=== PATIENT | male | born 1955 | race Two or more races ===

== ENCOUNTER 2020-03-13 17:43 | Inpatient (IN) | payer OTHER ==
[~2020-03-13] VITALS: Ht 170.2 cm; Wt 63.5 kg
[2020-03-13] MEDS ORDERED: LEVOFLOXACIN 750 MG /D5W 150ML PIGGYBACK IV ONE (18:00)
--- NOTE | 2020-03-13 18:05 | NUR ---
MOVE SHEET SUBMITTED AND CALLED FOR [facility] BED.
--- NOTE | 2020-03-13 18:12 | NUR ---
DANIELLA FROM [facility]. TO ER BED 5. AAOX4. IN MOD RESP DISTRESS, BREATHING RAPID AND SHALLOW. ON NON REBREATHER @ 15LPM SATTING @ 95%. BROUGHT ON IN FOR DYSPNEA. PT WAS REPORTED TO HAVE 02 SAT @ 83% DESPITE THE BASLINE USE OF 02 VIA NC @ 2LPM. PER REPORT, PT WAS SATTING 96%. PT IS REPORTED TO ALREADY BE ON ATB FOR PNA. PT IS AFEBRILE UPON ASSESSMENT, 98.3 RECTALLY. WAS AT THE BEDSIDE FOR EVAL. ORDERS RECEIVED NOTED AND CARRIED OUT. IV LINE ESTABLISHED ON THE RFA 20G. BLOOD DRAWN AND GIVEN TO INSURANCE ADVISOR AT BEDSIDE. RT AT BEDSIDE WELL. EKG DONE.
[2020-03-13 18:16] LABS: ABG BASE EXCESS -5.4 mmol/L; ABG OXYGEN SATURATION 93.1 % (92.0-98.5); ABG PCO2 52.5 mmHg (35.0-45.0); ABG PH 7.243 (7.350-7.450); ABG PO2 78.6 mmHg (75.0-100.0); AaDO2 581.9 mmHg; COHb 0.3 % (0.5-1.5); MetHb 0.5 % (0.0-1.5); O2Hb 92.4 % (94.0-97.0); SITE, ABG Right Radial; VENT MODE, BG NON REBREATHER 100%
--- NOTE | 2020-03-13 18:30 | NUR ---
PT IS ON BIPAP: RATE 70%
[2020-03-13 18:33] LABS: BASOPHILS % (AUTO) 0.5 % (0.0-2.0); HEMATOCRIT 35 % (39-51); HEMOGLOBIN 11.1 g/dL (13.5-17.5); LYMPHOCYTES # (AUTO) 0.3 /CMM (0.8-4.8); LYMPHOCYTES % (AUTO) 3.9 % (20.0-44.0); MEAN CORPUSCULAR HGB CONC 32 g/dl (31.0-36.0); MEAN CORPUSCULAR VOLUME 97 fL (80-96); MONOCYTES # (AUTO) 0.2 /CMM (0.1-1.30); MONOCYTES % (AUTO) 2.9 % (2.0-12.0); NEUTROPHILS % (AUTO) 92.7 % (43.0-81.0); PLATELET COUNT (AUTO) 213 /CMM (150-450); RED BLOOD CELL COUNT(AUTO) 3.57 MIL/uL (4.5-6.0); WHITE BLOOD COUNT (AUTO) 7.6 K/uL (4.3-11.0)
[2020-03-13] MEDS ORDERED: BISM262T14 PO (18:35)
[2020-03-13] MEDS ORDERED: TAMS-12 PO (18:35)
[2020-03-13] MEDS ORDERED: AMIO200T4 PO (18:35)
[2020-03-13] MEDS ORDERED: FURO80TA85 PO (18:35)
[2020-03-13] MEDS ORDERED: MAGN400O6 PO (18:35)
[2020-03-13] MEDS ORDERED: ACET-2605 PO (18:35)
[2020-03-13] MEDS ORDERED: CLOP75TA15 PO (18:35)
[2020-03-13] MEDS ORDERED: CHOL100040 PO (18:35)
[2020-03-13] MEDS ORDERED: PANT40TA49 PO (18:35)
[2020-03-13] MEDS ORDERED: ASPI-1169 PO (18:35)
[2020-03-13] MEDS ORDERED: NA P133E RC (18:35)
[2020-03-13] MEDS ORDERED: CRAN450C PO (18:35)
[2020-03-13] MEDS ORDERED: CARV6.25 PO (18:35)
[2020-03-13] MEDS ORDERED: ACET325C7 PO (18:35)
[2020-03-13] MEDS ORDERED: SENN-175 PO (18:35)
[2020-03-13] MEDS ORDERED: BISA10SU61 RC (18:35)
[2020-03-13 18:59] LABS: D-DIMER 1.26 mg/L(FEU (0.17-0.50)
--- NOTE | 2020-03-13 19:04 | NUR ---
SPOKE WITH NILA CASEY STATISTICIAN FOR CLINICAL UPDATES. WILL CALL BACK FOR APPROVAL
[2020-03-13 19:11] LABS: CREATINE KINASE, TOTAL 95 U/L (39-308); FERRITIN 422 ng/mL (8-388)
[2020-03-13 19:12] LABS: C-REACTIVE PROTEIN 5.2 mg/dL (0.0-0.9)
[2020-03-13 19:29] LABS: ALANINE AMINOTRANSFERASE 44 U/L (12-78); ALKALINE PHOSPHATASE 129 U/L (46-116); ASPARTATE AMINOTRANSFERASE 53 U/L (15-37); B-TYPE NATRIURETIC PEPTIDE 29271 PG/ML (0-125); BILIRUBIN,TOTAL 0.4 mg/dL (0.2-1.0); CALCIUM, SERUM 8.4 mg/dL (8.5-10.1); CARBON DIOXIDE 22 mmol/L (21-32); CHLORIDE 101 mmol/L (98-107); CREATININE 2.9 mg/dL (0.6-1.3); GLUCOSE 198 mg/dL (74-106); SODIUM SERUM 133 mmol/L (136-145); TOTAL PROTEIN, SERUM 7.6 g/dL (6.4-8.2); UREA NITROGEN, BLOOD 46 mg/dL (7-18)
[2020-03-13 19:34] LABS: POTASSIUM 6.8 mmol/L (3.5-5.1)
--- NOTE | 2020-03-13 19:45 | NUR ---
JAGRUTI PLATT (SON): [phone]
--- NOTE | 2020-03-13 19:46 | NUR ---
SON GIVEN UPDATE REGARDING HIS FATHER
[2020-03-13] MEDS ORDERED: FUROSEMIDE 20 MG/2 ML VIAL ONE (19:54)
[2020-03-13] MEDS ORDERED: INSULIN REGULAR, HUMAN 100 UNIT/ML 10 ML VIAL ONE (19:55)
[2020-03-13] MEDS ORDERED: CALCIUM CHLORIDE 1,000 MG/10 ML DISP.SYRIN ONE (19:55)
[2020-03-13] MEDS ORDERED: DEXTROSE 50%-WATER 50 ML DISP.SYRIN ONE (19:55)
[2020-03-13] MEDS ORDERED: SODIUM BICARBONATE SYR 50 MEQ/50 ML DISP.SYRIN ONE (19:55)
[2020-03-13] MEDS ORDERED: SODIUM BICARBONATE SYR 50 MEQ/50 ML DISP.SYRIN IV ONE (20:00)
[2020-03-13] MEDS ORDERED: INSULIN REGULAR, HUMAN 100 UNIT/ML 10 ML VIAL IV ONE (20:00)
[2020-03-13] MEDS ORDERED: FUROSEMIDE 40 MG/4 ML VIAL IV ONE (20:00)
[2020-03-13] MEDS ORDERED: ALBUTEROL FS 2.5 MG/3 ML VIAL.NEB NEB ONE (20:00)
[2020-03-13] MEDS ORDERED: CALCIUM CHLORIDE 1,000 MG/10 ML DISP.SYRIN IV ONE (20:00)
[2020-03-13] MEDS ORDERED: DEXTROSE 50%-WATER 50 ML DISP.SYRIN IV ONE (20:00)
[2020-03-13] MEDS ORDERED: ALBUTEROL FS 2.5 MG/3 ML VIAL.NEB ONE ×2 (20:32→20:44)
[2020-03-13] MEDS ORDERED: IPRATROPIUM NEB FS 0.5 MG/2.5 ML AMPUL.NEB NEB PRN (21:00)
[2020-03-13] MEDS ORDERED: FUROSEMIDE 40 MG/4 ML VIAL IV SCH (21:00)
[2020-03-13] MEDS ORDERED: MAGNESIUM HYDROXIDE 30 ML UDC PO PRN (21:00)
[2020-03-13] MEDS ORDERED: DEXTROSE 50%-WATER 50 ML DISP.SYRIN IV PRN (21:00)
[2020-03-13] MEDS ORDERED: CEFEPIME 1 GM in IV D5W 50 ML IV SCH (21:00)
[2020-03-13] MEDS ORDERED: LEVALBUTEROL HCL NEB 1.25 MG/0.5 ML VIAL.NEB NEB PRN (21:00)
[2020-03-13] MEDS ORDERED: BISMUTH SUBSALICYLATE TAB 262 MG TAB.CHEW PO SCH (21:00)
[2020-03-13] MEDS ORDERED: BISACODYL SUPP (10 MG) 10 MG/SUPP.RECT SUPP.RECT RC PRN (21:00)
[2020-03-13] MEDS ORDERED: SODIUM POLYSTYRENE SULFONATE 15 G/60 ML BOTTLE PO ONE (21:00)
[2020-03-13] MEDS ORDERED: CEFEPIME 2 GM in IV D5W 100 ML IV SCH (21:00)
[2020-03-13] MEDS ORDERED: NA PHOS,M-B/NA PHOS,DI-BA 1 EA ENEMA RC PRN (21:00)
[2020-03-13 21:36] LABS: CALCIUM, SERUM 9.7 mg/dL (8.5-10.1); CREATININE 2.9 mg/dL (0.6-1.3); POTASSIUM 5.1 mmol/L (3.5-5.1)
--- NOTE | 2020-03-13 21:38 | NUR ---
RT AT BEDSIDE FOR BIPAP WEENING
[2020-03-13] MEDS ORDERED: VANCOMYCIN 1 GM in IV D5W 250 ML IV SCH (22:00)
--- NOTE | 2020-03-13 22:12 | NUR ---
REPORT GIVEN TO DAVIDA KC FOR KELSI.
--- NOTE | 2020-03-13 22:27 | NUR ---
ADDITIONAL URINE OUTPUT NOTED AT 625ML.
[2020-03-13 22:38] LABS: APPEARANCE,URINE CLOUDY (CLEAR); BILIRUBIN,URINE NEGATIVE (NEGATIVE); BLOOD, URINE MODERATE Ery/uL (NEGATIVE); COLOR,URINE YELLOW (YELLOW); KETONES,URINE NEGATIVE (NEGATIVE); LEUKOCYTE ESTERASE ,URINE LARGE (NEGATIVE); NITRITE, URINE NEGATIVE (NEGATIVE); PROTEIN,URINE 30 mg/dl (NEGATIVE); UGLUCOSE NEGATIVE (NEGATIVE); UROBILINOGEN,URINE 0.2 EU/dL (0.2)
[2020-03-13] MEDS: IV NS 0.9% 250 ML IV PRN (22:39)
--- NOTE | 2020-03-13 22:39 | NUR ---
PT TRANSPORTED TO UNIT ON GURNEY WITH EMT AND RN AT BEDSIDE W/ ACLS PROTOCOL. NAD NOTED DURING TRANSPORT.
[2020-03-13 22:43] LABS: BACTERIA,URINE Moderate /HPF (None Seen); SQUAMOUS EPITHELIAL CELL,UR Rare /HPF (None Seen); WBC,URINE TOO NUMEROUS TO COUN /HPF (0-3)
[2020-03-13 22:46] VITALS: BP 134/92
[2020-03-13] MEDS: HEPARIN SODIUM, PORCINE 5000 UNITS/1 ML VIAL SQ SCH (22:48)
[2020-03-13] MEDS: BLOOD SUGAR DIAGNOSTIC 1 EACH STRIP VI SCH (22:51)
[2020-03-13] MEDS: *INSULIN REGULAR(HUMULIN R)HUM 100 UNIT/ML VIAL SQ PRN (22:54)
[2020-03-13 23:00] VITALS: BP 127/86
--- NOTE | 2020-03-13 23:00 | NUR ---
PEST CONTROL SERVICE TECHNICIAN NON ADMIT PO MEDS AT THIS TIME PT IS SEVERELY SOB; WILL PLACE ON BIPAP.
[2020-03-13] MEDS: ATORVASTATIN 40 MG TABLET PO SCH (23:02)
[2020-03-13] MEDS: TAMSULOSIN 0.4 MG CAP.SR.24H PO SCH (23:02)
[2020-03-13] MEDS: BISMUTH SUBSALICYLATE 262 MG/15 ML BOTTLE PO SCH (23:02)
[2020-03-13] MEDS: SENNOSIDES 8.6 MG TABLET PO SCH (23:03)
--- NOTE | 2020-03-13 23:15 | NUR ---
DOOR AND ARRIVAL ATTENDANT PT RCD FROM ER W/LABORED BREATHING AND LOW O2 UNABLE TO ANSWER QUESTIONS AT THIS TIME. CALL PLACED TO DR WILLETT W/ORDERS TO PLACE ON BIPAP. RT NOTIFIED.
--- NOTE | 2020-03-13 23:55 | NUR ---
DENTAL OFFICE RECEPTIONIST PLACED ON BIPAP 11/11 14 100%; DECREASED WORK OF BREATHING NOTED. CONTINUE TO MONITOR. F/U WITH ABG AND CXR IN AM.
--- NOTE | 2020-03-13 23:55 | NUR ---
PT WAS ON NRB O2 SAT 82% AND LABORED BREATHING. PER DR WILLETT TO PLACE PT BACK ON BIPAP. SETTINGS 15/, 14, 100%. PT IS AWAKE AND ALERT AND HE SAID HE IS MORE COMFORTABLE WITH BIPAP ON. ALARMS SET AND AUDIBLE. CONTINUE TO MONITOR. Addendum: 03/13/20 at 2358 by JOSE ARMANDO WEBBER RT Amended: Links added.
[2020-03-14] VITALS (37 sets, daily range): BP systolic 88–145; BP diastolic 39–88
[2020-03-14 04:17] LABS: BASOPHILS % (AUTO) 0.3 % (0.0-2.0); HEMATOCRIT 33 % (39-51); HEMOGLOBIN 10.6 g/dL (13.5-17.5); LYMPHOCYTES # (AUTO) 0.3 /CMM (0.8-4.8); LYMPHOCYTES % (AUTO) 4.4 % (20.0-44.0); MEAN CORPUSCULAR HGB CONC 33 g/dl (31.0-36.0); MEAN CORPUSCULAR VOLUME 95 fL (80-96); MONOCYTES # (AUTO) 0.4 /CMM (0.1-1.30); MONOCYTES % (AUTO) 5.6 % (2.0-12.0); NEUTROPHILS # (AUTO) 6.3 /CMM (1.8-8.9); NEUTROPHILS % (AUTO) 89.7 % (43.0-81.0); PLATELET COUNT (AUTO) 190 /CMM (150-450); RED BLOOD CELL COUNT(AUTO) 3.43 MIL/uL (4.5-6.0); WHITE BLOOD COUNT (AUTO) 7.1 K/uL (4.3-11.0)
[2020-03-14 04:30] LABS: ALBUMIN 2.7 g/dL (3.4-5.0); BILIRUBIN,TOTAL 0.4 mg/dL (0.2-1.0); CALCIUM, SERUM 9.1 mg/dL (8.5-10.1); CREATININE 2.8 mg/dL (0.6-1.3); POTASSIUM 4.8 mmol/L (3.5-5.1); TOTAL PROTEIN, SERUM 6.9 g/dL (6.4-8.2)
[2020-03-14 04:36] LABS: THYROID STIMULATING HORMONE 2.172 uIU/mL (0.358-3.74)
--- NOTE | 2020-03-14 07:30 | NUR ---
RN NOTES RECEIVED PATIENT, ASLEEP BUT IS EASILY AWAKEN BY VERBAL STIMULI, A/O X4. ABLE TO RESPOND APPROPRIATELY. ABLE TO FOLLOW COMMAND. ON BIPAP, NO SHORTNESS OF BREATH NOTED. SATING FINE. SINUS EREN ON THE MONITOR WITH HR ON THE HIGH 50s. WARMTH TO TOUCH BUT ID AFEBRILE AT 97.8. HADDAD CATHETER IN PLACE, DRAINING VIA GRAVITY TO YELLOW CLOUDY URINE. PATIENT ENCOURAGE TO CALL FOR HELP/ASSISTANCE, VERBALIZE FEELINGS AND CONCERN. CALL LIGHT PLACE WITHIN REACH. SAFETY MEASURES OBSERVED AND MAINTAINED. PATIENT INFORMED ABOUT COVID ISOLATION AND THGE GOALS FOR TODAY. WILL CONRINUE TO MONITOR PATIENT ACCORDINGLY
[2020-03-14] MEDS: BLOOD SUGAR DIAGNOSTIC 1 EACH STRIP VI SCH ×4 (08:42→22:28)
--- NOTE | 2020-03-14 08:45 | NUR ---
RT Pt taken off BiPAP and placed on 15L non rebreather per Dr. Hudson request. Pt is tolerating well, no SOB or respiratory distress noted. Addendum: 03/14/20 at 0909 by FRANK MORA RT Amended: Links added.
[2020-03-14] MEDS: BISMUTH SUBSALICYLATE 262 MG/15 ML BOTTLE PO SCH ×4 (09:00→21:52)
[2020-03-14] MEDS: CLOPIDOGREL BISULFATE 75 MG TABLET PO SCH (09:00)
[2020-03-14] MEDS: CARVEDILOL 3.125 MG TABLET PO SCH ×2 (09:00→17:00)
[2020-03-14] MEDS ORDERED: AMIODARONE HCL 200 MG TABLET PO SCH (09:00)
[2020-03-14] MEDS: PANTOPRAZOLE 40 MG TABLET.DR PO SCH ×2 (09:00→17:23)
[2020-03-14] MEDS ORDERED: CARVEDILOL 6.25 MG TABLET PO SCH (09:00)
[2020-03-14] MEDS: ASPIRIN 81 MG TAB.CHEW PO SCH (09:00)
[2020-03-14] MEDS: TAMSULOSIN 0.4 MG CAP.SR.24H PO SCH (09:00)
--- NOTE | 2020-03-14 09:00 | NUR ---
RN NOTES MEDICATIONS NOT ADMINISTERED AAS PATIENT IN ON BIPAP MASK
[2020-03-14 09:25] LABS: ABG BASE EXCESS 0.1 mmol/L; ABG OXYGEN SATURATION 95.2 % (92.0-98.5); ABG PCO2 50.3 mmHg (35.0-45.0); ABG PH 7.338 (7.350-7.450); ABG PO2 77.8 mmHg (75.0-100.0); AaDO2 439.8 mmHg; COHb 0.1 % (0.5-1.5); MetHb 0.3 % (0.0-1.5); O2Hb 94.8 % (94.0-97.0); SITE, ABG Left Brachial
[2020-03-14] MEDS: FUROSEMIDE 40 MG/4 ML VIAL IV SCH ×2 (09:42→18:08)
[2020-03-14] MEDS: DEXAMETHASONE SOD PHOSPHATE 10 MG/ML VIAL IV SCH (09:42)
[2020-03-14] MEDS: HEPARIN SODIUM, PORCINE 5000 UNITS/1 ML VIAL SQ SCH ×2 (09:43→21:56)
[2020-03-14 11:44] LABS: ABG BASE EXCESS 1.6 mmol/L; ABG OXYGEN SATURATION 95.2 % (92.0-98.5); ABG PCO2 53.8 mmHg (35.0-45.0); ABG PH 7.337 (7.350-7.450); ABG PO2 79.2 mmHg (75.0-100.0); AaDO2 434.7 mmHg; COHb 0.3 % (0.5-1.5); MetHb 0.3 % (0.0-1.5); O2Hb 94.6 % (94.0-97.0); SITE, ABG Left Brachial
[2020-03-14] MEDS: INSULIN REGULAR, HUMAN 100 UNIT/ML 3 ML VIAL SQ PRN (12:13)
--- NOTE | 2020-03-14 17:00 | NUR ---
RN NOTES CARVEDILOL NOT GIVEN DUE TO PATIENT SYSTOLIC BLOOD PRESSURE <100MMHG
[2020-03-14] MEDS: *INSULIN REGULAR(HUMULIN R)HUM 100 UNIT/ML VIAL SQ PRN (17:31)
--- NOTE | 2020-03-14 19:15 | NUR ---
ICU/RN RECEIVED PATIENT ON NRB AT 15L. PATIENT AT THIS TIME DOES NOT COMPLAIN OF ANY SOB. PATIENT IS A/O X4 GAMBIAN AND PASHTO SPEAKING. TEACHING WAS GIVEN IF PATIENT EXPERIENCES EPISODES OF SOB THAT WE WILL NEED TO PLACE HIM ON BIPAP. HE SAYS HE IS ABLE TO TOLERATE THE NRB AT THIS TIME WITH NO SOB. PATIENT DOES NOT SEEM IN DISTRESS. PATIENT ON THE MONITOR SHOWING SINUS WITH EPISODES OF SINUS EREN HR AT 55. FC IN PLACE WITH YELLOW OUTPUT. PATIENT IS AFEBRILE AT 97.9. ALL SAFETY PRECAUTIONS APPLIED WILL CONTINUE TO MONITOR.
[2020-03-14] MEDS: SENNOSIDES 8.6 MG TABLET PO SCH (21:52)
[2020-03-14] MEDS: ATORVASTATIN 40 MG TABLET PO SCH (21:54)
[2020-03-14] MEDS: INSULIN GLARGINE, 100 UNIT/ML CARTRIDGE SQ SCH (22:00)
[2020-03-14] MEDS ORDERED: VANCOMYCIN 0.75 GM in IV D5W 250 ML IV SCH (22:00)
--- NOTE | 2020-03-14 22:00 | NUR ---
ALL MEDS GIVEN. PATIENT COMFORTABLE IN BED WITH NO SIGN OF ANY DISTRESS.
[2020-03-15] VITALS (30 sets, daily range): BP systolic 88–134; BP diastolic 52–76
[2020-03-15] MEDS: FUROSEMIDE 40 MG/4 ML VIAL IV SCH (01:44)
--- NOTE | 2020-03-15 02:07 | NUR ---
PATIENT SEEMS TO BE HAVING SOME SOB. RESPIRATIONS ARE AT 30/MIN. PATIENT'S SPO2 IS AT 90%. I ASKED PATIENT IF HE WAS HAVING SOB HE SAID "JUST A LITTLE". I ASKED PATIENT IS HE WOULD WANT TO BE PLACED ON THE BIPAP MACHINE AND HE REFUSED. HE SAYS "THE BIPAP MACHINE IS TOO STRONG". I EXPLAINED TO HIM THE BENEFIT OF THE MACHINE BUT PATIENT STILL REFUSED. WILL CONTINUE TO MONITOR PATIENT FOR CONTINUATION OF DESATURATING SPO2.
[2020-03-15 04:03] LABS: BASOPHILS % (AUTO) 0.1 % (0.0-2.0); HEMATOCRIT 34 % (39-51); HEMOGLOBIN 10.7 g/dL (13.5-17.5); LYMPHOCYTES # (AUTO) 0.3 /CMM (0.8-4.8); LYMPHOCYTES % (AUTO) 2.8 % (20.0-44.0); MEAN CORPUSCULAR HGB CONC 32 g/dl (31.0-36.0); MEAN CORPUSCULAR VOLUME 96 fL (80-96); MONOCYTES # (AUTO) 0.4 /CMM (0.1-1.30); MONOCYTES % (AUTO) 3.9 % (2.0-12.0); NEUTROPHILS # (AUTO) 9.2 /CMM (1.8-8.9); NEUTROPHILS % (AUTO) 93.2 % (43.0-81.0); PLATELET COUNT (AUTO) 186 /CMM (150-450); RED BLOOD CELL COUNT(AUTO) 3.51 MIL/uL (4.5-6.0); WHITE BLOOD COUNT (AUTO) 9.9 K/uL (4.3-11.0)
[2020-03-15 04:30] LABS: CALCIUM, SERUM 8.6 mg/dL (8.5-10.1); POTASSIUM 3.8 mmol/L (3.5-5.1)
--- NOTE | 2020-03-15 06:50 | NUR ---
SPOKE TO PATIENT'S FAMILY MEMBER DANICA (SON). JUST WANTING TO KNOW THE STATUS ON HIS PATIENT. ANSWERED ALL QUESTIONS. THE SON DID MENTION THAT HE WOULD LIKE TO DROP OFF THE PATIENTS PHONE TO HIM IN THE NEXT COUPLE OF DAYS.
--- NOTE | 2020-03-15 07:26 | NUR ---
WOUND CARE CONSULT: REVIEWED CHART AND NURSING DOCUMENTATION. CURRENT CRISTIANE SCORE IS 14. RECOMMENDATIONS MADE FOR SKIN PROTECTION. DISCUSSED WITH NURSING STAFF. WILL SEE PRN. PT IS ON [facility] LOW AIRLOSS BED. MD IN AGREEMENT WITH PLAN OF CARE.
--- NOTE | 2020-03-15 08:15 | NUR ---
RN OPENING NOTE: RECEIVED PATIENT IN BED THIS MORNING. PATIENT IS AAOX4, RESPONDS APPROPRIATELY. ON HIGH FLOW, TOLERATING SETTINGS WELL. NO SIGNS OF ACUTE DISTRESS NOTED AT THIS TIME. SR IN THE 70S NOTED ON THE BEDSIDE MONITOR. PATIENT HAS HADDAD, DRAINING. #20 RFA 322 KADE, C/D/I, FLUSHING WELL, NO SIGNS OF COMPLICATIONS NOTED. SAFETY MEASURES IMPLEMENTED, BED IN LOWEST POSITION, LOCKED, SIDE RAILS UP, CALL LIGHT WITHIN REACH. WILL CONTINUE TO MONITOR PATIENT FOR CHANGES.
[2020-03-15 08:46] LABS: ABG BASE EXCESS 2.3 mmol/L; ABG OXYGEN SATURATION 90.4 % (92.0-98.5); ABG PCO2 56.2 mmHg (35.0-45.0); ABG PH 7.333 (7.350-7.450); ABG PO2 60.3 mmHg (75.0-100.0); AaDO2 596.5 mmHg; COHb 0.5 % (0.5-1.5); MetHb 0.3 % (0.0-1.5); O2Hb 89.7 % (94.0-97.0); SITE, ABG Left Brachial; VENT MODE, BG NRB 15 LPM
[2020-03-15] MEDS: DEXAMETHASONE SOD PHOSPHATE 10 MG/ML VIAL IV SCH (08:56)
[2020-03-15] MEDS: HEPARIN SODIUM, PORCINE 5000 UNITS/1 ML VIAL SQ SCH ×2 (08:56→20:57)
[2020-03-15] MEDS: CARVEDILOL 3.125 MG TABLET PO SCH ×2 (08:56→17:00)
[2020-03-15] MEDS: BISMUTH SUBSALICYLATE 262 MG/15 ML BOTTLE PO SCH ×4 (08:57→20:55)
[2020-03-15] MEDS: ASPIRIN 81 MG TAB.CHEW PO SCH (08:57)
[2020-03-15] MEDS: CLOPIDOGREL BISULFATE 75 MG TABLET PO SCH (08:57)
[2020-03-15] MEDS: TAMSULOSIN 0.4 MG CAP.SR.24H PO SCH (08:57)
[2020-03-15] MEDS: Z GUARD REMEDY 2 OZ OINT TP PRN (09:03)
[2020-03-15] MEDS: PANTOPRAZOLE 40 MG TABLET.DR PO SCH ×2 (09:03→17:06)
[2020-03-15] MEDS: Z GUARD REMEDY 2 OZ OINT TP SCH (09:05)
[2020-03-15] MEDS: BLOOD SUGAR DIAGNOSTIC 1 EACH STRIP VI SCH ×4 (09:15→21:03)
[2020-03-15] MEDS: INSULIN REGULAR, HUMAN 100 UNIT/ML 3 ML VIAL SQ PRN ×4 (09:24→21:33)
[2020-03-15] MEDS: MEROPENEM 1 G in IV NS 0.9% 100 ML IV SCH ×2 (09:25→20:54)
--- NOTE | 2020-03-15 10:30 | NUR ---
DR JOSHI FILLED OUT PAPERWORK FOR PATIENT'S CONVALESCENT PLASMA. FAXED OVER TO LAB.
[2020-03-15 10:36] LABS: THYROID STIMULATING HORMONE 1.053 uIU/mL (0.358-3.74)
--- NOTE | 2020-03-15 11:00 | NUR ---
PHARMACY STILL PREPARING ACTEMRA
--- NOTE | 2020-03-15 11:27 | NUR ---
RECEIVED COVID RESULT, PATIENT IS POSITIVE PER LAB.
--- NOTE | 2020-03-15 11:28 | NUR ---
ICU MADE AWARE OF PCR RESULT.
[2020-03-15] MEDS ORDERED: TOCILIZUMAB 400 MG in IV NS 0.9% 80 ML IV ONE (12:30)
--- NOTE | 2020-03-15 14:03 | NUR ---
PHARMACY IS STILL PREPARING ZYVOX.
[2020-03-15] MEDS: LINEZOLID RTU BAG 600 MG in PREMIX 1 EA IV SCH ×2 (14:57→23:27)
--- NOTE | 2020-03-15 17:43 | NUR ---
PRELIMINARY RESULT OF ECHOCARDIOGRAM SHOWED EF 25-30%~. RN ADVISED OF INITIAL FINDING .
--- NOTE | 2020-03-15 18:29 | NUR ---
RN CLOSING NOTE: PATIENT REMAINS IN BED. NO SIGNS OF ACUTE DISTRESS NOTED AT THIS TIME. SSR IN THE 60S ON THE MONITOR. SAFETY MEASURES IMPLEMENTED, BED IN LOWEST POSITION, LOCKED, SIDE RAILS UP, CALL LIGHT WITHIN REACH. WILL ENDORSE TO ONCOMING SHIFT RN FOR CONTINUITY OF CARE.
--- NOTE | 2020-03-15 19:01 | NUR ---
INFORMED PM RN TO FOLLOW UP WITH ECHO RESULTS AND RELAY TO
--- NOTE | 2020-03-15 19:30 | NUR ---
RN NOTE RECEIVED PT IN BED, AO X4, NO S/SX OF ACUTE DISTRESS AT THIS TIME. PATIENT'S BREATHING APPEARS LABORED. PATIENT IS ON 15 L OF OXYGEN VIA HIGH FLOW NC; TOLERATING WELL. PATIENT ON TELE MONITORING READING SR, HR IS AT 60'S. NOTED IV SITE AT KADE G22, AND LFA G20 WITH NS AT TKO, BOTH PATENT AND FLUSHING WELL, NO S/S OF INFECTION OR INFILTRATION. NO SKIN ISSUES NOTED. HADDAD CATH CONNECTED TO URINE BAG IN PLACE AND DRAINING TO A CLEAR YUE URINE. SAFETY MEASURES IMPLEMENTED PER PROTOCOL. PATIENT BED ALARM IS ON. HEAD OF BED ELEVATED. BED IS LOCKED, IN LOWEST POSITION AND SIDE RAILS UP. CALL LIGHT WITHIN REACH OF THE PATIENT. WILL CONTINUE TO MONITOR AND REASSESS FOR ANY CHANGES. Addendum: 03/15/20 at 2232 by OLYA HU RN PATIENT CURRENTLY ON 60 LPM OF SUPPLEMENTAL OXYGEN VIA HIGH FLOW.
[2020-03-15] MEDS: ATORVASTATIN 40 MG TABLET PO SCH (21:02)
[2020-03-15] MEDS: SENNOSIDES 8.6 MG TABLET PO SCH (21:02)
[2020-03-15] MEDS: INSULIN GLARGINE, 100 UNIT/ML CARTRIDGE SQ SCH (21:24)
--- NOTE | 2020-03-15 21:27 | NUR ---
RT NOTE PT RECEIVED ON HIGH FLOW NASAL CANNULA @ 95% ON 60 LPM. PT AWAKE/ALERT. NO DISTRESS NOTED AT THIS TIME. WATER BAG LEVEL GOOD. WILL CONTINUE TO MONITOR. Addendum: 03/15/20 at 2128 by SALOMÓN WEST RT Amended: Links added.
--- NOTE | 2020-03-15 23:15 | NUR ---
RN NOTE NOTED FIO2 TITRATED TO 85% @ 60 LPM BY SALOMÓN CARDOZA. WILL CONT TO MONITOR.
--- NOTE | 2020-03-15 23:15 | NUR ---
RT NOTE PT AWAKE/ALERT. TITRATED FIO2 TO 85% @ 60 LPM. RN OLYA AWARE. NO DISTRESS NOTED. WATER BAG 1/2 FULL. WILL CONTINUE TO MONITOR.
[2020-03-15] MEDS: IV NS 0.9% 250 ML IV PRN (23:53)
[2020-03-16] VITALS (50 sets, daily range): BP systolic 86–116; BP diastolic 43–74
--- NOTE | 2020-03-16 01:10 | NUR ---
RN NOTED NOTED SATURATION AT 88-89%. HOB ELEVATED AND ADVISED PATIENT TO PERFORM DEEP BREATHING. RT NOTIFIED. WILL CONT TO MONITOR.
--- NOTE | 2020-03-16 01:21 | NUR ---
RT NOTE INCREASED FIO2 TO 90% DUE TO DESATURATION. SPO2 @ 90-91%. WILL CONTINUE TO MONITOR. DAVIDA DOBSON AT BEDSIDE.
--- NOTE | 2020-03-16 02:50 | NUR ---
RN NOTE NOTED PATIENT SATURATING AT 87% ON FIO2 90% AT 60 LPM VIA HIGH FLOW. RT NOTIFIED. FIO2 TITRATED UP TO 95%, SATURATION SUSTAINED AT 85-86%. GRANULATOR OPERATOR MADE AWARE AND DR GARZA NOTIFIED. ORDERS TO INTUBATE PATIENT RECEIVED. Addendum: 03/16/20 at 0521 by OLYA HU RN PATIENT WAS PUT ON 15 LPM VIA NRB MASK IN ADDITION TO HIGH FLOW 60 LPM AT FIO2 95%.
--- NOTE | 2020-03-16 03:00 | NUR ---
ICU/RN- ABGS DONE BY RT. ON NRB 100% + HI FLOW 100%, SATS.-83%
[2020-03-16 03:04] LABS: ABG BASE EXCESS 3.8 mmol/L; ABG OXYGEN SATURATION 83.4 % (92.0-98.5); ABG PCO2 47.8 mmHg (35.0-45.0); ABG PH 7.404 (7.350-7.450); ABG PO2 48.2 mmHg (75.0-100.0); COHb 0.3 % (0.5-1.5); MetHb 0.1 % (0.0-1.5); O2Hb 83.1 % (94.0-97.0); SITE, ABG Right Brachial; VENT MODE, BG HFNC 95% 60LPM/ NRB 100%
--- NOTE | 2020-03-16 03:15 | NUR ---
ICU/RN- DR. CONNER MADE AWARE OF PT. RESPIRATORY STATUE AND ABGS W/ RBTO TO REQUEST ER MD TO INTUBATE PT.
--- NOTE | 2020-03-16 03:41 | NUR ---
ICU/RN- DR. DOOLEY HERE TO INTUBATE PT. W/ ORDER TO ADMINISTER ETOMIDATE 10MGS IVP + ROCURONIUM 80MG IVP IMMEDIATELY PRIOR TO INTUBATION.
--- NOTE | 2020-03-16 03:45 | NUR ---
ICU/RN- PT. INTUBATED BY DR. DOOLEY W/ A ETT 7.5 AT 21CM AT THE LIP AND SECURED WELL BY RT W/ OLIVARES AND HOOKED UP TO THE VENT W/ INITIAL SETTINGS OF AC-16, VT-500, FIO2-100%, PEEP+5. WILL DO ABG IN 1 HR.
--- NOTE | 2020-03-16 03:50 | NUR ---
RT NOTE PT INTUBATED WITH 7.5 ET TUBE @ 21 CM. ET TUBE SECURED VIA ANCHOR FAST. BILATERAL CHEST RISE. AMBU BAG @ HOB. SX DONE, SMALL THICK WHITE/YELLOW SECRETIONS NOTED. ALARMS ON AND AUDIBLE. VENT PLUGGED TO RED OUTLET. NO DISTRESS NOTED. WILL DRAW ABG IN ONE HOUR. Addendum: 03/16/20 at 0416 by SALOMÓN WEST RT Amended: Links added.
[2020-03-16] MEDS: PROPOFOL 100 ML IV PRN ×2 (04:03→14:09)
--- NOTE | 2020-03-16 04:03 | NUR ---
ICU/RN- ON THE VENT PER ETT ON AC MODE, RR- 30/MIN. DIPRIVAN DRIP INITIATED AT 5MCG/KG/MIN. PER DR. DOOLEY ORDER. WILL TITRATE PER PROTOCOL.
[2020-03-16 04:53] LABS: BASOPHILS % (AUTO) 0.1 % (0.0-2.0); HEMATOCRIT 31 % (39-51); LYMPHOCYTES # (AUTO) 0.2 /CMM (0.8-4.8); LYMPHOCYTES % (AUTO) 2.7 % (20.0-44.0); MEAN CORPUSCULAR HGB CONC 32 g/dl (31.0-36.0); MEAN CORPUSCULAR VOLUME 94 fL (80-96); MONOCYTES # (AUTO) 0.2 /CMM (0.1-1.30); MONOCYTES % (AUTO) 2.2 % (2.0-12.0); NEUTROPHILS # (AUTO) 6.6 /CMM (1.8-8.9); PLATELET COUNT (AUTO) 168 /CMM (150-450); WHITE BLOOD COUNT (AUTO) 6.9 K/uL (4.3-11.0)
[2020-03-16 04:57] LABS: ABG BASE EXCESS 4.1 mmol/L; ABG OXYGEN SATURATION 91.7 % (92.0-98.5); ABG PCO2 61.1 mmHg (35.0-45.0); ABG PH 7.328 (7.350-7.450); ABG PO2 67.7 mmHg (75.0-100.0); AaDO2 584.2 mmHg; COHb 0.2 % (0.5-1.5); MetHb 0.3 % (0.0-1.5); O2Hb 91.2 % (94.0-97.0); SITE, ABG Right Brachial
--- NOTE | 2020-03-16 04:57 | NUR ---
RN NOTE POST INTUBATION ABG RESULTED PH 7.328, PCO2 61, PO2 67.7. RT RECOMMENDED TO INCREASE TV TO 550 AND RATE TO 24. DR GARZA WAS NOTIFIED, ORDERED TO LEAVE VENT AT CURRENT SETTINGS AND DO A REPEAT ABG AT 1000. RT AND VELVET WEAVER MADE AWARE.
[2020-03-16 05:01] LABS: ALBUMIN 2.3 g/dL (3.4-5.0); BILIRUBIN,TOTAL 0.5 mg/dL (0.2-1.0); CALCIUM, SERUM 8.1 mg/dL (8.5-10.1); MAGNESIUM 2.1 mg/dL (1.8-2.4); PHOSPHORUS 4.3 mg/dL (2.5-4.9); POTASSIUM 3.8 mmol/L (3.5-5.1); TOTAL PROTEIN, SERUM 6.3 g/dL (6.4-8.2)
--- NOTE | 2020-03-16 05:21 | NUR ---
RT NOTE REPORTED POST INTUBATION ABG RESULTS TO DAVIDA DOBSON AND CHARGE NURSE GAEL. INFORMED DR. CONNER ABG RESULTS. INFORMS TO KEEP CURRENT SETTINGS OF AC 16, 500, 100%, +5 AND PERFORM ANOTHER ABG @ 1000.
--- NOTE | 2020-03-16 07:00 | NUR ---
RN NOTE PATIENT IN BED RESTING COMFORTABLY. PATIENT STILL SEDATED WITH DIPRIVAN AT 5 MCG/KG/MIN, IN NO ACUTE DISTRESS. PT BREATHING IS EVEN AND UNLABORED. [facility] WITH SETTINGS PRESCRIBED, SATURATING BETWEEN 93-94%. PATIENT ON HOTEL DINING ROOM CASHIER, READING SINUS RHYTHM WITH BBB, HR IS AT 60'S. CONVALESCENT PLASMA STILL RUNNING AT LFA. PATIENT IS CLEAN , DRY AND COMFORTABLE THROUGHOUT THE SHIFT. NEEDS AND CONCERNS ADDRESSED. HADDAD CATHETER IN PLACE. SAFETY MEASURES IN PLACED. PATIENT BED IS LOCKED AND IN LOWEST POSITION. SIDE RAILS UP. CALL LIGHT WITHIN REACH OF THE PATIENT. ENDORSED TO INNA HIGUERA FOR CONTINUATION OF CARE
--- NOTE | 2020-03-16 08:00 | NUR ---
Sedation Vacation Notes Patient oriented, able to follow command, nods yes/no appropriately to questions
[2020-03-16] MEDS ORDERED: BUMETANIDE INJ 16 MG in IV NS 0.9% 16 ML IV ONE (09:00)
[2020-03-16] MEDS: CARVEDILOL 3.125 MG TABLET PO SCH ×2 (09:00→16:22)
--- NOTE | 2020-03-16 10:00 | NUR ---
Medication clarification 1. Patient on aspirin 81mg daily, plavix 75mg daily, Heparin 5,000U Q12hr - Dr. Doshi clarified admin of all three is okay 1. Patient on both solucortef + dexamethasone. Mahad from pharmacy stated he texted Dr. Cameron who is aware, it is okay
[2020-03-16] MEDS: MEROPENEM 1 G in IV NS 0.9% 100 ML IV SCH ×2 (10:16→21:23)
[2020-03-16] MEDS: TAMSULOSIN 0.4 MG CAP.SR.24H PO SCH (10:22)
[2020-03-16] MEDS: CLOPIDOGREL BISULFATE 75 MG TABLET PO SCH (10:22)
[2020-03-16] MEDS: ASPIRIN 81 MG TAB.CHEW PO SCH (10:22)
[2020-03-16] MEDS: DEXAMETHASONE SOD PHOSPHATE 10 MG/ML VIAL IV SCH (10:23)
[2020-03-16] MEDS: BLOOD SUGAR DIAGNOSTIC 1 EACH STRIP VI SCH ×4 (10:24→21:57)
[2020-03-16] MEDS: PANTOPRAZOLE 40 MG/PACK PACK GT SCH (10:32)
[2020-03-16] MEDS: HYDROCORTISONE SOD SUCCINATE 100 MG/2 ML VIAL IV SCH ×3 (10:33→21:21)
[2020-03-16] MEDS: BISMUTH SUBSALICYLATE 262 MG/15 ML BOTTLE PO SCH ×4 (10:38→21:25)
[2020-03-16] MEDS: HEPARIN SODIUM, PORCINE 5000 UNITS/1 ML VIAL SQ SCH ×2 (10:39→21:23)
[2020-03-16] MEDS: Z GUARD REMEDY 2 OZ OINT TP SCH (10:39)
[2020-03-16] MEDS: LINEZOLID RTU BAG 600 MG in PREMIX 1 EA IV SCH ×2 (11:06→21:23)
[2020-03-16 11:40] LABS: ABG BASE EXCESS -0.3 mmol/L; ABG OXYGEN SATURATION 99.4 % (92.0-98.5); ABG PH 7.315 (7.350-7.450); COHb 0.1 % (0.5-1.5); MetHb 0.3 % (0.0-1.5); PEEP,BG 10 cm H2O; SITE, ABG Right Radial; VT, ABG 500 mL
[2020-03-16] MEDS: SOD FERRIC GLUC 125 MG in IV NS 0.9% 100 ML IV SCH (13:46)
[2020-03-16 14:08] LABS: *SPE A/G RATIO 0.7 (0.7-1.7); *SPE ALBUMIN 2.7 g/dL (2.9-4.4); *SPE ALPHA-1-GLOBULIN 0.4 g/dL (0.0-0.4); *SPE ALPHA-2-GLOBULIN 1.3 g/dL (0.4-1.0); *SPE BETA GLOBULIN 0.9 g/dL (0.7-1.3); *SPE GLOBULIN, TOTAL 3.7 g/dL (2.2-3.9); *SPE M-SPIKE Not Observed g/dL (Not Observed)
[2020-03-16] MEDS ORDERED: ROCURONIUM BROMIDE 50 MG/5 ML IV ONE (17:24)
[2020-03-16] MEDS ORDERED: FEE EMEERGENCY 1 MIN EA MC ONE (17:24)
[2020-03-16] MEDS ORDERED: ETOMIDATE 2 MG/ML VIAL IV ONE (17:24)
--- NOTE | 2020-03-16 18:25 | NUR ---
API DEVELOPER Closing Patient sedated, opens eyes to touch. Oriented, able to follow command. FiO2 70%, PEEP 10, SPO2 94%. 22@lip. No distress or SOB noted. RR 19 unlabored, even (AC 16). Suctioned 100mL of light pink thick sputum from ETT+oral cavity. Tele attached, sinus zoraida, HR 50s, 1st degree block. L nare GT 60@lip, in place, verified via auscultation+aspiration of light green gastric contents+CXR. Manzo draining yellow urine w/ sediment. No BM today. Skin remains intact. Turned per protocol. Restraints in place, no s/s impaired circulation or sensation. Passive range of motion (and active, as patient can move arms) done per protocol. NPO except meds. KADE 22G, LFA 20G IV sites clean, dry,intact,patent, no s/s infiltration or erythema. Diprivan infusing @10mcg/kg/min. Convalescent plasma given today.
--- NOTE | 2020-03-16 19:30 | NUR ---
RN OPENING NOTES Client is sedated on diprivan, 10mcg/kg/min. Client responds to light pain and touch. Client remains on full vent support. NG tube on left nare. Blood pressure remains low 90/59, HR 56. Client exhibits no s/s of distress at this time. No s/s of pain. Comfort measures provided, safety mechanisms in place, will continue to monitor.
--- NOTE | 2020-03-16 20:32 | NUR ---
RT NOTE Pt rec'd orally intubated via ETT #7.5 secured @ 21cm At the lipline. Pt on [facility] vent on AC mode settings as charted. Pt shows no signs of resp distress or sob. Sx'd for thick mod amt of yellow secretions. Alarms are set and audible. Ambu bag is bedside. Vent plugged into red outlet. Will continue to monitor closely Addendum: 03/16/20 at 2032 by WANDER SUAZO RT Amended: Links added.
[2020-03-16] MEDS: SENNOSIDES 8.6 MG TABLET PO SCH (21:21)
[2020-03-16] MEDS: ATORVASTATIN 40 MG TABLET PO SCH (21:21)
[2020-03-16] MEDS ORDERED: INSULIN GLARGINE, 100 UNIT/ML CARTRIDGE SQ SCH (22:00)
[2020-03-17] VITALS (43 sets, daily range): BP systolic 83–117; BP diastolic 53–74
--- NOTE | 2020-03-17 01:00 | NUR ---
RN NOTES The client remains stable at this time, no change of condition noted. Medications and bedside interventions provided at this time. VS WNL. The client remains sedated on propofol. Saturation is at 98% at this time.
--- NOTE | 2020-03-17 02:02 | NUR ---
RN NOTES Per RT, fio2 will be decreased to 60.
[2020-03-17] MEDS: PROPOFOL 100 ML IV PRN ×3 (02:12→21:13)
[2020-03-17] MEDS ORDERED: IV NS 0.9% 250 ML IV PRN (03:30)
[2020-03-17] MEDS: IV NS 0.9% 250 ML IV PRN ×2 (03:33→18:18)
[2020-03-17 04:54] LABS: HEMATOCRIT 30 % (39-51); HEMOGLOBIN 9.8 g/dL (13.5-17.5); LYMPHOCYTES # (AUTO) 0.2 /CMM (0.8-4.8); LYMPHOCYTES % (AUTO) 2.3 % (20.0-44.0); MEAN CORPUSCULAR HGB CONC 33 g/dl (31.0-36.0); MEAN CORPUSCULAR VOLUME 93 fL (80-96); MONOCYTES # (AUTO) 0.2 /CMM (0.1-1.30); MONOCYTES % (AUTO) 2.5 % (2.0-12.0); NEUTROPHILS # (AUTO) 7.2 /CMM (1.8-8.9); NEUTROPHILS % (AUTO) 95.2 % (43.0-81.0); PLATELET COUNT (AUTO) 171 /CMM (150-450); RED BLOOD CELL COUNT(AUTO) 3.25 MIL/uL (4.5-6.0); WHITE BLOOD COUNT (AUTO) 7.5 K/uL (4.3-11.0)
[2020-03-17 05:01] LABS: POTASSIUM 3.3 mmol/L (3.5-5.1)
[2020-03-17] MEDS: HYDROCORTISONE SOD SUCCINATE 100 MG/2 ML VIAL IV SCH ×3 (05:49→21:11)
[2020-03-17 05:58] LABS: C-REACTIVE PROTEIN 9.3 mg/dL (0.0-0.9)
--- NOTE | 2020-03-17 06:36 | NUR ---
RN CLOSING NOTES There have been no changes at tin the client condition. The client remains sedated. Gtube on the left nare remains intact. IV sites remain flushing well. No s/s of distress or pain at this time. VS WNL. Vent seatings as charted. Will endorse the incoming nurse for continuity of care.
--- NOTE | 2020-03-17 07:35 | NUR ---
RN NOTES Received patient in bed resting comfortably in moderate high back rest. Patient is on a vent, Intubated, sedated on diprivan, 10mcg/kg/min. patient responds to light pain and touch. NG tube on left nare. Noted with B/L sofet wrist restraint, No s/s of distress noted at this time. Isolation precaution maintained, Safety measures in place, bed in lowest locked position with side rails up, Will continue to monitor.
[2020-03-17] MEDS: BLOOD SUGAR DIAGNOSTIC 1 EACH STRIP VI SCH ×4 (08:05→22:52)
[2020-03-17] MEDS: CARVEDILOL 3.125 MG TABLET PO SCH ×2 (08:05→16:19)
[2020-03-17] MEDS: TAMSULOSIN 0.4 MG CAP.SR.24H PO SCH (08:13)
[2020-03-17] MEDS: PANTOPRAZOLE 40 MG/PACK PACK GT SCH (08:13)
[2020-03-17] MEDS: ASPIRIN 81 MG TAB.CHEW PO SCH (08:13)
[2020-03-17] MEDS: CLOPIDOGREL BISULFATE 75 MG TABLET PO SCH (08:13)
[2020-03-17] MEDS: DEXAMETHASONE SOD PHOSPHATE 10 MG/ML VIAL IV SCH (08:14)
[2020-03-17] MEDS: MEROPENEM 1 G in IV NS 0.9% 100 ML IV SCH ×2 (08:14→20:09)
[2020-03-17] MEDS: BISMUTH SUBSALICYLATE 262 MG/15 ML BOTTLE PO SCH ×4 (08:15→21:11)
[2020-03-17] MEDS: HEPARIN SODIUM, PORCINE 5000 UNITS/1 ML VIAL SQ SCH (08:15)
[2020-03-17] MEDS: LINEZOLID RTU BAG 600 MG in PREMIX 1 EA IV SCH (08:15)
[2020-03-17] MEDS: Z GUARD REMEDY 2 OZ OINT TP SCH (08:19)
[2020-03-17 08:28] LABS: ABG BASE EXCESS 6.2 mmol/L; ABG OXYGEN SATURATION 94.7 % (92.0-98.5); ABG PCO2 48.9 mmHg (35.0-45.0); ABG PH 7.426 (7.350-7.450); COHb 0.3 % (0.5-1.5); MetHb 0.1 % (0.0-1.5); O2Hb 94.3 % (94.0-97.0); SITE, ABG Right Radial; VENT MODE, BG AC 16 500 60% +10
[2020-03-17] MEDS ORDERED: POTASSIUM CHLORIDE 20 MEQ POWDER PACKET NG SCH (08:30)
[2020-03-17] MEDS: ENOXAPARIN SODIUM 60 MG/0.6 ML DISP.SYRIN SQ SCH (11:08)
[2020-03-17] MEDS: SOD FERRIC GLUC 125 MG in IV NS 0.9% 100 ML IV SCH (13:54)
--- NOTE | 2020-03-17 14:57 | NUR ---
RN NOTES REPORT GIVEN TO DAVIDA REYNOSO. NO SIGNS OF DISSTRESS NOTED, ANGELES TO CONTINUE PATIENT CARE.
[2020-03-17] MEDS: GLUCERNA 1.2 1,000 ML BOTTLE NG PRN (17:03)
--- NOTE | 2020-03-17 17:35 | NUR ---
ICU/RN PM CARE PROVIDED.DUE MEDS ARE GIVEN ORDERED.PT IS INTUBATED ON THE VENT AC MODE,FIO2-60%,PEEP-10.SEDATED ON DIPRIVAN DRIP.OPEN HIS EYES AND FOLLOWS COMMAND.V/S STABLE,AFEBRILE.NO PAIN REPORTED AT THIS TIME.BILATERAL SOFT WRIST RESTRAINS ON.NG TUBE FEEDING STARTED ORDERED.PT HAS 1 SOFT BM.F/C DRAINING WITH YELLOW URINE .SUCTION PROVIDED.REPOSITION FOR COMFORT.CONTINUE MONITORING.
[2020-03-17] MEDS: *INSULIN REGULAR(HUMULIN R)HUM 100 UNIT/ML VIAL SQ PRN (17:44)
--- NOTE | 2020-03-17 19:45 | NUR ---
RN NOTE RECEIVED PT INTUBATED ON THE VENT AC MODE,FIO2-60%,PEEP-10. SEDATED ON PROPOFOL DRIP. ABLE TO FOLLOW COMMANDS AND OPEN EYES. V/S STABLE,AFEBRILE..BILATERAL SOFT WRIST RESTRAINS ON.NG TUBE FEEDING STARTED ORDERED..F/C DRAINING WITH YELLOW URINE .SUCTION PROVIDED.PATENCY AND PLACEMENT OF NGT ON LEFT NARE VERIFIED WITH AUSCULTATION AND ASPIRATION OF GASTRIC CONTENTS. WILL MONITOR PATIENT. .
--- NOTE | 2020-03-17 20:00 | NUR ---
RN NOTE RT LOWERED FIO2 TO 50%. WILL MONITOR PATIENT TOLERANCE.
--- NOTE | 2020-03-17 20:13 | NUR ---
RT NOTE Pt rec'd orally intubated via ETT #7.5 secured @ 21cm At the lipline. Pt on [facility] vent on AC mode settings as charted. Pt shows no signs of resp distress or sob. Sx'd for thick mod amt of yellow secretions. Alarms are set and audible. Ambu bag is bedside. Vent plugged into red outlet. Will continue to monitor closely Addendum: 03/17/20 at 2013 by WANDER SUAZO RT Amended: Links added.
[2020-03-17] MEDS: LINEZOLID 600 MG TABLET PO SCH (21:11)
[2020-03-17] MEDS ORDERED: INSULIN GLARGINE, 100 UNIT/ML CARTRIDGE SQ SCH (22:00)
[2020-03-17] MEDS: SENNOSIDES 8.6 MG TABLET PO SCH (22:50)
[2020-03-17] MEDS: ATORVASTATIN 40 MG TABLET PO SCH (22:50)
[2020-03-17] MEDS: INSULIN REGULAR, HUMAN 100 UNIT/ML 3 ML VIAL SQ PRN (22:53)
[2020-03-18] VITALS (40 sets, daily range): BP systolic 88–103; BP diastolic 53–68
--- NOTE | 2020-03-18 02:00 | NUR ---
RN NOTE BED BATH AND AM CARE COMPLETED. L NARE NGT PLACEMENT VERIFIED VIA AUSCULTATION AND ASPIRATION OF GASTRIC CONTENTS BEFORE RESUMING TUBE FEEDING AT 25ML/HOUR.
[2020-03-18] MEDS: HYDROCORTISONE SOD SUCCINATE 100 MG/2 ML VIAL IV SCH (04:32)
[2020-03-18] MEDS: PROPOFOL 100 ML IV PRN ×3 (04:50→22:15)
[2020-03-18 05:32] LABS: BASOPHILS % (AUTO) 0.1 % (0.0-2.0); HEMATOCRIT 29 % (39-51); HEMOGLOBIN 9.6 g/dL (13.5-17.5); LYMPHOCYTES # (AUTO) 0.1 /CMM (0.8-4.8); LYMPHOCYTES % (AUTO) 1.6 % (20.0-44.0); MEAN CORPUSCULAR HGB CONC 33 g/dl (31.0-36.0); MEAN CORPUSCULAR VOLUME 93 fL (80-96); MONOCYTES # (AUTO) 0.3 /CMM (0.1-1.30); MONOCYTES % (AUTO) 3.7 % (2.0-12.0); NEUTROPHILS # (AUTO) 8.4 /CMM (1.8-8.9); NEUTROPHILS % (AUTO) 94.6 % (43.0-81.0); PLATELET COUNT (AUTO) 161 /CMM (150-450); RED BLOOD CELL COUNT(AUTO) 3.13 MIL/uL (4.5-6.0); WHITE BLOOD COUNT (AUTO) 8.9 K/uL (4.3-11.0)
[2020-03-18 05:53] LABS: CALCIUM, SERUM 7.9 mg/dL (8.5-10.1); CREATININE 3.2 mg/dL (0.6-1.3); POTASSIUM 3.4 mmol/L (3.5-5.1)
--- NOTE | 2020-03-18 06:03 | NUR ---
RN NOTE SPOKE TO TAOIST (SON) AND UPDATED ON PATIENT'S STATUS.
--- NOTE | 2020-03-18 06:29 | NUR ---
RN NOTE SPOKE TO DR. DIA FROM RADIOLOGY WHO STATES THAT FROM CHEST X-RAY RESULT, THE ET TUBE "IS TOO HIGH AND THAT IT NEEDS TO BE ADVANCED BY 6CM." NOTIFIED RT WANDER WHO STATES THAT HE WILL FOLLOW UP.
[2020-03-18 06:43] LABS: C-REACTIVE PROTEIN 5.5 mg/dL (0.0-0.9)
--- NOTE | 2020-03-18 06:46 | NUR ---
RN NOTE RESPIRATORY AT BEDSIDE ASSESSING PT AND ET TUBE. STAT CHEST X-RAY ORDERED.
--- NOTE | 2020-03-18 06:47 | NUR ---
RN CLOSING NOTE NO ACUTE CHANGES OBSERVED OVERNIGHT. PT INTUBATED ON THE VENT AC MODE, FIO2-50%,PEEP-10. SEDATED ON PROPOFOL DRIP. IV ON BOTH ARM PATENT AND WITHOUT COMPLICATIONS NOTED AT SITES. ABLE TO FOLLOW COMMANDS AND OPEN EYES. VITAL SIGNS STABLE, AFEBRILE.BILATERAL SOFT WRIST RESTRAINS IN PLACE ORDERED. LEFT NARE NGT PLACEMENT VERIFIED VIA AUSCULTATION. HADDAD CATHETER DRAINING CLEAR YELLOW URINE. AWAITING FOLLOW UP STAT CHEST X-RAY. CALL LIGHT WITHIN REACH, SAFETY MEASURES IN PLACE AT ALL TIMES, BED ALARM ON, WILL ENDORSE TO MORNING RN.
--- NOTE | 2020-03-18 07:55 | NUR ---
ICU/RN PT IS INTUBATED ON THE VENT AC MODE.FIO2-50%,PEEP-10.SEDATED ON DIPRIVAN.V/S STABLE ,AFEBRILE .NO PAIN REPORTED AT THIS TIME.LEFT NG TUBE INFUSING GLYTROL AT 25 ML/HR.F/C DRAINING WITH YELLOW URINE.
[2020-03-18] MEDS: BLOOD SUGAR DIAGNOSTIC 1 EACH STRIP VI SCH (08:16)
[2020-03-18] MEDS: MEROPENEM 1 G in IV NS 0.9% 100 ML IV SCH ×2 (08:16→21:46)
[2020-03-18] MEDS: CLOPIDOGREL BISULFATE 75 MG TABLET PO SCH (08:17)
[2020-03-18] MEDS: DEXAMETHASONE SOD PHOSPHATE 10 MG/ML VIAL IV SCH (08:17)
[2020-03-18] MEDS: ASPIRIN 81 MG TAB.CHEW PO SCH (08:17)
[2020-03-18] MEDS: PANTOPRAZOLE 40 MG/PACK PACK GT SCH (08:17)
[2020-03-18] MEDS: LINEZOLID 600 MG TABLET PO SCH ×2 (08:17→21:42)
[2020-03-18] MEDS: BISMUTH SUBSALICYLATE 262 MG/15 ML BOTTLE PO SCH ×4 (08:18→21:42)
[2020-03-18] MEDS: TAMSULOSIN 0.4 MG CAP.SR.24H PO SCH (08:18)
[2020-03-18] MEDS: CARVEDILOL 3.125 MG TABLET PO SCH (08:18)
[2020-03-18] MEDS: ENOXAPARIN SODIUM 60 MG/0.6 ML DISP.SYRIN SQ SCH (08:19)
[2020-03-18] MEDS: Z GUARD REMEDY 2 OZ OINT TP SCH (08:20)
[2020-03-18] MEDS ORDERED: POTASSIUM CHLORIDE 20 MEQ POWDER PACKET NG SCH (08:30)
[2020-03-18] MEDS ORDERED: ALBUTEROL HALF STRENGTH 1.25 MG/3 ML VIAL.NEB NEB PRN (09:00)
--- NOTE | 2020-03-18 09:00 | NUR ---
RT Pt received orally (8.0 ET tube at 21cm at the lip line) intubated on mechanical ventilation. ET tube was advanced 6cm and is now secured at 27cm at the lip line per Dr. Tico orozco. Equal bilateral breathe sounds and chest rise noted. No SOB or respiratory distress noted. Addendum: 03/18/20 at 0927 by FRANK MORA RT Amended: Links added.
[2020-03-18 09:08] LABS: ABG BASE EXCESS 6.4 mmol/L; ABG PCO2 40.2 mmHg (35.0-45.0); ABG PH 7.493 (7.350-7.450); ABG PO2 79.1 mmHg (75.0-100.0); AaDO2 232.2 mmHg; COHb 0.2 % (0.5-1.5); O2Hb 95.8 % (94.0-97.0); PEEP,BG 10 cm H2O; SITE, ABG Right Brachial; VT, ABG 500 mL
--- NOTE | 2020-03-18 09:15 | NUR ---
ICU/RN DUE MEDS ARE GIVEN ORDERED.SEDATION VACATION PROVIDED .PT IS AWAKE,ALERT.FOLLOWS COMMAND .
[2020-03-18] MEDS: BLOOD SUGAR DIAGNOSTIC 1 EACH STRIP IN SCH ×2 (12:02→17:46)
[2020-03-18] MEDS: INSULIN REGULAR, HUMAN 100 UNIT/ML 3 ML VIAL SQ PRN ×2 (12:04→18:54)
[2020-03-18] MEDS: SOD FERRIC GLUC 125 MG in IV NS 0.9% 100 ML IV SCH (14:32)
--- NOTE | 2020-03-18 17:40 | NUR ---
ICU/RN PM CARE PROVIDED.DUE MEDS ARE GIVEN ORDERED.CONTINUE MONITORING.
[2020-03-18] MEDS: GLUCERNA 1.2 1,000 ML BOTTLE NG PRN (17:54)
--- NOTE | 2020-03-18 19:55 | NUR ---
RN OPENING NOTE PT RECEIVE IN BED INTUBATED ON THE VENT , SEDATED ON DIPRIVAN AND PT IS RESPONDING TO TOUCH AND ANSWERING TO QUESTIONS BY HEAD MOVEMENTS.PT HAS LEFT NG TUBE GLUCERNA 1.2 RUNNING AT 30 , TOLERATING WELL, NO RESIDUAL NOTED.PT HAS HADDAD DRAINING YELLOW URINE.
[2020-03-18] MEDS: ATORVASTATIN 40 MG TABLET PO SCH (21:42)
[2020-03-18] MEDS: SENNOSIDES 8.6 MG TABLET PO SCH (22:00)
[2020-03-18] MEDS: INSULIN GLARGINE, 100 UNIT/ML CARTRIDGE SQ SCH (22:12)
--- NOTE | 2020-03-18 22:17 | NUR ---
RN NOTE [place] NON ADMIN, PT HAD LOOSE STOOL TODAY.
[2020-03-19] VITALS (47 sets, daily range): BP systolic 87–120; BP diastolic 47–81
[2020-03-19] MEDS: INSULIN REGULAR, HUMAN 100 UNIT/ML 3 ML VIAL SQ PRN ×4 (00:29→23:37)
[2020-03-19] MEDS: BLOOD SUGAR DIAGNOSTIC 1 EACH STRIP IN SCH ×5 (00:31→23:37)
[2020-03-19] MEDS: GLUCERNA 1.2 1,000 ML BOTTLE NG PRN ×2 (03:24→17:34)
[2020-03-19 05:25] LABS: CALCIUM, SERUM 8.1 mg/dL (8.5-10.1); CREATININE 3.4 mg/dL (0.6-1.3); POTASSIUM 3.5 mmol/L (3.5-5.1)
--- NOTE | 2020-03-19 07:00 | NUR ---
RN NOTES RECEIVED PT ON BED, INTUBATED, SEDATED ON 10 MCG/KG/MIN DIPRIVAN AT THIS TIME, ON TELE HR SB HR IN HIGH 50'S , HADDAD DRINING TO GRAVITY, TF AT 30CC /HR RUNNING VIA L NARE NG TUBE, NGT PLACEMENT VERIFIED , RIGHT UPPER ARM MIDLINE AND L FA IV SITES CLEAN,DRY AND INTACT, SR UP x3, CALL LIGHT WITHIN EASY REACH, BED LOCKED AND IN LOWEST POSITION, WILL CONTINUE TO MONITOR .
--- NOTE | 2020-03-19 07:17 | NUR ---
RN CLOSING NOTE PT REMAINED STABLE DURING MY SHIFT. REPORT GIVEN TO INCOMING SHIFT FOR KELSI.
--- NOTE | 2020-03-19 07:57 | NUR ---
RT PATIENT REC'D ORALLY INTUBATED ON THE [facility] VENT. PER DR CAMACHO PEEP DECREASED TO 5, POST ABG WAS INCREASED BACK TO 10. VENT ALARMS CHECKED + AUDIBLE. AMBU BAG AT HOB. Addendum: 03/19/20 at 1659 by ZAKIA BRITO RT Amended: Links added.
[2020-03-19] MEDS: MEROPENEM 1 G in IV NS 0.9% 100 ML IV SCH ×2 (08:10→21:23)
[2020-03-19] MEDS: LINEZOLID 600 MG TABLET PO SCH (08:10)
[2020-03-19] MEDS: CLOPIDOGREL BISULFATE 75 MG TABLET PO SCH (08:10)
[2020-03-19] MEDS: ASPIRIN 81 MG TAB.CHEW PO SCH (08:10)
[2020-03-19] MEDS: TAMSULOSIN 0.4 MG CAP.SR.24H PO SCH (08:10)
[2020-03-19] MEDS: DEXAMETHASONE SOD PHOSPHATE 10 MG/ML VIAL IV SCH (08:11)
[2020-03-19] MEDS: BISMUTH SUBSALICYLATE 262 MG/15 ML BOTTLE PO SCH ×4 (08:12→21:23)
[2020-03-19] MEDS: PANTOPRAZOLE 40 MG/PACK PACK GT SCH (08:12)
[2020-03-19] MEDS: Z GUARD REMEDY 2 OZ OINT TP SCH (08:13)
[2020-03-19 08:55] LABS: ABG OXYGEN SATURATION 80.2 % (92.0-98.5); ABG PCO2 42.5 mmHg (35.0-45.0); ABG PH 7.457 (7.350-7.450); ABG PO2 44.5 mmHg (75.0-100.0); AaDO2 264.2 mmHg; COHb 0.2 % (0.5-1.5); MetHb 0.1 % (0.0-1.5); SITE, ABG Right Brachial
[2020-03-19] MEDS ORDERED: FUROSEMIDE 40 MG/4 ML VIAL IV ONE (09:00)
[2020-03-19] MEDS: ENOXAPARIN SODIUM 60 MG/0.6 ML DISP.SYRIN SQ SCH (09:08)
--- NOTE | 2020-03-19 09:30 | NUR ---
RN NOTES DR WILLETT AND DR HUITRON NOTIFIED REGARDING ABG RESULTS .
[2020-03-19] MEDS: PROPOFOL 100 ML IV PRN ×2 (12:14→23:14)
--- NOTE | 2020-03-19 14:30 | NUR ---
RN NOTES FERRLECIT IV IS NOT AVAILABLE FROM PHARMACY YET, PHARMACY NOTIFED .
--- NOTE | 2020-03-19 15:40 | NUR ---
RN NOTES FERRLECIT IS NOT AVAILABLE FROM PHARMACY YET , PHARMACY NOITFED .
[2020-03-19] MEDS: SOD FERRIC GLUC 125 MG in IV NS 0.9% 100 ML IV SCH (16:00)
--- NOTE | 2020-03-19 18:26 | NUR ---
RN NOTES PT REMAINS INTUBATED AND CLAM AND COOPERATIVE , ON DIPRIVAN AT 10 MCG/KG/MIN, FOLLOW SIMPLE COMMAND, VSS STABLE , TOLEAING TF AT 50CC/HR WELL, NO RESIDUAL NOTED, SR UP X3, CALL LIGHT WITHIN EASY REACH, BED LOCKED AND IN LOWEST POSITION, WILL ENDORSE TO DIGITAL STRATEGIST NURSE FOR CONTINUITY OF CARE.
--- NOTE | 2020-03-19 19:05 | NUR ---
TRANSMITTER SUPERVISOR NOTE RECEIVED PATIENT IN BED RESTING WITH HOB ELEVATED. FULL CODE, ON ISOLATION FOR POSITIVE COVID AND ESBL IN URINE. PATIENT IS CALM, COOPERATIVE, MILDLY SEDATED. ON DIPRIVAN RUNNING AT 10 MCG/KG/MIN. PATIENT IS VENT DEPENDANT. BREATHING IS EVEN AND UNLABORED. NO SOB NOTED AT THIS TIME. EET TUBE IS AT 27 ON LIP LEVEL. IV SITE ON KADE MIDLINE, RFA GAUGE 20, AND LFA GAUGE 20 ARE ALL CLEAN, DRY, AND PATENT. SKIN IS DRY, WARM TO TOUCH, AND INTACT. CAPILLARY REFILL IS < 3 SECONDS. PATIENT IS ON HADDAD CATH, URINE IS CLEAR AND YELLOW IN COLOR. PATIENT IS ON GT FEEDING GLUCERNA 1.2 RUNNING AT 50 ML/HR WITH 100 ML RESIDUAL NOTED. PATIENT IS IN NO APPARENT DISTRESS NOTED. BED ALARM TURNED ON. BED IS IN LOWEST POSITION. WILL CONTINUE TO MONITOR.
[2020-03-19] MEDS: SENNOSIDES 8.6 MG TABLET PO SCH (21:24)
[2020-03-19] MEDS: INSULIN GLARGINE, 100 UNIT/ML CARTRIDGE SQ SCH (21:43)
--- NOTE | 2020-03-19 23:45 | NUR ---
FLASHER ADJUSTER NOTE NOTED PATIENT WITH 1 LARGE BM AROUND THIS TIME. PATIENT IS CLEANED AND REPOSITIONED. WILL CONTINUE TO MONITOR.
[2020-03-20] VITALS (46 sets, daily range): BP systolic 98–115; BP diastolic 51–76
[2020-03-20] MEDS: PROPOFOL 100 ML IV PRN ×3 (04:03→22:32)
[2020-03-20 04:56] LABS: EOSINOPHILS % (AUTO) 0.1 % (0.0-6.0); HEMATOCRIT 33 % (39-51); HEMOGLOBIN 10.6 g/dL (13.5-17.5); LYMPHOCYTES # (AUTO) 0.3 /CMM (0.8-4.8); LYMPHOCYTES % (AUTO) 2.1 % (20.0-44.0); MEAN CORPUSCULAR HGB CONC 32 g/dl (31.0-36.0); MEAN CORPUSCULAR VOLUME 94 fL (80-96); MONOCYTES # (AUTO) 0.4 /CMM (0.1-1.30); MONOCYTES % (AUTO) 3.2 % (2.0-12.0); NEUTROPHILS # (AUTO) 12.3 /CMM (1.8-8.9); NEUTROPHILS % (AUTO) 94.6 % (43.0-81.0); PLATELET COUNT (AUTO) 143 /CMM (150-450); RED BLOOD CELL COUNT(AUTO) 3.51 MIL/uL (4.5-6.0)
[2020-03-20 05:09] LABS: CALCIUM, SERUM 7.9 mg/dL (8.5-10.1); CREATININE 3.4 mg/dL (0.6-1.3); POTASSIUM 3.6 mmol/L (3.5-5.1)
[2020-03-20] MEDS: BLOOD SUGAR DIAGNOSTIC 1 EACH STRIP IN SCH ×3 (06:15→18:08)
[2020-03-20] MEDS: INSULIN REGULAR, HUMAN 100 UNIT/ML 3 ML VIAL SQ PRN ×3 (06:16→18:08)
--- NOTE | 2020-03-20 06:56 | NUR ---
WET CROWN BLOCKING OPERATOR NOTE PATIENT REMAINED STABLE THROUGHOUT THE NIGHT. NO SIGNIFICANT CHANGES NOTED. ALL DUE MEDS GIVEN AND TOLERATED WELL. REPOSITIONED Q2H. TITRATED DIPRIVAN PER PROTOCOL. GTF GLUCERNA RUNNING AT 50 ML/HR. ALL NEEDS ATTENDED AND MET. ENDORSED TO AM SHIFT JAYASHREE FOR CONTINUATION OF CARE.
--- NOTE | 2020-03-20 07:00 | NUR ---
RN NOTES RECEIVED PT ON BED, INTUBATED, SEDATED ON 20 MCG/KG/MIN DIPRIVAN AT THIS TIME, ON TELE HR SB , IN HIGH 50'S , HADDAD DRINING TO GRAVITY, TF AT 50CC /HR RUNNING VIA L NARE NG TUBE, NGT PLACEMENT VERIFIED , RIGHT UPPER ARM MIDLINE AND L FA IV SITES CLEAN,DRY AND INTACT, SR UP x3, CALL LIGHT WITHIN EASY REACH, BED LOCKED AND IN LOWEST POSITION, WILL CONTINUE TO MONITOR .
--- NOTE | 2020-03-20 07:30 | NUR ---
RT Pt received orally intubated on mechanical ventilation with noted settings. Vent is plugged into red outlet with BVM by bedside. BUSINESS CONTINUITY PLANNER cuff pressure noted. No SOB or respiratory distress noted. Addendum: 03/20/20 at 1624 by FRANK MORA RT Amended: Links added.
[2020-03-20] MEDS: MEROPENEM 1 G in IV NS 0.9% 100 ML IV SCH ×2 (08:24→20:11)
[2020-03-20] MEDS: PANTOPRAZOLE 40 MG/PACK PACK GT SCH (08:26)
[2020-03-20] MEDS: TAMSULOSIN 0.4 MG CAP.SR.24H PO SCH (08:26)
[2020-03-20] MEDS: DEXAMETHASONE SOD PHOSPHATE 10 MG/ML VIAL IV SCH (08:26)
[2020-03-20] MEDS: ASPIRIN 81 MG TAB.CHEW PO SCH (08:26)
[2020-03-20] MEDS: CLOPIDOGREL BISULFATE 75 MG TABLET PO SCH (08:26)
[2020-03-20] MEDS: Z GUARD REMEDY 2 OZ OINT TP SCH (08:27)
[2020-03-20] MEDS: BISMUTH SUBSALICYLATE 262 MG/15 ML BOTTLE PO SCH ×4 (08:31→20:12)
[2020-03-20 09:09] LABS: ABG BASE EXCESS 4.5 mmol/L; ABG OXYGEN SATURATION 96.3 % (92.0-98.5); ABG PCO2 48.4 mmHg (35.0-45.0); ABG PH 7.409 (7.350-7.450); ABG PO2 87.5 mmHg (75.0-100.0); AaDO2 214.6 mmHg; COHb 0.1 % (0.5-1.5); MetHb 0.1 % (0.0-1.5); O2Hb 96.1 % (94.0-97.0); PEEP,BG 10 cm H2O; SITE, ABG Right Brachial; VT, ABG 500 mL
--- NOTE | 2020-03-20 10:10 | NUR ---
RN NOTES DR WILLETT AND DR JOSHI NOTIFED REGARDING [id number] , OK TO GIVE LOVENOX PER DR JOSHI , CONTINUE TO MONITOR .
[2020-03-20] MEDS: ENOXAPARIN SODIUM 60 MG/0.6 ML DISP.SYRIN SQ SCH (10:13)
[2020-03-20] MEDS: GLUCERNA 1.2 1,000 ML BOTTLE NG PRN (10:30)
--- NOTE | 2020-03-20 14:00 | NUR ---
RN NOTES VSS STABLE, CONTINUE TO MONITOR .
[2020-03-20] MEDS: SOD FERRIC GLUC 125 MG in IV NS 0.9% 100 ML IV SCH (14:46)
--- NOTE | 2020-03-20 18:32 | NUR ---
RN NOTES PATIENT REMAINED STABLE THROUGHOUT THE SHIFT. NO SIGNIFICANT CHANGES NOTED. ALL DUE MEDS GIVEN AND TOLERATED WELL. REPOSITIONED Q2H. TITRATED DIPRIVAN PER PROTOCOL. GTF GLUCERNA RUNNING AT 50 ML/HR. ALL NEEDS ATTENDED AND MET. ENDORSED TO PM SHIFT FOR CONTINUITY OF CARE.
--- NOTE | 2020-03-20 19:30 | NUR ---
TEMPORARY OFFICE ASSISTANT INTIAL SHIFT NOTES RECEIVED PATIENT IN BED, EYES CLOSED, ORALLY INTUBATED AND SEDATED ON DIPRIVAN DRIP, ON MECHANICAL VENTILATION AT PRESCRIBED SETTINGS, TOLERATING WELL. PATIENT WAKES TO TACTILE STIMULI, ABLE TO FOLLOW BASIC COMMANDS, NOT IN DISTRESS, ABLE TO GO BACK TO SLEEP WHEN LEFT ALONE. HADDAD CATHETER DRAINING CLOUDY YELLOW URINE VIA GRAVITY. KADE MIDLINE INFUSING DIPRIVAN, CURRENTLY @ 10 MCG/KG/MIN. ISOLATION PRECAUTIONS OBSERVED FOR COVID-19. WILL MONITOR CLOSELY
[2020-03-20] MEDS: SENNOSIDES 8.6 MG TABLET PO SCH (22:32)
[2020-03-20] MEDS: INSULIN GLARGINE, 100 UNIT/ML CARTRIDGE SQ SCH (23:10)
[2020-03-21] VITALS (31 sets, daily range): BP systolic 92–144; BP diastolic 58–88
[2020-03-21] MEDS: BLOOD SUGAR DIAGNOSTIC 1 EACH STRIP IN SCH ×5 (01:00→23:32)
[2020-03-21] MEDS: INSULIN REGULAR, HUMAN 100 UNIT/ML 3 ML VIAL SQ PRN ×3 (01:02→23:35)
--- NOTE | 2020-03-21 04:00 | NUR ---
ASH PIT WORKER NOTES FULL BED BATH RENDERED, PATIENT NOTED WITH LARGE BM X1, PARTIALLY LIQUID, BUT MOSTLY SOFT FORMED IN CONSISTENCY. TO;ERATED BED BATH WELL, WILL CONTINUE MONITORING
[2020-03-21 04:34] LABS: BASOPHILS % (AUTO) 0.2 % (0.0-2.0); EOSINOPHILS % (AUTO) 0.1 % (0.0-6.0); HEMATOCRIT 31 % (39-51); LYMPHOCYTES # (AUTO) 0.2 /CMM (0.8-4.8); LYMPHOCYTES % (AUTO) 1.6 % (20.0-44.0); MEAN CORPUSCULAR HGB CONC 33 g/dl (31.0-36.0); MEAN CORPUSCULAR VOLUME 93 fL (80-96); MONOCYTES # (AUTO) 0.3 /CMM (0.1-1.30); MONOCYTES % (AUTO) 2.6 % (2.0-12.0); NEUTROPHILS # (AUTO) 12.8 /CMM (1.8-8.9); NEUTROPHILS % (AUTO) 95.5 % (43.0-81.0); PLATELET COUNT (AUTO) 124 /CMM (150-450); RED BLOOD CELL COUNT(AUTO) 3.27 MIL/uL (4.5-6.0); WHITE BLOOD COUNT (AUTO) 13.4 K/uL (4.3-11.0)
[2020-03-21 04:59] LABS: ALBUMIN 2.4 g/dL (3.4-5.0); BILIRUBIN,TOTAL 0.4 mg/dL (0.2-1.0); CALCIUM, SERUM 7.9 mg/dL (8.5-10.1); CREATININE 3.1 mg/dL (0.6-1.3); PHOSPHORUS 4.3 mg/dL (2.5-4.9); POTASSIUM 3.9 mmol/L (3.5-5.1); TOTAL PROTEIN, SERUM 5.7 g/dL (6.4-8.2)
--- NOTE | 2020-03-21 07:00 | NUR ---
HAND BRUSH FILLER CLOSING NOTES PATIENT RESTING IN BED, REMAINS ORALLLY INTUBATED ON MECHANICA VENTILATION. NO ACUTE EVENTS NOTED THROUGHOUT SHIFT, WILL ENDORSE THE PATIENT TO THE AM SHIFT NURSE FOR KELSI
--- NOTE | 2020-03-21 07:39 | NUR ---
RT PATIENT REC'D ORALLY INTUBATED ON [facility] VENT WITH ORDERED SETTINGS JUNG WELL. FIO2 TITRATED TO 50%. PEEP OF 8. VENT ALARMS CHECKED + AUDIBLE. VENT PLUGGED ONTO RED OUTLET. ALL SAFETY MEASURES CHECKED. AMBU BAG AT [facility]. Addendum: 03/21/20 at 1633 by ZAKIA BRITO RT Amended: Links added.
--- NOTE | 2020-03-21 08:00 | NUR ---
RN OPENING NOTE: RECEIVED PATIENT IN BED THIS MORNING. PATIENT IS INTUBATED, TOLERATING SETTINGS WELL, SATING WELL. OPENS EYES TO VOICE AND FOLLOWS COMMANDS. NO SIGNS OF ACUTE DISTRESS NOTED AT THIS TIME. SR IN THE 60S ON THE BEDSIDE MONITOR. HADDAD DRAINING URINE. L NARE NGT, RESIDUAL NOTED, ON TF. IV SITES CHECKED, C/D/I, FLUSHING WELL, NO SIGNS OF COMPLICATIONS NOTED. SAFETY MEASURES IMPLEMENTED, BED IN LOWEST POSITION, LOCKED, SIDE RAILS UP, CALL LIGHT WITHIN REACH. WILL CONTINUE TO MONITOR PATIENT FOR CHANGES.
[2020-03-21 08:41] LABS: ABG BASE EXCESS 5.6 mmol/L; ABG OXYGEN SATURATION 91.8 % (92.0-98.5); ABG PCO2 46.8 mmHg (35.0-45.0); ABG PH 7.433 (7.350-7.450); ABG PO2 62.3 mmHg (75.0-100.0); AaDO2 241.6 mmHg; COHb 0.9 % (0.5-1.5); MetHb 0.3 % (0.0-1.5); O2Hb 90.7 % (94.0-97.0); SITE, ABG Right Radial; VENT MODE, BG AC 16 500 50% +5
[2020-03-21] MEDS: TAMSULOSIN 0.4 MG CAP.SR.24H PO SCH (09:26)
[2020-03-21] MEDS: MEROPENEM 1 G in IV NS 0.9% 100 ML IV SCH ×2 (09:26→20:30)
[2020-03-21] MEDS: ASPIRIN 81 MG TAB.CHEW PO SCH (09:26)
[2020-03-21] MEDS: CLOPIDOGREL BISULFATE 75 MG TABLET PO SCH (09:26)
[2020-03-21] MEDS: PANTOPRAZOLE 40 MG/PACK PACK GT SCH (09:27)
[2020-03-21] MEDS: DEXAMETHASONE SOD PHOSPHATE 10 MG/ML VIAL IV SCH (09:27)
[2020-03-21] MEDS: BISMUTH SUBSALICYLATE 262 MG/15 ML BOTTLE PO SCH ×4 (09:27→20:31)
[2020-03-21] MEDS: Z GUARD REMEDY 2 OZ OINT TP SCH (09:28)
[2020-03-21] MEDS ORDERED: ENOXAPARIN SODIUM 60 MG/0.6 ML DISP.SYRIN SQ SCH (10:00)
[2020-03-21] MEDS: GLUCERNA 1.2 1,000 ML BOTTLE NG PRN (17:20)
[2020-03-21] MEDS: PROPOFOL 100 ML IV PRN (17:30)
--- NOTE | 2020-03-21 18:50 | NUR ---
RN CLOSING NOTE: PATIENT REMAINS IN BED. NO SIGNS OF ACUTE DISTRESS NOTED AT THIS TIME. SR IN THE 80S NOTED ON BEDSIDE MONITOR. SAFETY MEASURES IMPLEMENTED, BED IN LOWEST POSITION, LOCKED, SIDE RAILS UP, CALL LIGHT WITHIN REACH. WILL ENDORSE TO ONCOMING SHIFT RN FOR CONTINUITY OF CARE.
--- NOTE | 2020-03-21 19:20 | NUR ---
RN OPENING NOTES RECEIVED PT ON BED, ON ETT/VENT SETTING ORDERED, SPO2 98% ON 10 MCG/KG/MIN DIPRIVAN AT THIS TIME,PT IS AWAKE AND ABLE TO FOLLOW COMMAND COOPERATIVE AND CALM, ON TELE HR SB HR IN HIGH 60'S , HADDAD DRAINING TO GRAVITY, NGTF AT 50CC /HR RUNNING VIA L NARES NG TUBE, NGT PLACEMENT VERIFIED , PATENT AND ON PLACED RESIDUAL WAS CHECKED 0 RESIDUAL RIGHT UPPER ARM MIDLINE AND L FA IV SITES CLEAN,DRY,INTACT, AND FLUSHED, DROPLET ISOLATION MAINTAINED FOR COVID (+) CALL LIGHT WITHIN REACH, BED LOCKED AND IN LOWEST POSITION, WILL CONTINUE TO MONITOR .
[2020-03-21] MEDS: HEPARIN SODIUM, PORCINE 5000 UNITS/1 ML VIAL SQ SCH (20:32)
--- NOTE | 2020-03-21 21:12 | NUR ---
RECEIVED PT INTUBATED 7.5 ETT @27CM AT THE LIP. NO RESP DISTRESS. PT IS AWAKE AND ALERT. TOLERATING SETTINGS. SX'D SMALL AMT OF THICK WHITE SECRETIONS. VENT ALARMS SET AND AUDIBLE. AMBU BAG AT BEDSIDE. CONTINUE [facility] VENT SUPPORT. Addendum: 03/21/20 at 2114 by JOSE ARMANDO WEBBER RT Amended: Links added.
[2020-03-21] MEDS: INSULIN GLARGINE, 100 UNIT/ML CARTRIDGE SQ SCH (21:22)
[2020-03-21] MEDS: SENNOSIDES 8.6 MG TABLET PO SCH (21:22)
[2020-03-22] VITALS (25 sets, daily range): BP systolic 94–115; BP diastolic 59–74
[2020-03-22 04:38] LABS: EOSINOPHILS % (AUTO) 0.2 % (0.0-6.0); HEMATOCRIT 30 % (39-51); HEMOGLOBIN 9.8 g/dL (13.5-17.5); LYMPHOCYTES # (AUTO) 0.2 /CMM (0.8-4.8); LYMPHOCYTES % (AUTO) 1.7 % (20.0-44.0); MEAN CORPUSCULAR HGB CONC 32 g/dl (31.0-36.0); MEAN CORPUSCULAR VOLUME 93 fL (80-96); MONOCYTES # (AUTO) 0.4 /CMM (0.1-1.30); MONOCYTES % (AUTO) 2.6 % (2.0-12.0); NEUTROPHILS # (AUTO) 13.3 /CMM (1.8-8.9); NEUTROPHILS % (AUTO) 95.5 % (43.0-81.0); PLATELET COUNT (AUTO) 118 /CMM (150-450); RED BLOOD CELL COUNT(AUTO) 3.27 MIL/uL (4.5-6.0); WHITE BLOOD COUNT (AUTO) 13.9 K/uL (4.3-11.0)
[2020-03-22] MEDS: PROPOFOL 100 ML IV PRN ×2 (05:02→18:03)
[2020-03-22] MEDS: IV NS 0.9% 250 ML IV PRN (05:02)
[2020-03-22] MEDS: Z GUARD REMEDY 2 OZ OINT TP PRN (05:03)
[2020-03-22 05:07] LABS: ALBUMIN 2.3 g/dL (3.4-5.0); BILIRUBIN,TOTAL 0.4 mg/dL (0.2-1.0); CREATININE 3.1 mg/dL (0.6-1.3); MAGNESIUM 3.2 mg/dL (1.8-2.4); PHOSPHORUS 3.9 mg/dL (2.5-4.9); POTASSIUM 4.3 mmol/L (3.5-5.1); TOTAL PROTEIN, SERUM 5.6 g/dL (6.4-8.2)
[2020-03-22] MEDS: BLOOD SUGAR DIAGNOSTIC 1 EACH STRIP IN SCH ×4 (05:29→23:16)
[2020-03-22] MEDS: INSULIN REGULAR, HUMAN 100 UNIT/ML 3 ML VIAL SQ PRN ×4 (05:30→23:16)
--- NOTE | 2020-03-22 06:51 | NUR ---
RN CLOSING NOTES PT ON BED ASLEEP WAKE UP EASILY NO SIGN AND SYMPTOMS OF RESPIRATORY DISTRESS,SPO2 98%, NO SIGNIFICANT CHANGES ON CONDITION NOTED ALL NEEDS ATTENDED NGTUBE STILL ON PLACE AND VERIFIED, BEDSIDE MONITOR READS SINUS RHYTHM 70'S STILL ON DROPLET ISOLATION FOR COVID 19 (+), SAFETY MEASURE MAINTAINED BED ON LOWEST POSITION AND LOCKED CALL LIGHT WITHIN REACH WILL ENDORSED TO AM SHIFT NURSE
[2020-03-22] MEDS: ASPIRIN 81 MG TAB.CHEW PO SCH (08:06)
[2020-03-22] MEDS: DEXAMETHASONE SOD PHOSPHATE 10 MG/ML VIAL IV SCH (08:07)
[2020-03-22] MEDS: HEPARIN SODIUM, PORCINE 5000 UNITS/1 ML VIAL SQ SCH ×2 (08:08→20:18)
[2020-03-22] MEDS: BISMUTH SUBSALICYLATE 262 MG/15 ML BOTTLE PO SCH ×4 (08:11→20:17)
[2020-03-22] MEDS: PANTOPRAZOLE 40 MG/PACK PACK GT SCH (08:11)
[2020-03-22] MEDS: TAMSULOSIN 0.4 MG CAP.SR.24H PO SCH (08:11)
[2020-03-22] MEDS: CLOPIDOGREL BISULFATE 75 MG TABLET PO SCH (08:11)
[2020-03-22] MEDS: MEROPENEM 1 G in IV NS 0.9% 100 ML IV SCH ×2 (08:12→20:17)
[2020-03-22] MEDS: Z GUARD REMEDY 2 OZ OINT TP SCH (08:12)
--- NOTE | 2020-03-22 08:16 | NUR ---
RT RECEIVED PT INTUBATED 7.5 ETT @27CM AT THE LIP. RESEARCH AGRICULTURAL ENGINEER DONE AND ETT IS SECURE WITH ANCHOR FAST. NO RESP DISTRESS, TOLERATING VENT SETTINGS. SX'D SMALL AMT OF THICK YELLOW SECRETIONS. VENT IS PLUGGED IN RED OUTLET. VENT ALARMS SET AND AUDIBLE. AMBU BAG AT BEDSIDE. CONTINUE [facility] VENT SUPPORT
[2020-03-22] MEDS ORDERED: FUROSEMIDE 100 MG/10 ML VIAL IV ONE (09:00)
[2020-03-22 09:09] LABS: ABG BASE EXCESS 7.9 mmol/L; ABG OXYGEN SATURATION 88.8 % (92.0-98.5); ABG PCO2 48.5 mmHg (35.0-45.0); ABG PO2 57.8 mmHg (75.0-100.0); AaDO2 244.1 mmHg; MetHb 0.1 % (0.0-1.5); O2Hb 88.7 % (94.0-97.0); SITE, ABG Right Brachial; VENT MODE, BG AC 16 500 +8 50%
[2020-03-22] MEDS: GLUCERNA 1.2 1,000 ML BOTTLE NG PRN (14:44)
--- NOTE | 2020-03-22 16:26 | NUR ---
SPUTUM CULTURE COLLECTED, CONTACTED LAB, AWAITING PARARESCUE MANAGER.
--- NOTE | 2020-03-22 18:43 | NUR ---
SPOKE TO PATIENT'S SON RESTORATIONIST. PER SON, PATIENT LIKES TO WATCH BASEBALL AND SOCCER, IF POSSIBLE WHEN IN ROOM, SPORTS CHANNELS ARE RECOMMENDED. ALSO, PATIENT IS ABLE TO RESPOND TO QUESTIONS BY NODDING HIS HEAD AND USING HAND GESTURES.
--- NOTE | 2020-03-22 18:45 | NUR ---
RN CLOSING NOTE: PATIENT REMAINS IN BED. NO SIGNS OF ACUTE DISTRESS NOTED AT THIS TIME. SR IN THE 70S NOTED ON BEDSIDE MONITOR. SAFETY MEASURES IMPLEMENTED, BED IN LOWEST POSITION, LOCKED, SIDE RAILS UP, CALL LIGHT WITHIN REACH. WILL ENDORSE TO ONCOMING SHIFT RN FOR CONTINUITY OF CARE.
--- NOTE | 2020-03-22 19:10 | NUR ---
RN OPENING NOTES RECEIVED PT ON BED, ON ETT/VENT SETTING ORDERED, SPO2 99% ON 10 MCG/KG/MIN DIPRIVAN AT THIS TIME,PT IS AWAKE AND ABLE TO FOLLOW COMMAND COOPERATIVE AND CALM, ON TELE HR SB HR IN HIGH 60'S , HADDAD DRAINING TO GRAVITY, NGTF AT 50CC /HR RUNNING VIA L NARES NG TUBE, NGT PLACEMENT VERIFIED , PATENT AND ON PLACED RESIDUAL WAS CHECKED 0 RESIDUAL RIGHT UPPER ARM MIDLINE AND L FA IV SITES CLEAN,DRY,INTACT, AND FLUSHED, DROPLET ISOLATION MAINTAINED FOR COVID (+) CALL LIGHT WITHIN REACH, BED LOCKED AND IN LOWEST POSITION, WILL CONTINUE TO MONITOR
[2020-03-22] MEDS: SENNOSIDES 8.6 MG TABLET PO SCH (21:27)
[2020-03-22] MEDS: INSULIN GLARGINE, 100 UNIT/ML CARTRIDGE SQ SCH (21:28)
--- NOTE | 2020-03-22 21:33 | NUR ---
RT NOTE PT RECEIVED INTUBATED WITH 7.5 ET TUBE @ 27 CM. AMBU BAG @ HOB. SX DONE, ET TUBE SECURED VIA ANCHOR FAST AND IS PATENT. VENT PLUGGED TO RED OUTLET. ALARMS ON AND AUDIBLE. NO DISTRESS NOTED AT THIS TIME. WILL CONTINUE TO MONITOR. Addendum: 03/22/20 at 2134 by SALOMÓN WEST RT Amended: Links added.
[2020-03-23] VITALS (24 sets, daily range): BP systolic 94–116; BP diastolic 59–74
--- NOTE | 2020-03-23 02:23 | NUR ---
RN NOTES PT COMFORTABLY SLEEPING ON BED STILL ON ETT/VENT SETTING ORDERED SPO2 99% WILL CONT TO MONITOR
[2020-03-23 04:36] LABS: EOSINOPHILS % (AUTO) 0.1 % (0.0-6.0); HEMATOCRIT 28 % (39-51); LYMPHOCYTES # (AUTO) 0.3 /CMM (0.8-4.8); LYMPHOCYTES % (AUTO) 1.9 % (20.0-44.0); MEAN CORPUSCULAR HGB CONC 32 g/dl (31.0-36.0); MEAN CORPUSCULAR VOLUME 93 fL (80-96); MONOCYTES # (AUTO) 0.5 /CMM (0.1-1.30); NEUTROPHILS # (AUTO) 14.4 /CMM (1.8-8.9); PLATELET COUNT (AUTO) 92 /CMM (150-450); RED BLOOD CELL COUNT(AUTO) 3.01 MIL/uL (4.5-6.0); WHITE BLOOD COUNT (AUTO) 15.2 K/uL (4.3-11.0)
[2020-03-23] MEDS: Z GUARD REMEDY 2 OZ OINT TP PRN (04:39)
[2020-03-23 05:17] LABS: ALBUMIN 2.2 g/dL (3.4-5.0); BILIRUBIN,TOTAL 0.4 mg/dL (0.2-1.0); CALCIUM, SERUM 7.9 mg/dL (8.5-10.1); CREATININE 2.8 mg/dL (0.6-1.3); MAGNESIUM 3.1 mg/dL (1.8-2.4); PHOSPHORUS 3.2 mg/dL (2.5-4.9); POTASSIUM 4.4 mmol/L (3.5-5.1); TOTAL PROTEIN, SERUM 5.3 g/dL (6.4-8.2)
[2020-03-23] MEDS: PROPOFOL 100 ML IV PRN ×2 (05:33→16:30)
[2020-03-23 05:47] LABS: LYMPHOCYTES % (MANUAL) 44 % (16-48); NEUTROPHILS % (MANUAL) 90 (42-76)
[2020-03-23] MEDS: BLOOD SUGAR DIAGNOSTIC 1 EACH STRIP IN SCH ×3 (06:22→18:07)
[2020-03-23] MEDS: INSULIN REGULAR, HUMAN 100 UNIT/ML 3 ML VIAL SQ PRN ×2 (06:23→18:08)
[2020-03-23] MEDS: IV NS 0.9% 250 ML IV PRN (06:43)
--- NOTE | 2020-03-23 07:15 | NUR ---
PUMP ROOM OPERATOR NOTES RECEIVED PATIENT MILDLY SEDATED , ABLE TO FOLLOW COMMANDS , NOT IN ACUTE DISTRESS, DENIES SOB AND DISCOMFORT AT THIS TIME , TOLERATING CURRENT VENT SETTINGS WITH SPO2 OF 100% , ETT /7.[address] , SR 72 ON BEDSIDE MONITOR , NGT IN PLACE WITH GLUCERNA @ 50ML/HR WITH 5ML RESIDUALS , FC DRAINING VIA GRAVITY , KADE MIDLINE WITH DIPRIVAN @ 10MCG/KG/MIN AND NS @ TKO ,ALL NEEDS ATTENDED ,WILL CONTINUE TO MONITOR .
--- NOTE | 2020-03-23 08:05 | NUR ---
SHINGLES ROOFER HELPER NOTES JACOBO HELD FOR SEDATION VACATION , PT AOX1 , ABLE TO FOLLOW COMMANDS , WILL CONTINUE TO MONITOR
[2020-03-23] MEDS: MEROPENEM 1 G in IV NS 0.9% 100 ML IV SCH ×2 (08:13→20:10)
[2020-03-23] MEDS: CLOPIDOGREL BISULFATE 75 MG TABLET PO SCH (08:14)
[2020-03-23] MEDS: PANTOPRAZOLE 40 MG/PACK PACK GT SCH (08:14)
[2020-03-23] MEDS: TAMSULOSIN 0.4 MG CAP.SR.24H PO SCH (08:14)
[2020-03-23] MEDS: DEXAMETHASONE SOD PHOSPHATE 10 MG/ML VIAL IV SCH (08:14)
[2020-03-23] MEDS: HEPARIN SODIUM, PORCINE 5000 UNITS/1 ML VIAL SQ SCH ×2 (08:15→08:57)
[2020-03-23] MEDS: ASPIRIN 81 MG TAB.CHEW PO SCH (08:15)
[2020-03-23] MEDS: Z GUARD REMEDY 2 OZ OINT TP SCH (08:15)
[2020-03-23] MEDS: BISMUTH SUBSALICYLATE 262 MG/15 ML BOTTLE PO SCH ×4 (08:15→20:19)
--- NOTE | 2020-03-23 08:15 | NUR ---
RT PATIENT REC'D ORALLY INTUBATED ON [facility] VENT WITH ORDERED SETTINGS JUNG WELL. FIO2 CURRENTLY ON 50%. PEEP OF 8. VENT ALARMS CHECKED + AUDIBLE. ETT SECURE AND IN PROPER POSITION. CUFF CHECKED SQUAD SERGEANT. VENT PLUGGED ONTO RED OUTLET. ALL SAFETY MEASURES CHECKED. AMBU BAG AT [facility]. Addendum: 03/23/20 at 0816 by ZAKIA BRITO RT Amended: Links added.
[2020-03-23] MEDS: GLUCERNA 1.2 1,000 ML BOTTLE NG PRN (08:21)
[2020-03-23] MEDS: FUROSEMIDE 20 MG/2 ML VIAL IV SCH ×2 (09:03→16:23)
--- NOTE | 2020-03-23 09:30 | NUR ---
BELLING MACHINE OPERATOR NOTES SEEN AND EVALUATED BY DR WILLETT , DISCUSSED LABS , CHEST XRAY , CURRENT VENT SETTINGS AND VITAL SIGNS , PT AFEBRILE , TOLERATING GT FEEDING WITH GOOD URINE OUTPUT , PT IS AOX1 ABLE TO FOLLOW COMMANDS , CURRENTLY OFF SEDATION , HEPARIN HELD PLATELETS IF 92 , PER MD OK TO HOLD HEPARIN AND OK TO GIVE PLAVIX ORDERED ,
--- NOTE | 2020-03-23 09:57 | NUR ---
HYDROPULPER OPERATOR NOTES SEEN AND EVALUATED BYTricia JOSHI ,DISCUSSED LABS , CHEST XRAY AND CURRENT VENT SETTINGS WITH SPO2 OF 98-100% , PT IS OFF SEDATION , AOX1 ABLE TO FOLLOW COMMANDS , NO DISTRESS NOTED , VITALS SIGNS STABLE , AFEBRILE , MD AWARE
--- NOTE | 2020-03-23 16:31 | NUR ---
ACUTE DIALYSIS REGISTERED NURSE NOTES JACOBO RESTARTED PT NOTED BREATHING OVER THE VENT @ 30-32CPM ,
--- NOTE | 2020-03-23 19:30 | NUR ---
FLASK FITTER OPENING NOTES RECEIVED PATIENT SEDATED, PATIENT IS AWAKE AND ABLE TO FOLLOW COMMANDS RESPONSES TO YES/NO QUESTIONS, NO SOB OR ACUTE DISTRESS NOTED AT THIS TIME, TOLERATING CURRENT VENT SETTINGS WITH SPO2 OF 98%, ETT /7.5/ IN PLACE, SR 72 ON BEDSIDE MONITOR, NGT IN PLACE WITH GLUCERNA @ 50ML/HR WITH NO RESIDUALS, BILATERAL UPPER SOFT WRIST RESTRAINTS IN PLACE FOR SAFETY. FC DRAINING CLEAR/YELLOW URINE VIA GRAVITY, KADE MIDLINE WITH DIPRIVAN @ 10MCG/KG/MIN AND NS@ TKO, BED IN LOW/LOCKED POSITION, CALL LIGHT WITHIN REACH WILL CONTINUE TO MONITOR .
[2020-03-23] MEDS: SENNOSIDES 8.6 MG TABLET PO SCH (22:08)
[2020-03-23] MEDS: INSULIN GLARGINE, 100 UNIT/ML CARTRIDGE SQ SCH (22:57)
[2020-03-24] VITALS (24 sets, daily range): BP systolic 91–121; BP diastolic 55–82
[2020-03-24] MEDS: BLOOD SUGAR DIAGNOSTIC 1 EACH STRIP IN SCH ×4 (00:15→18:08)
[2020-03-24] MEDS: INSULIN REGULAR, HUMAN 100 UNIT/ML 3 ML VIAL SQ PRN ×2 (00:17→12:33)
[2020-03-24 05:12] LABS: BASOPHILS % (AUTO) 0.1 % (0.0-2.0); EOSINOPHILS % (AUTO) 0.1 % (0.0-6.0); HEMATOCRIT 27 % (39-51); HEMOGLOBIN 8.6 g/dL (13.5-17.5); LYMPHOCYTES # (AUTO) 0.4 /CMM (0.8-4.8); LYMPHOCYTES % (AUTO) 2.6 % (20.0-44.0); MEAN CORPUSCULAR HGB CONC 32 g/dl (31.0-36.0); MEAN CORPUSCULAR VOLUME 93 fL (80-96); MONOCYTES # (AUTO) 0.6 /CMM (0.1-1.30); MONOCYTES % (AUTO) 4.2 % (2.0-12.0); NEUTROPHILS # (AUTO) 13.7 /CMM (1.8-8.9); RED BLOOD CELL COUNT(AUTO) 2.86 MIL/uL (4.5-6.0); WHITE BLOOD COUNT (AUTO) 14.7 K/uL (4.3-11.0)
[2020-03-24 05:45] LABS: CALCIUM, SERUM 8.4 mg/dL (8.5-10.1); CREATININE 2.7 mg/dL (0.6-1.3); PLATELET COUNT (AUTO) 77 /CMM (150-450); POTASSIUM 4.3 mmol/L (3.5-5.1)
--- NOTE | 2020-03-24 07:10 | NUR ---
STRAIGHTENER NOTES RECEIVED PATIENT MILDLY SEDATED , ABLE TO FOLLOW COMMANDS , NOT IN ACUTE DISTRESS, DENIES SOB AND DISCOMFORT AT THIS TIME , TOLERATING CURRENT VENT SETTINGS WITH SPO2 OF 100% , ETT /7.[address] , SR 70 ON BEDSIDE MONITOR , NGT IN PLACE WITH GLUCERNA @ 50ML/HR WITH 5ML RESIDUALS , FC DRAINING VIA GRAVITY , KADE MIDLINE WITH DIPRIVAN @ 10MCG/KG/MIN AND NS @ TKO ,ALL NEEDS ATTENDED ,WILL CONTINUE TO MONITOR .
--- NOTE | 2020-03-24 07:15 | NUR ---
IT CORPORATE RECRUITER CLOSING NOTES PATIENT SEDATED, PATIENT IS AWAKE AND ABLE TO FOLLOW COMMANDS RESPONSES TO YES/NO QUESTIONS, NO SOB OR ACUTE DISTRESS NOTED AT THIS TIME, TOLERATING CURRENT VENT SETTINGS WITH SPO2 OF 98%, ETT /7.5/ IN PLACE, SR 72 ON BEDSIDE MONITOR, NGT IN PLACE WITH GLUCERNA @ 50ML/HR WITH NO RESIDUALS, BILATERAL UPPER SOFT WRIST RESTRAINTS IN PLACE FOR SAFETY. FC DRAINING CLEAR/YELLOW URINE VIA GRAVITY, KADE MIDLINE WITH DIPRIVAN @ 10MCG/KG/MIN AND NS@ TKO, BED IN LOW/LOCKED POSITION, CALL LIGHT WITHIN REACH . ENDORSED THE PATIENT TO AM RN FOR KELSI.
[2020-03-24] MEDS: PANTOPRAZOLE 40 MG/PACK PACK GT SCH (08:00)
[2020-03-24] MEDS: FUROSEMIDE 20 MG/2 ML VIAL IV SCH ×2 (08:00→16:21)
[2020-03-24] MEDS: TAMSULOSIN 0.4 MG CAP.SR.24H PO SCH (08:00)
[2020-03-24] MEDS: MEROPENEM 1 G in IV NS 0.9% 100 ML IV SCH (08:00)
[2020-03-24] MEDS: BISMUTH SUBSALICYLATE 262 MG/15 ML BOTTLE PO SCH ×4 (08:00→20:38)
--- NOTE | 2020-03-24 08:00 | NUR ---
RT RECEIVED PT INTUBATED 7.5 ETT @27CM AT THE LIP. SECURITY AND COMPLIANCE PROJECT MANAGER DONE AND ETT IS SECURE WITH ANCHOR FAST. NO RESP DISTRESS, TOLERATING VENT SETTINGS. SX'D SMALL AMT OF THICK YELLOW SECRETIONS. VENT IS PLUGGED IN RED OUTLET. VENT ALARMS SET AND AUDIBLE. AMBU BAG AT BEDSIDE. CONTINUE [facility] VENT SUPPORT
[2020-03-24] MEDS: Z GUARD REMEDY 2 OZ OINT TP SCH (08:01)
[2020-03-24 08:51] LABS: ABG BASE EXCESS 10.2 mmol/L; ABG OXYGEN SATURATION 95.2 % (92.0-98.5); ABG PH 7.533 (7.350-7.450); ABG PO2 76.2 mmHg (75.0-100.0); AaDO2 234.2 mmHg; COHb 0.1 % (0.5-1.5); O2Hb 95.1 % (94.0-97.0); PEEP,BG 5 cm H2O; SITE, ABG Right Brachial; VT, ABG 500 mL
[2020-03-24] MEDS ORDERED: ASPIRIN 81 MG TAB.CHEW PO SCH (09:00)
[2020-03-24] MEDS ORDERED: DC PROPOFOL WHEN EXTUBATED XX PRN (09:00)
--- NOTE | 2020-03-24 09:00 | NUR ---
FAMILY MEMBER CARETAKER NOTES SEEN AND EVALUATED BY DR JOSHI , DISCUSSED LABS , CHEST XRAY AND CURRENT VITAL SIGNS , AFEBRILE , STABLE ON VENT TOLERATING CURRENT SETTINGS OF AC 16 TV 500 FIO2 50% AND PEEP OF 5 WITH NO DISTRESS , SPO2 OF 100% , MD AWARE , AWAITING FOR ABG RESULTS
--- NOTE | 2020-03-24 09:30 | NUR ---
IMAGING SPECIALIST NOTES SEEN AND EVALUATED BY DR WILLETT , DISCUSSED LABS , CHEST XRAY AND ABG , TOLERATING VENT SETTINGS OF AC 16 TV 500 FIO2 50 PEEP OF 5% SPO2 OF 100% , AOX2 -3 , AWAKE , OFF DIPRIVAN , PHARMACY HELD PLAVIX AND ASPIRIN DUE TO PLT OF 77 , PER MD CONTINUE BOTH PT HAD STENT IN JANUARY ,
--- NOTE | 2020-03-24 09:36 | NUR ---
LATE ENTRY, ON 03/17/20 @ 11:30AM, PROPOFOL WAS INCREASED TO 15MCG/KG/MIN DUE TO MILD AGITATION.
[2020-03-24] MEDS: CLOPIDOGREL BISULFATE 75 MG TABLET PO SCH (09:49)
[2020-03-24] MEDS: ASPIRIN 81 MG TAB.CHEW PO SCH (09:49)
--- NOTE | 2020-03-24 10:38 | NUR ---
VISITOR SERVICES SPECIALIST NOTES RT JESSENIA AT BEDSIDE , PLACED PT ON SIMV RATE 4 , PEEP 5 AND PSV OF 15 , SPO2 OF 97% , WILL CONTINUE TO MONITOR
--- NOTE | 2020-03-24 10:43 | NUR ---
RT RT PLACED PT ON SIMV WITH NOTED SETTINGS PER MD ORDER. DAVIDA HARRIS AWARE, WILL CONTINUE TO MONITOR.
--- NOTE | 2020-03-24 12:46 | NUR ---
BOWL TURNER NOTES NOTIFIED DR WILLETT THAT PT HAD EPISODE OF DARK TARRY STOOL MODERATE IN AMOUNT , PER MD CHANGE PROTONIX 40MG NGT FROM DAILY TO BID AND ORDER STOOL OB , ORDERS CARRIED OUT
[2020-03-24 12:55] LABS: ABG BASE EXCESS 10.4 mmol/L; ABG OXYGEN SATURATION 90.7 % (92.0-98.5); ABG PH 7.489 (7.350-7.450); ABG PO2 60.9 mmHg (75.0-100.0); AaDO2 206.5 mmHg; COHb 0.3 % (0.5-1.5); MetHb 0.1 % (0.0-1.5); O2Hb 90.3 % (94.0-97.0); PEEP,BG 5 cm H2O; SITE, ABG Left Brachial; VENT MODE, BG SIMV PS 15
--- NOTE | 2020-03-24 12:55 | NUR ---
RT ABG DONE 2 HRS POST VENT CHANGES. RESULTS RELAYED TO DR JOSHI. AWAITING ORDERS. RN AWARE.
--- NOTE | 2020-03-24 13:01 | NUR ---
COMPUTER GAME TESTER NOTES ABG RELAYED TO DR JOSHI , PER PLACE PT ON HIGH FLOW NC @ 100% AND TITRATE TOLERATED , ORDER CARRIED OUT
--- NOTE | 2020-03-24 13:24 | NUR ---
POLICE ACADEMY INSTRUCTOR NOTES PATIENT EXTUBATED ORDERED , JESSENIA RT AT BEDSIDE , PT TOLERATED WELL WITH NO SIGNS OF DISTRESS VSS, SPO2 OF 100% , PT ON HIGH FLOW NC @ 95% 50LPM WILL CONTINUE TO MONITOR
--- NOTE | 2020-03-24 13:40 | NUR ---
RT PT EXTUBATED PER MD ORDER. NO STRIDOR AUSCULTATED. STRONG COUGH. PT AWAKE AND ALERT. PER MD PLACED PT ON HFNC. PT ON 50L HCNC W/ FIO2 OF 95%. TITRATE FIO2 POSSIBLE PER MD. PT TOLERATING SETTINGS. NO SOB OR RESP DISTRESS NOTED. RN AWARE. WILL CONTINUE TO MONITOR.
[2020-03-24 15:43] LABS: OCCULT BLOOD STOOL POSITIVE (NEGATIVE)
[2020-03-24] MEDS: CEFAZOLIN 1 GM in IV D5W 50 ML IV SCH (16:21)
--- NOTE | 2020-03-24 16:42 | NUR ---
HOME DEPOT REP NOTES NOTIFIED DR WILLETT THAT PT IS POSITIVE FOR STOOL OB , PER MD START PT ON PROTONIX 40MG IVP BID AND REPEAT CBC IN AM , ORDER CARRIED OUT
[2020-03-24] MEDS: PANTOPRAZOLE 40 MG VIAL IV SCH (20:38)
[2020-03-24] MEDS ORDERED: PANTOPRAZOLE 40 MG/PACK PACK GT SCH (21:00)
[2020-03-24] MEDS ORDERED: CEFAZOLIN 1 GM VIAL IM SCH (21:00)
[2020-03-24] MEDS: SENNOSIDES 8.6 MG TABLET PO SCH (23:44)
[2020-03-24] MEDS: GLUCERNA 1.2 1,000 ML BOTTLE NG PRN (23:48)
[2020-03-25] VITALS (43 sets, daily range): BP systolic 86–116; BP diastolic 52–69
[2020-03-25] MEDS: INSULIN GLARGINE, 100 UNIT/ML CARTRIDGE SQ SCH (00:12)
[2020-03-25] MEDS: INSULIN REGULAR, HUMAN 100 UNIT/ML 3 ML VIAL SQ PRN ×3 (00:13→23:06)
[2020-03-25] MEDS: BLOOD SUGAR DIAGNOSTIC 1 EACH STRIP IN SCH ×5 (00:13→23:03)
[2020-03-25] MEDS: CEFAZOLIN 1 GM in IV D5W 50 ML IV SCH ×2 (02:30→15:12)
[2020-03-25 04:47] LABS: BASOPHILS % (AUTO) 0.1 % (0.0-2.0); EOSINOPHILS % (AUTO) 3.1 % (0.0-6.0); HEMATOCRIT 27 % (39-51); HEMOGLOBIN 8.5 g/dL (13.5-17.5); LYMPHOCYTES # (AUTO) 0.7 /CMM (0.8-4.8); MEAN CORPUSCULAR HGB CONC 32 g/dl (31.0-36.0); MEAN CORPUSCULAR VOLUME 93 fL (80-96); MONOCYTES # (AUTO) 0.3 /CMM (0.1-1.30); MONOCYTES % (AUTO) 1.6 % (2.0-12.0); NEUTROPHILS # (AUTO) 15.3 /CMM (1.8-8.9); NEUTROPHILS % (AUTO) 91.2 % (43.0-81.0); PLATELET COUNT (AUTO) 78 /CMM (150-450); RED BLOOD CELL COUNT(AUTO) 2.89 MIL/uL (4.5-6.0); WHITE BLOOD COUNT (AUTO) 16.8 K/uL (4.3-11.0)
[2020-03-25 05:16] LABS: ALBUMIN 2.3 g/dL (3.4-5.0); BILIRUBIN,TOTAL 0.5 mg/dL (0.2-1.0); CALCIUM, SERUM 8.4 mg/dL (8.5-10.1); CREATININE 2.7 mg/dL (0.6-1.3); MAGNESIUM 3.1 mg/dL (1.8-2.4); PHOSPHORUS 3.7 mg/dL (2.5-4.9); POTASSIUM 4.2 mmol/L (3.5-5.1); TOTAL PROTEIN, SERUM 5.5 g/dL (6.4-8.2)
[2020-03-25 05:41] LABS: EOSINOPHILS % (MANUAL) 2 % (0-4); LYMPHOCYTES % (MANUAL) 2 % (16-48); MONOCYTES % (MANUAL) 1 % (0-11.0); NEUTROPHILS % (MANUAL) 95 (42-76)
[2020-03-25] MEDS: DEXTROSE 50%-WATER 50 ML DISP.SYRIN IV PRN (05:43)
--- NOTE | 2020-03-25 06:30 | NUR ---
INTERIM CONTROLLER: PT REMAINED A/O X 2-3. UNABLE TO TOLERATE WEANING FROM HIGH-FLOW OF 85% FI02. PLACED BACK ON 95% FI02 WT 02 SAT MOSTLY AT 92%. HAD EPISODE OF MODERATE TARRY STOOLS DURING THE SHIFT. GOOD SKIN CARE RENDERED. WILL ENDORSE TO MD IF STILL WANT TO CONTINUE PLAVIX AND ASPIRIN. ALSO GIVEN D50 IVP FOR BLOOD SUGAR=48 (NO S/S OF HYPOGLYCEMIA SUCH DIAPHORESIS OR CONFUSION) WT GOOD EFFECT AFTER 15 MINUTES (B.S.=170). GT FEEDING TOLERATING WELL. HOB AT 35 DEGREES. ASPIRATION PRECAUTION NOTED AT ALL TIMES.
--- NOTE | 2020-03-25 07:45 | NUR ---
ICU/RN: INITIAL NOTES,AM RECEIVED REPORT FROM NIGHT NURSE. PT ALERT, AWAKE, FOLLOWS COMMANDS. PT ON HIGH FLOW 50LITERS, 95%, SOME INCREASED WORK OF BREATHING NOTED YET MAINTAINING 02 SAT >92%. SINUS ON TELE. PT EXTUBATED YESTERDAY. TUBE FEEDING INFUSING, TOLERATING WELL, NO RESIDUAL NOTED. PLACEMENT VERIFIED. PT TURNED AND REPOSITIONED, ALL NEEDS ATTENDED TO, SAFETY MEASURES TAKEN, BED IN LOW POSITION, SIDE RAILS UP, CALL LIGHT WITHIN REACH.
[2020-03-25] MEDS: CLOPIDOGREL BISULFATE 75 MG TABLET PO SCH (08:30)
[2020-03-25] MEDS: PANTOPRAZOLE 40 MG VIAL IV SCH ×2 (08:30→21:59)
[2020-03-25] MEDS: ASPIRIN 81 MG TAB.CHEW PO SCH (08:30)
[2020-03-25] MEDS: FUROSEMIDE 20 MG/2 ML VIAL IV SCH (08:30)
[2020-03-25] MEDS: TAMSULOSIN 0.4 MG CAP.SR.24H PO SCH (08:30)
[2020-03-25] MEDS: Z GUARD REMEDY 2 OZ OINT TP SCH (08:31)
[2020-03-25] MEDS: BISMUTH SUBSALICYLATE 262 MG/15 ML BOTTLE PO SCH ×4 (08:31→22:01)
[2020-03-25 09:49] LABS: ABG BASE EXCESS 10.6 mmol/L; ABG OXYGEN SATURATION 87.6 % (92.0-98.5); ABG PCO2 46.1 mmHg (35.0-45.0); ABG PH 7.498 (7.350-7.450); AaDO2 574.7 mmHg; COHb 0.1 % (0.5-1.5); MetHb 0.3 % (0.0-1.5); O2Hb 87.2 % (94.0-97.0); SITE, ABG Right Brachial; VENT MODE, BG 95% high flow
--- NOTE | 2020-03-25 10:00 | NUR ---
ICU/RN: ABG DONE,. PER MD HIGH FLOW CHANGES MADE. PT NOW 60LITERS AND 100%. WILL CONTINUE TO MONITOR AND ASSESS.
--- NOTE | 2020-03-25 10:09 | NUR ---
high flow settings below changed due to 89% spo2 and 66 pao2: o2 flow = 60 liter fio2 = 100% rn aware on changes. Addendum: 03/25/20 at 1012 by DELONTE SINGH RT Amended: Links added.
--- NOTE | 2020-03-25 12:00 | NUR ---
ICU/RN: BEDSIDE NURSING SWALLOW EVAL DONE. PT ABLE TO EAT WITHOUT COUGHING, NO ACUTE DISTRESS, NO DESATURATION. WILL D/C NG AND DIET WILL BE ORDERED PER .
[2020-03-25] MEDS: IV D5W 1,000 ML IV SCH (13:09)
[2020-03-25] MEDS ORDERED: SOD FERRIC GLUC 125 MG in IV NS 0.9% 100 ML IV SCH (14:00)
[2020-03-25] MEDS: SOD FERRIC GLUC 125 MG in IV NS 0.9% 100 ML IV SCH (14:49)
[2020-03-25] MEDS ORDERED: FUROSEMIDE 20 MG/2 ML VIAL IV SCH (17:00)
--- NOTE | 2020-03-25 18:00 | NUR ---
ICU/RN: NG TUBE DISCONTINUED. PT ATE DINNER, NO DISTRESS, NO S/S OF ASPIRATION. HOB ELEVATED.
[2020-03-25 18:22] LABS: CALCIUM, SERUM 8.1 mg/dL (8.5-10.1); CREATININE 2.6 mg/dL (0.6-1.3); POTASSIUM 4.5 mmol/L (3.5-5.1)
--- NOTE | 2020-03-25 18:44 | NUR ---
ICU/RN: ENDING NOTES,AM REPORT WILL BE ENDORSED TO NIGHT NURSE. ALL NEEDS ATTENDED TO, ON HIGH FLOW, NO DISTRESS AT THIS TIME. 60LITERS, 100%. SINUS ON TELE. PT TURNED AND REPOSITIONED, NO ISSUES NOTED. UPDATES GIVEN TO SON OF PT. WILL CONTINUE CARE. IVF INFUSING ORDERED.
--- NOTE | 2020-03-25 19:15 | NUR ---
RN OPENING NOTES: RECEIVED PT A/OX 2-3; CALM AND VERY COOPERATIVE. PT IN BED RESTING COMFORTABLY. PATIENT IN NO S/SX OF ACUTE DISTRESS AT THIS TIME. NO SOB NOTED. PATIENT'S BREATHING IS EVEN AND UNLABORED. PATIENT IS ON HIGH FLOW OF OXYGEN (60LITERS, 100) VIA NC; TOLERATING WELL. PATIENT ON TELE MONITORING READING SINUS RHYTHM HR IS @86 AT THE TIME OF RECEIVED. NOTED IV SITE ON R UA MIDLINE #18 AND R FA #20; BOTH PATENT, INTACT AND FLUSHING WELL NO S/S OF INFECTION OR INFILTRATION. WITH IVF RUNNING ORDERED. WITH HADDAD CATH IN PLACE, WITH MODERATE YELLOW COLORED URINE OUTPUT. SAFETY MEASURES HAVE BEEN PROVIDED AND IMPLEMENTED. PATIENT BED ALARM IS ON. HEAD OF BED ELEVATED. BED IS LOCKED, IN LOWEST POSITION AND SIDE RAILS UP. CALL LIGHT WITHIN REACH OF THE PATIENT. ISOLATION PRECAUTIONS IN PLACE. WILL CONTINUE TO MONITOR AND REASSESS FOR ANY CHANGES.
--- NOTE | 2020-03-25 19:18 | NUR ---
RN NOTES RECEIVED CALL FROM LAB VIA RENATE INFORMING CRITICAL VALUE : BUN RESULT 116. PLAN: WILL INFORM DR. WILLETT AND VERIFY FOR ANY ORDERS
--- NOTE | 2020-03-25 19:25 | NUR ---
RN NOTES CALLED DR. WILLETT INFORMED HIM ABOUT THE BUN LEVEL PER LAB (BUN:116). PER NO FURTHER ORDER/S AT THIS TIME
--- NOTE | 2020-03-25 20:00 | NUR ---
IN HOME SALES CONSULTANT NOTES NO NOTED CHANGES TO PATIENT CONDITION/STATUS. SOLAR POOL HEATING INSTALLER MADE AWARE. WILL CONTINUE TO MONITOR AND REASSESS FOR ANY CHANGES THROUGHOUT THE SHIFT.
[2020-03-25] MEDS ORDERED: INSULIN GLARGINE, 100 UNIT/ML CARTRIDGE SQ SCH (22:00)
[2020-03-25] MEDS: SENNOSIDES 8.6 MG TABLET PO SCH (22:00)
--- NOTE | 2020-03-25 22:15 | NUR ---
RN NOTES NOTED PATIENT O2 SAT BASED ON MONITOR IS BELOW 90% WENT INSIDE THE ROOM OF THE PATIENT. CHANGED PULSE OX SENSOR AND ASSESSED PT'S BREATHING. O2 SATURATING IS STILL RUNNING AROUND 90% AND BELOW. PATIENT VERBALIZED THAT HE IS WELL AND OK. MANAGER SIGN MADE AWARE. CALLED ESTHER FOR ASSESSMENT; INFORMED ABOUT PATIENT'S STATUS.
--- NOTE | 2020-03-25 22:40 | NUR ---
RN NOTES AT THIS TIME PATIENT IS SATURATING @93-94% AFTER FACILITATION OF THE FOLLOWING : SUCTIONING AND TURN AND REPOSITION. PLANT AND EQUIPMENT WORKER MADE AWARE. WILL CONTINUE TO MONITOR AND REASSESS.
[2020-03-26] VITALS (36 sets, daily range): BP systolic 85–110; BP diastolic 52–69
--- NOTE | 2020-03-26 | NUR ---
MACHINE CLEANER NOTES NO NOTED CHANGES TO PATIENT CONDITION/STATUS. NETBACKUP ENGINEER MADE AWARE. WILL CONTINUE TO MONITOR AND REASSESS FOR ANY CHANGES THROUGHOUT THE SHIFT.
[2020-03-26] MEDS: IV D5W 1,000 ML IV SCH (01:50)
--- NOTE | 2020-03-26 02:00 | NUR ---
COMPOSITION FLOOR SETTER NOTES NO NOTED CHANGES TO PATIENT CONDITION/STATUS. BILL BOARD POSTER MADE AWARE. WILL CONTINUE TO MONITOR AND REASSESS FOR ANY CHANGES THROUGHOUT THE SHIFT.
[2020-03-26] MEDS: CEFAZOLIN 1 GM in IV D5W 50 ML IV SCH (03:27)
[2020-03-26] MEDS: BLOOD SUGAR DIAGNOSTIC 1 EACH STRIP IN SCH (05:59)
--- NOTE | 2020-03-26 06:00 | NUR ---
RN NOTES ACCU CHECK FOR 0600A, CAME OUT 44MG/DL. WILL ADMINISTER D50 IV PUSH ORDER. JUNIOR WEB DEVELOPER MADE AWARE WILL RE ASSESS AND CHECK BLOOD SUGAR AFTER 15-30MINUTES. JUNIOR WEB DEVELOPER MADE AWARE.WILL CONTINUE TO MONITOR AND REASSESS UNTIL END OF SHIFT
[2020-03-26] MEDS: DEXTROSE 50%-WATER 50 ML DISP.SYRIN IV PRN (06:02)
--- NOTE | 2020-03-26 06:25 | NUR ---
RN NOTES REPEAT ACCU CHECK DONE AFTER D50 IV PUSH; RESULT CAME OUT 158MG/DL; PT NOT IN DISTRESS. RN ANESTHETIST MADE AWARE.WILL CONTINUE TO MONITOR AND REASSESS UNTIL END OF SHIFT
--- NOTE | 2020-03-26 06:30 | NUR ---
SEASONAL WAREHOUSE ASSOCIATE NOTES NO NOTED CHANGES TO PATIENT CONDITION/STATUS. TREASURY ACCOUNTANT MADE AWARE. WILL CONTINUE TO MONITOR AND REASSESS FOR ANY CHANGES UNTIL END OF SHIFT.
--- NOTE | 2020-03-26 06:55 | NUR ---
RN CLOSING NOTES PATIENT REMAINS IN ROOM IN NO SIGNS OF RESPIRATORY DISTRESS. VITAL SIGNS WNL. ALL IV LINES MAINTAINED INTACT, PATENT AND FLUSHING WELL; WITH CURRENT RUNNING IV FLUID ORDERED. SAFETY PRECAUTIONS IN PLACE AND COMFORT MEASURES RENDERED. BED IN LOWEST POSITION, CALL LIGHT WITHIN REACH, BREAKS ON, SIDE RAILS UP. ALL NEEDS ATTENDED, MEDICATIONS GIVEN SCHEDULED AND ORDERED ; SHIFT ASSESSMENT/BEDBATH/SKIN CARE DONE. PATIENT KEPT CLEAN AND DRY. WILL ENDORSE TO INCOMING SHIFT FOR KELSI.
[2020-03-26 06:56] LABS: BASOPHILS # (AUTO) 0.1 /CMM (0.0-0.2); BASOPHILS % (AUTO) 0.4 % (0.0-2.0); EOSINOPHILS % (AUTO) 2.3 % (0.0-6.0); HEMATOCRIT 25 % (39-51); LYMPHOCYTES # (AUTO) 0.5 /CMM (0.8-4.8); LYMPHOCYTES % (AUTO) 2.9 % (20.0-44.0); MEAN CORPUSCULAR HGB CONC 33 g/dl (31.0-36.0); MEAN CORPUSCULAR VOLUME 93 fL (80-96); MONOCYTES # (AUTO) 0.5 /CMM (0.1-1.30); MONOCYTES % (AUTO) 2.7 % (2.0-12.0); NEUTROPHILS # (AUTO) 17.3 /CMM (1.8-8.9); NEUTROPHILS % (AUTO) 91.7 % (43.0-81.0); PLATELET COUNT (AUTO) 85 /CMM (150-450); RED BLOOD CELL COUNT(AUTO) 2.66 MIL/uL (4.5-6.0); WHITE BLOOD COUNT (AUTO) 18.9 K/uL (4.3-11.0)
[2020-03-26 07:20] LABS: ALBUMIN 2.3 g/dL (3.4-5.0); BILIRUBIN,TOTAL 0.4 mg/dL (0.2-1.0); CREATININE 2.4 mg/dL (0.6-1.3); MAGNESIUM 2.9 mg/dL (1.8-2.4); PHOSPHORUS 3.9 mg/dL (2.5-4.9); TOTAL PROTEIN, SERUM 5.5 g/dL (6.4-8.2)
--- NOTE | 2020-03-26 07:30 | NUR ---
RN OPENING NOTES RECEIVED PATIENT RESTING IN BED COMFORTABLY, NO S/SX OF DISTRESS. PT IS AOX2, VERBAL, AND ON BED REST. HE IS ON HI-FLOW OXYGEN AT 60L WITH 100% FIO2, TOLERATING WELL, DENIES SOB AT THIS TIME. LUNG SOUNDS DIMINISHED THROUGHOUT. TELE MONITOR SHOWING SR. SKIN IS INTACT, IV SITE ON KADE MIDLINE AND RFA 20 G IS PATENT AND INTACT, INFUSING D5W AT 75 ML/HR. ABDOMON SOFT AND NON-DISTENDED. HADDAD CATH PATENT AND INTACT, DRAINING CLEAR AND YELLOW URINE BY GRAVITY. COVID ISO HAS BEEN IMPLEMENTED AND ENFORCED. SAFETY MEASURES HAVE BEEN IMPLEMENTED, CALL LIGHT IS WITHIN REACH, BED IS IN LOWEST AND LOCKED POSITION, SIDE RAILS UP X2, WILL CONTINUE TO MONITOR FOR ANY CHANGES.
[2020-03-26] MEDS: ASPIRIN 81 MG TAB.CHEW PO SCH (08:05)
[2020-03-26] MEDS: TAMSULOSIN 0.4 MG CAP.SR.24H PO SCH (08:05)
[2020-03-26] MEDS: CLOPIDOGREL BISULFATE 75 MG TABLET PO SCH (08:05)
[2020-03-26] MEDS: PANTOPRAZOLE 40 MG VIAL IV SCH ×2 (08:05→21:06)
[2020-03-26] MEDS: BISMUTH SUBSALICYLATE 262 MG/15 ML BOTTLE PO SCH ×2 (08:06→13:12)
[2020-03-26] MEDS: Z GUARD REMEDY 2 OZ OINT TP SCH (08:06)
[2020-03-26 08:12] LABS: ABG BASE EXCESS 8.6 mmol/L; ABG OXYGEN SATURATION 95.1 % (92.0-98.5); ABG PCO2 55.8 mmHg (35.0-45.0); ABG PH 7.409 (7.350-7.450); AaDO2 575.2 mmHg; COHb 0.3 % (0.5-1.5); MetHb 0.2 % (0.0-1.5); O2Hb 94.6 % (94.0-97.0); SITE, ABG Right Brachial; VENT MODE, BG 100% HIGH FLOW
[2020-03-26] MEDS ORDERED: NOREPINEPHRINE 32 MG in IV NS 0.9% 218 ML IV PRN (11:00)
[2020-03-26] MEDS ORDERED: DEXTROSE 50%-WATER 50 ML DISP.SYRIN IV PRN (11:30)
[2020-03-26] MEDS ORDERED: IV D5W 1,000 ML IV PRN (11:30)
--- NOTE | 2020-03-26 11:45 | NUR ---
PER DR. WILLETT, HE DOES NOT WANT PT ON IVF. PT IS HYPOTENSIVE, WAITING FOR PICC LINE INSERTION TO BEGIN LEVO DRIP. ON NON-REBREATHER AND HI FLOW OXYGEN VIA NC, SATTING AT 91%.
[2020-03-26] MEDS ORDERED: BLOOD SUGAR DIAGNOSTIC 1 EACH STRIP IN SCH (12:00)
[2020-03-26] MEDS: BLOOD SUGAR DIAGNOSTIC 1 EACH STRIP VI SCH ×3 (12:01→22:36)
[2020-03-26] MEDS: MEROPENEM 1 G in IV NS 0.9% 100 ML IV SCH ×2 (12:17→21:05)
[2020-03-26] MEDS ORDERED: ALBUMIN 25% 12.5 GM/50 ML BOTTLE IV ONE (12:30)
[2020-03-26] MEDS: SOD FERRIC GLUC 125 MG in IV NS 0.9% 100 ML IV SCH (14:37)
[2020-03-26 16:44] LABS: BAND % (MANUAL) 2 % (0.0-5.0); EOSINOPHILS % (MANUAL) 1 % (0-4); LYMPHOCYTES % (MANUAL) 3 % (16-48); MONOCYTES % (MANUAL) 2 % (0-11.0); NEUTROPHILS % (MANUAL) 92 (42-76)
[2020-03-26] MEDS ORDERED: BISMUTH SUBSALICYLATE 262 MG/15 ML BOTTLE PO PRN (18:00)
[2020-03-26] MEDS: *INSULIN REGULAR(HUMULIN R)HUM 100 UNIT/ML VIAL SQ PRN ×2 (18:20→22:37)
--- NOTE | 2020-03-26 18:21 | NUR ---
1730 blood glucose level was 59, rechecked immediately and it was 61. Gave patient orange juice, will reassess blood glucose level
--- NOTE | 2020-03-26 19:30 | NUR ---
PT ON HIGHFLOW O2 AT 60LPM WITH 100% FIO2, SATING AT 92%. PT NEEDS HAVE BEEN MET, SAFETY MEASURES HAVE BEEN IMPLEMENTED, CALL LIGHT IS WIHTIN REACH, PT HAS BEEN ENDORSED TO NIGHTSHIFT RN FOR KELSI.
[2020-03-26] MEDS: SENNOSIDES 8.6 MG TABLET PO SCH (21:06)
[2020-03-26] MEDS: INSULIN GLARGINE, 100 UNIT/ML CARTRIDGE SQ SCH (22:00)
--- NOTE | 2020-03-26 23:47 | NUR ---
RNn notes Received patient in bed, awake with agonal breathing. On high flow at 60% O2 and non re-breather mask at 100% O2 with saturation of 89-90%. Using accessory muscles when breathing, respiration rapid and shallow. Alert, able to nod or shake head when answering questions. Afebrile with skin warm and dry to touch. No complaint of pain as of this time. At about 2300, noted patient's O2sat going down to 82 - 86%, still on agonal breathing. Noted congestion upon auscultation. Suctioned large amount of yellowish whitish thin secretion. ABG stat ordered. Waiting for result as of 2346. Continuous monitoring being done. at 001, Call MD, relayed ABG results and ordered ok to intubate.
[2020-03-26 23:55] LABS: ABG BASE EXCESS 6.3 mmol/L; ABG OXYGEN SATURATION 83.6 % (92.0-98.5); ABG PCO2 73.2 mmHg (35.0-45.0); ABG PH 7.288 (7.350-7.450); ABG PO2 55.8 mmHg (75.0-100.0); COHb 0.6 % (0.5-1.5); MetHb 0.2 % (0.0-1.5); O2Hb 82.9 % (94.0-97.0); SITE, ABG Left Brachial
[2020-03-27] VITALS (46 sets, daily range): BP systolic 56–119; BP diastolic 36–76
--- NOTE | 2020-03-27 00:35 | NUR ---
RT NOTES PT ORALLY INTUBATED BY ER WITH 7.5 ETT @25CM AT THE LIP LINE. COLOR CHANGE NOTED ON CO2 DETECTOR. MIST IN TUBE NOTED. EQUAL CHEST RISE NOTED. PT PLACED ON [facility] VENT PER MD ON ORDERED SETTINGS AC MODE, RATE 16, VT 500, FIO2 100%, PEEP +5. PAVING BLOCK CUTTER DONE. PT SUCTIONED. ALARMS SET AND AUDIBLE. VENT PLUGGED INTO TO RED OUTLET. ABG TO BE DONE IN AN HOUR. WILL CONT TO MONITOR. Addendum: 03/27/20 at 0448 by BETTY DAY RT Amended: Links added.
--- NOTE | 2020-03-27 00:52 | NUR ---
RN notes Intubated by ER MD at about 0030. Procedure well tolerated. No physical manifestation of pain or discomfort. O2sat at 99%. BP 91/54, HR 61 RR 16. Will keep close monitoring.
[2020-03-27] MEDS ORDERED: NOREPINEPHRINE 8MG/250ML RTU 250 ML IV ONE (01:00)
[2020-03-27] MEDS: NOREPINEPHRINE 8 MG in IV NS 0.9% 242 ML IV PRN ×6 (01:02→18:48)
[2020-03-27] MEDS ORDERED: PROPOFOL 100 ML ONE (02:00)
[2020-03-27] MEDS: PROPOFOL 100 ML IV PRN ×5 (02:33→21:25)
[2020-03-27 02:35] LABS: ABG BASE EXCESS 5.6 mmol/L; ABG OXYGEN SATURATION 93.9 % (92.0-98.5); ABG PCO2 52.5 mmHg (35.0-45.0); ABG PH 7.394 (7.350-7.450); ABG PO2 76.1 mmHg (75.0-100.0); AaDO2 584.4 mmHg; COHb 0.5 % (0.5-1.5); MetHb 0.4 % (0.0-1.5); O2Hb 93.1 % (94.0-97.0); SITE, ABG Right Brachial
--- NOTE | 2020-03-27 04:11 | NUR ---
RN notes Stat chest xray result showed ETT is in right position. Started levophed at 0100 at 0.1 mcg/kg/hr. No adverse effect noted. Applied wrist restraints for safety. Started on profofol at 5mcg/kg/hr and slowly titrate up to 20mcg/kg/hr. Patient is sedated but can easily be aroused. No physical manifestation of pain or discomfort. Kept clean and dry. Closely being monitored.
[2020-03-27 05:33] LABS: BASOPHILS # (AUTO) 0.2 /CMM (0.0-0.2); BASOPHILS % (AUTO) 0.6 % (0.0-2.0); EOSINOPHILS % (AUTO) 0.4 % (0.0-6.0); HEMATOCRIT 25 % (39-51); HEMOGLOBIN 8.2 g/dL (13.5-17.5); LYMPHOCYTES # (AUTO) 0.5 /CMM (0.8-4.8); MEAN CORPUSCULAR HGB CONC 33 g/dl (31.0-36.0); MEAN CORPUSCULAR VOLUME 94 fL (80-96); MONOCYTES # (AUTO) 0.3 /CMM (0.1-1.30); MONOCYTES % (AUTO) 1.3 % (2.0-12.0); NEUTROPHILS # (AUTO) 23.5 /CMM (1.8-8.9); NEUTROPHILS % (AUTO) 95.7 % (43.0-81.0); PLATELET COUNT (AUTO) 103 /CMM (150-450); RED BLOOD CELL COUNT(AUTO) 2.62 MIL/uL (4.5-6.0); WHITE BLOOD COUNT (AUTO) 24.5 K/uL (4.3-11.0)
[2020-03-27 05:49] LABS: CALCIUM, SERUM 7.5 mg/dL (8.5-10.1); CREATININE 2.7 mg/dL (0.6-1.3); MAGNESIUM 2.9 mg/dL (1.8-2.4); POTASSIUM 4.5 mmol/L (3.5-5.1)
--- NOTE | 2020-03-27 07:00 | NUR ---
RN notes Levophed titrated to 0.2mcg/kg/hr with BP of 117/70 HR 72 and Profopol at 25mc/kg/hr, patient sedated. No adverse effect noted. Both drugs well tolerated. No sign or symptoms of pain. Will endorse to next shift for continuity of care.
[2020-03-27] MEDS: BLOOD SUGAR DIAGNOSTIC 1 EACH STRIP VI SCH ×4 (07:52→22:35)
[2020-03-27] MEDS: INSULIN REGULAR, HUMAN 100 UNIT/ML 3 ML VIAL SQ PRN ×3 (07:53→17:10)
[2020-03-27] MEDS: MEROPENEM 1 G in IV NS 0.9% 100 ML IV SCH ×2 (08:02→21:25)
[2020-03-27] MEDS: TAMSULOSIN 0.4 MG CAP.SR.24H PO SCH (08:29)
[2020-03-27] MEDS: ASPIRIN 81 MG TAB.CHEW PO SCH (08:29)
[2020-03-27] MEDS: PANTOPRAZOLE 40 MG VIAL IV SCH ×2 (08:29→21:26)
[2020-03-27] MEDS: CLOPIDOGREL BISULFATE 75 MG TABLET PO SCH (08:30)
[2020-03-27 08:33] LABS: ABG BASE EXCESS 4.5 mmol/L; ABG PCO2 49.7 mmHg (35.0-45.0); ABG PH 7.399 (7.350-7.450); ABG PO2 176.7 mmHg (75.0-100.0); AaDO2 486.6 mmHg; COHb 0.3 % (0.5-1.5); MetHb 0.2 % (0.0-1.5); O2Hb 98.5 % (94.0-97.0); SITE, ABG Left Radial; VENT MODE, BG AC 16 500 100% +5
[2020-03-27] MEDS: FUROSEMIDE 40 MG/4 ML VIAL IV SCH ×3 (09:43→18:00)
[2020-03-27] MEDS ORDERED: ETOMIDATE 2 MG/ML VIAL ONE (09:44)
[2020-03-27] MEDS ORDERED: SUCCINYLCHOLINE CHLORIDE 20 MG/ML VIAL ONE (09:44)
[2020-03-27] MEDS: Z GUARD REMEDY 2 OZ OINT TP PRN (09:44)
[2020-03-27] MEDS: Z GUARD REMEDY 2 OZ OINT TP SCH (09:47)
[2020-03-27] MEDS ORDERED: FUROSEMIDE 40 MG/4 ML VIAL IV ONE (11:30)
[2020-03-27] MEDS ORDERED: DOSE PER PHARMACY MICAFUNGIN 1 EA XX PRN (14:00)
[2020-03-27] MEDS: SOD FERRIC GLUC 125 MG in IV NS 0.9% 100 ML IV SCH (15:43)
[2020-03-27] MEDS: MICAFUNGIN SODIUM 100 MG in IV NS 0.9% 100 ML IV SCH (16:51)
--- NOTE | 2020-03-27 17:38 | NUR ---
RN notes Sedated, s/p intubation. vital signs wnl. Levophed at 2mcg/kg/hr and Profopol at 20mc/kg/hr still running, no side effects noted. Seen and examined by Dr. Doshi with new orders for Lasix inj. Also ordered ok to insert NGTube, noted and carried out. Procedure well tolerated. Xray showed the tip is in place. Started feeding Glucerna 1.2 at 10mls/hr then increased to slowly to 30. No signs or symptoms of aspiration. Will keep close monitoring.
--- NOTE | 2020-03-27 19:30 | NUR ---
[employer] RCD PT W/DX RESP FAIL, PNA; PT IS SEDATED ON PROFOL @ 30 MCG/KG/MIN. LEVOPHED AT 0.2 MCG/KG/MIN. PT ON ISOLATION PRECAUTIONS FOR COVID +. NSR ON MONITOR. BRUISING NOTED TO BUE. OPEN WOUNDS x3 TO LEFT/RIGHT BUTTOCKS AREA. MEPILEX IN PLACE. KADE PICC LINE W/NS @ TKO. R HAND IV NOTED W/DRY BLOOD AND NOT FLUSHING; REMOVED TOLERATED WELL. OG TUBE W/GLUCERNA 1.2 @ 30 ML/HR W/GOAL RATE 50 ML/HR.
[2020-03-27] MEDS: IV NS 0.9% 250 ML IV PRN (21:25)
[2020-03-27] MEDS: SENNOSIDES 8.6 MG TABLET PO SCH (22:00)
[2020-03-27] MEDS: INSULIN GLARGINE, 100 UNIT/ML CARTRIDGE SQ SCH (22:00)
[2020-03-27] MEDS: GLUCERNA 1.2 1,000 ML BOTTLE NG PRN (23:24)
[2020-03-28] VITALS (96 sets, daily range): BP systolic 71–134; BP diastolic 45–86
[2020-03-28] MEDS: NOREPINEPHRINE 8 MG in IV NS 0.9% 242 ML IV PRN ×3 (00:30→11:53)
[2020-03-28] MEDS: PROPOFOL 100 ML IV PRN ×4 (00:30→21:34)
[2020-03-28] MEDS: FUROSEMIDE 40 MG/4 ML VIAL IV SCH ×3 (01:32→17:55)
[2020-03-28] MEDS ORDERED: NOREPINEPHRINE 8MG/250ML RTU 250 ML IV ONE (04:33)
[2020-03-28 04:47] LABS: BASOPHILS % (AUTO) 0.3 % (0.0-2.0); EOSINOPHILS % (AUTO) 4.2 % (0.0-6.0); HEMATOCRIT 25 % (39-51); HEMOGLOBIN 7.9 g/dL (13.5-17.5); LYMPHOCYTES # (AUTO) 0.3 /CMM (0.8-4.8); LYMPHOCYTES % (AUTO) 2.1 % (20.0-44.0); MEAN CORPUSCULAR HGB CONC 31 g/dl (31.0-36.0); MEAN CORPUSCULAR VOLUME 95 fL (80-96); MONOCYTES # (AUTO) 0.3 /CMM (0.1-1.30); MONOCYTES % (AUTO) 1.9 % (2.0-12.0); NEUTROPHILS % (AUTO) 91.5 % (43.0-81.0); PLATELET COUNT (AUTO) 128 /CMM (150-450); RED BLOOD CELL COUNT(AUTO) 2.68 MIL/uL (4.5-6.0); WHITE BLOOD COUNT (AUTO) 15.3 K/uL (4.3-11.0)
--- NOTE | 2020-03-28 06:46 | NUR ---
FINGERER PT REMAINED ON LEVOPHED 0.3 MCG/KG/MIN AND DIPRIVAN @ 50 MCG/KG/MIN; UNABLE TO WEAN DOWN D/T EPISODES OF HYPOTENSION AND TACHYPNEA.
--- NOTE | 2020-03-28 07:30 | NUR ---
RN NOTES RECEIVED PATIENT SEDATED WITH DIPRIVAN RUNNING AT 50MCG/KG/MIN. ORALLY INTUBATED. SATURATION GOOD AT 95 % ON THE MONITOR BUT PATIENT IS NOTED WITH DEEP BREATHS WITH THE USE OF ACCESSORY MUSCLE ON BREATHING. OGT IN PLACE, PLACEMENT VERIFIED BY AUSCULTATION AND ASPIRATING GASTRIC RESIDUAL, APPROX. OFF 30CC OF RESIDUAL TAKEN AT THIS TIME. PATIENT SINUS RHYTHM ON THE MONITOR WITH HR ON THE 80s. WITH ONGOING LEVOPHED AT 0.3MCG/KG/MIN-WILL TITRATE ABLE. KADE PICC LINE WITH TRIPLE LUMEN, PORT ABLE TO BE FLUSHED, DRESSING DRY AND INTACT. BILATERAL SOFT RESTRAINTS IN PLACE, REMOVE AND REPLACED TO CHECK FOR SKIN INTEGRITY, NO SKIN ISSUE NOTED AT THIS TIME. HADDAD CATHETER IN PLACE, DRAINING TO CLEAR DARK YELLOW TO YUE URINE. HOB ELEVATED. SAFETY MEASURES OBSERVED AND MAINTAINED. CALL LIGHT PLACED WITHIN REACH. WILL CONTINUE TO IMPLEMENT ISOLATION DUE TO POSITIVE COVID AND WILL CONTINUE TO MONITOR PATIENT ACCORDINGLY
[2020-03-28 08:24] LABS: ALBUMIN 2.1 g/dL (3.4-5.0); BILIRUBIN,TOTAL 0.7 mg/dL (0.2-1.0); CALCIUM, SERUM 7.1 mg/dL (8.5-10.1); CREATININE 2.9 mg/dL (0.6-1.3); MAGNESIUM 2.7 mg/dL (1.8-2.4); PHOSPHORUS 5.5 mg/dL (2.5-4.9); POTASSIUM 3.6 mmol/L (3.5-5.1); TOTAL PROTEIN, SERUM 5.7 g/dL (6.4-8.2)
[2020-03-28] MEDS: BLOOD SUGAR DIAGNOSTIC 1 EACH STRIP VI SCH ×4 (08:24→21:31)
[2020-03-28] MEDS: PANTOPRAZOLE 40 MG VIAL IV SCH ×2 (08:25→21:04)
[2020-03-28] MEDS: INSULIN REGULAR, HUMAN 100 UNIT/ML 3 ML VIAL SQ PRN ×2 (08:25→17:57)
[2020-03-28] MEDS: MEROPENEM 1 G in IV NS 0.9% 100 ML IV SCH ×2 (08:25→21:03)
[2020-03-28] MEDS: TAMSULOSIN 0.4 MG CAP.SR.24H PO SCH (08:26)
[2020-03-28] MEDS: ASPIRIN 81 MG TAB.CHEW PO SCH (08:26)
[2020-03-28] MEDS: CLOPIDOGREL BISULFATE 75 MG TABLET PO SCH (08:26)
[2020-03-28] MEDS: Z GUARD REMEDY 2 OZ OINT TP SCH (08:27)
--- NOTE | 2020-03-28 08:54 | NUR ---
WOUND CARE CONSULT: REVIEWED CHART, NURSING DOCUMENTATION AND PHOTOS WHICH INDICATE RASH TO BUTTOCKS WITH OPEN SKIN AREAS. RECOMMENDATIONS MADE FOR SKIN PROTECTION AND SKIN CARE. DISCUSSED WITH NURSING STAFF. PT IS ON [facility] LOW AIRLOSS BED. MD IN AGREEMENT WITH PLAN OF CARE.
[2020-03-28] MEDS ORDERED: BUMETANIDE INJ 16 MG in IV NS 0.9% 16 ML IV ONE (09:00)
--- NOTE | 2020-03-28 09:00 | NUR ---
RN NOTES DR. WILLETT WITH INQUIRIES ON FUROSEMIDE IV ORDER. PER ORDER HISTORY, DR. METZGER D/C FUROSEMIDE 40MG IV AND ORDER BUMEX IV 16MG. DR. WILLETT MADE AWARE AND WITH INSTRUCTION NOT TO GIVE BUMEX. ORDER NOTED AND CARRIED OUT
[2020-03-28 10:00] LABS: BILIRUBIN,TOTAL 0.7 mg/dL (0.2-1.0); CALCIUM, SERUM 7.1 mg/dL (8.5-10.1); CREATININE 2.6 mg/dL (0.6-1.3); MAGNESIUM 2.6 mg/dL (1.8-2.4); PHOSPHORUS 5.1 mg/dL (2.5-4.9); POTASSIUM 3.3 mmol/L (3.5-5.1); TOTAL PROTEIN, SERUM 5.5 g/dL (6.4-8.2)
[2020-03-28] MEDS: CLOTRIMAZOLE 1% 15 GM TUBE TP SCH ×2 (10:12→17:56)
[2020-03-28] MEDS: SOD FERRIC GLUC 125 MG in IV NS 0.9% 100 ML IV SCH (14:56)
[2020-03-28] MEDS: NOREPINEPHRINE 32 MG in IV NS 0.9% 218 ML IV PRN (14:57)
--- NOTE | 2020-03-28 16:20 | NUR ---
rn notes 1620> relayed rhythm changes to Dr. Cameron, obtained order for Amio drip due to A flutter and recheck of potassium and magnesium level. order noted and carried out. 1511> relayed to Dr. Cameron that patient is now with sinus rhythm with hr on the 90s. clarified if amiodarone should still be given, per Dr. Cameron, no need to administer. 1900> relayed potassium at 3.2 and mg at 2.5. obtained order for potassium 40meq via Gt one time dose. order noted and carried out
[2020-03-28] MEDS: MICAFUNGIN SODIUM 100 MG in IV NS 0.9% 100 ML IV SCH (16:58)
[2020-03-28] MEDS ORDERED: AMIODARONE 150 MG in IV D5W 100 ML IV ONE (17:00)
[2020-03-28] MEDS ORDERED: AMIODARONE 450 MG in IV D5W 250 ML IV PRN (17:10)
[2020-03-28 17:46] LABS: MAGNESIUM 2.5 mg/dL (1.8-2.4); POTASSIUM 3.2 mmol/L (3.5-5.1)
--- NOTE | 2020-03-28 19:20 | NUR ---
RN NOTES RECEIVED PT ON BED SEDATED ON ETT/VENT SETTING ORDERED SPO2 98% TELE MONITOR READS SINUS RHYTHM 80'S HAVE OGTUBE ON PLACED, PATENT, PLACEMENT CHECKED, RESIDUAL 10ML WITH ONGOING GLUCERNA @ 40ML/HR, HAVE KADE 3 LUMEN PICC WITH ONGOING DIPRIVAN @ 50MCG/KG/MIN AND LEVOPHED 32MG @ 0.5 MCG/KG/MIN INFUSING WELL, WITH YELLOW URINE DRAINING FROM HADDAD CATHETER VIA GRAVITY, DROPLET ISOLATION MAINTAIN FOR COVID (+), WITH BILATERAL WRIST RESTRAINT, EXTREMITIES CIRCULATION CHECKED WNL, BED ON LOWEST POSITION AND LOCKED SIDE RAILS UP WILL CONT TO MONITOR
[2020-03-28] MEDS ORDERED: POTASSIUM CHLORIDE 20 MEQ POWDER PACKET GT ONE (20:00)
[2020-03-28] MEDS: SENNOSIDES 8.6 MG TABLET PO SCH (21:04)
[2020-03-28] MEDS: INSULIN GLARGINE, 100 UNIT/ML CARTRIDGE SQ SCH (21:32)
[2020-03-28] MEDS: *INSULIN REGULAR(HUMULIN R)HUM 100 UNIT/ML VIAL SQ PRN (21:33)
--- NOTE | 2020-03-28 22:10 | NUR ---
DAVIDA NOTES TEMP 101.4 COOLING MEASURE CONT, WILL CONT TO MONITOR THE PT Addendum: 03/28/20 at 2212 by NAYA SAMANIEGO RN ERROR DOCUMENTATION WRONG PT
[2020-03-29] VITALS (91 sets, daily range): BP systolic 80–127; BP diastolic 45–76
[2020-03-29] MEDS: NOREPINEPHRINE 32 MG in IV NS 0.9% 218 ML IV PRN ×2 (01:33→11:45)
[2020-03-29] MEDS: GLUCERNA 1.2 1,000 ML BOTTLE NG PRN (02:06)
[2020-03-29] MEDS: PROPOFOL 100 ML IV PRN ×5 (02:50→20:10)
[2020-03-29] MEDS: IV NS 0.9% 250 ML IV PRN (04:01)
[2020-03-29] MEDS: Z GUARD REMEDY 2 OZ OINT TP PRN (04:03)
[2020-03-29 04:38] LABS: BASOPHILS # (AUTO) 0.1 /CMM (0.0-0.2); BASOPHILS % (AUTO) 0.5 % (0.0-2.0); EOSINOPHILS % (AUTO) 6.3 % (0.0-6.0); HEMATOCRIT 24 % (39-51); HEMOGLOBIN 7.6 g/dL (13.5-17.5); LYMPHOCYTES # (AUTO) 0.4 /CMM (0.8-4.8); LYMPHOCYTES % (AUTO) 3.4 % (20.0-44.0); MEAN CORPUSCULAR HGB CONC 32 g/dl (31.0-36.0); MEAN CORPUSCULAR VOLUME 94 fL (80-96); MONOCYTES # (AUTO) 0.3 /CMM (0.1-1.30); MONOCYTES % (AUTO) 2.9 % (2.0-12.0); NEUTROPHILS # (AUTO) 9.7 /CMM (1.8-8.9); NEUTROPHILS % (AUTO) 86.9 % (43.0-81.0); PLATELET COUNT (AUTO) 127 /CMM (150-450); RED BLOOD CELL COUNT(AUTO) 2.51 MIL/uL (4.5-6.0); WHITE BLOOD COUNT (AUTO) 11.2 K/uL (4.3-11.0)
[2020-03-29 05:23] LABS: CREATININE 2.8 mg/dL (0.6-1.3); POTASSIUM 3.6 mmol/L (3.5-5.1)
--- NOTE | 2020-03-29 07:26 | NUR ---
RN NOTES PT ON BED SEDATED STILL ON ETT/VENT SETTING ORDERED CURRENT FIO2 IS 60% @ SPO2 96% TELE MONITOR READS SINUS RHYTHM 80'S STILL ON DIPRIVAN @ 40MCG/KG/MIN AND LEVOPHED 32MG @ 0.5MCG/KG/MIN STILL ON OGT PLACEMENT CHECKED AND VERIFIED, WITH ONGOING GLUCERNA @ 50ML/HR DROPLET ISOLATION MAINTAINED FOR COVID 19 ALL NEEDS ATTENDED NO SIGNIFICANT CHANGES ON CONDITION NOTED SAFETY MEASURE MAINTAINED BED ON LOWEST POSITION AND LOCKED SIDE RAILS UP WILL ENDORSED TO AM SHIFT NURSE
[2020-03-29] MEDS: PANTOPRAZOLE 40 MG VIAL IV SCH ×2 (08:12→21:48)
[2020-03-29] MEDS: ASPIRIN 81 MG TAB.CHEW PO SCH (08:12)
[2020-03-29] MEDS: FUROSEMIDE 40 MG/4 ML VIAL IV SCH (08:12)
[2020-03-29] MEDS: TAMSULOSIN 0.4 MG CAP.SR.24H PO SCH (08:13)
[2020-03-29] MEDS: Z GUARD REMEDY 2 OZ OINT TP SCH (08:13)
[2020-03-29] MEDS: CLOPIDOGREL BISULFATE 75 MG TABLET PO SCH (08:13)
[2020-03-29] MEDS: CLOTRIMAZOLE 1% 15 GM TUBE TP SCH ×2 (08:13→16:13)
[2020-03-29] MEDS: MEROPENEM 1 G in IV NS 0.9% 100 ML IV SCH ×2 (08:18→21:25)
[2020-03-29] MEDS: BLOOD SUGAR DIAGNOSTIC 1 EACH STRIP VI SCH ×4 (08:19→22:13)
[2020-03-29] MEDS ORDERED: BUMETANIDE INJ 12 MG in IV D5W 72 ML IV ONE ×2 (08:30→11:00)
--- NOTE | 2020-03-29 08:34 | NUR ---
vent changes below per dr. feliciano: fio2 50% peep +5 Addendum: 03/29/20 at 0835 by DELONTE SINGH RT Amended: Links added.
[2020-03-29] MEDS: INSULIN REGULAR, HUMAN 100 UNIT/ML 3 ML VIAL SQ PRN ×3 (09:18→17:46)
--- NOTE | 2020-03-29 09:18 | NUR ---
RN NOTE CALLED PHARMACY REGARDING THE BUMEX ORDER. PHARMACY IS CLARIFYING THE ORDER WITH MD PRIOR TO SENDING IT. PHARMACY WILL GIVE ME AN UPDATE ONCE THE ORDER IS CLARIFIED AND IF OK TO GIVE. SAFETY MAINTAINED, CALL LIGHT WITHIN REACH, WILL CONTINUE TO MONITOR CLOSELY.
[2020-03-29 09:53] LABS: ABG BASE EXCESS 7.8 mmol/L; ABG OXYGEN SATURATION 88.1 % (92.0-98.5); ABG PCO2 64.7 mmHg (35.0-45.0); ABG PH 7.349 (7.350-7.450); ABG PO2 59.1 mmHg (75.0-100.0); AaDO2 224.6 mmHg; COHb 0.7 % (0.5-1.5); MetHb 0.3 % (0.0-1.5); O2Hb 87.2 % (94.0-97.0); PEEP,BG 5 cm H2O; SITE, ABG Right Brachial; VT, ABG 600 mL
[2020-03-29] MEDS: AMIODARONE HCL 200 MG TABLET PO SCH ×2 (09:58→21:48)
--- NOTE | 2020-03-29 09:58 | NUR ---
placed back into peep +[address] feliciano. Addendum: 03/29/20 at 0958 by DELONTE SINGH RT Amended: Links added.
--- NOTE | 2020-03-29 10:00 | NUR ---
RN NOTE PATIENT IS AGITATED, DID NOT TOLERATE THE SEDATION VACATION, PER DR JOSHI ORDER, INCREASE THE PROPOFOL TO 50MCG/KG/HR. FOLLOWED ORDERS, INCREASED PROPOFOL PT TOLERATED WELL. SAFETY MAINTAINED, CALL LIGHT WITHIN REACH, WILL CONTINUE TO MONITOR CLOSELY.
[2020-03-29] MEDS: SOD FERRIC GLUC 125 MG in IV NS 0.9% 100 ML IV SCH (15:12)
[2020-03-29] MEDS: MICAFUNGIN SODIUM 100 MG in IV NS 0.9% 100 ML IV SCH (16:12)
--- NOTE | 2020-03-29 18:47 | NUR ---
RN CLOSING NOTES NO ACUTE CHANGES TO PATIENT CONDITION DURING MY SHIFT. REMAINED IN STABLE CONDITION DURING MY SHIFT. ON MECHANICAL VENT WITH SETTINGS TOLERATING WELL, NO SIGNS OF RESPIRATORY DISTRESS NOTED. SR ON THE MONITOR. HADDAD CATHETER IS IN PLACE, 1400ML OF URINE WAS RECORDED DURING MY SHIFT. DIURETICS WERE ADMINISTERED ORDERED. ON TUBE FEEDING TOLERATING WELL, NO RESIDUAL NOTED. ON LEVOPHED AT 0.5MCG, BP MAINTAINED ORDERED. ON DIPRIVAN AT 50MCG COMFORTABLY SEDATED. ALL PATIENTS NEEDS MET, CALL LIGHT WITHIN REACH, WILL ENDORSE TO PM NURSE FOR KELSI.
--- NOTE | 2020-03-29 19:10 | NUR ---
RN NOTES RECEIVED PT ON BED SEDATED ON ETT/VENT SETTING ORDERED SPO2 98% TELE MONITOR READS SINUS RHYTHM 80'S HAVE OGTUBE ON PLACED, PATENT, PLACEMENT CHECKED, RESIDUAL 10ML WITH ONGOING GLUCERNA @ 50ML/HR, HAVE KADE 3 LUMEN PICC WITH ONGOING DIPRIVAN @ 50MCG/KG/MIN AND LEVOPHED 32MG @ 0.5 MCG/KG/MIN AND BUMEX @ 5ML/HR INFUSING WELL, WITH YELLOW URINE DRAINING FROM HADDAD CATHETER VIA GRAVITY, DROPLET ISOLATION MAINTAIN FOR COVID (+), WITH BILATERAL WRIST RESTRAINT, EXTREMITIES CIRCULATION CHECKED WNL, BED ON LOWEST POSITION AND LOCKED SIDE RAILS UP WILL CONT TO MONITOR
[2020-03-29] MEDS: SENNOSIDES 8.6 MG TABLET PO SCH (21:48)
[2020-03-29] MEDS: INSULIN GLARGINE, 100 UNIT/ML CARTRIDGE SQ SCH (22:14)
[2020-03-29] MEDS: *INSULIN REGULAR(HUMULIN R)HUM 100 UNIT/ML VIAL SQ PRN (22:15)
[2020-03-30] VITALS (79 sets, daily range): BP systolic 83–122; BP diastolic 54–69
[2020-03-30] MEDS: PROPOFOL 100 ML IV PRN ×6 (01:01→22:55)
[2020-03-30] MEDS: NOREPINEPHRINE 32 MG in IV NS 0.9% 218 ML IV PRN ×2 (01:02→16:35)
[2020-03-30] MEDS: GLUCERNA 1.2 1,000 ML BOTTLE NG PRN ×2 (02:00→16:49)
[2020-03-30] MEDS: IV NS 0.9% 250 ML IV PRN (04:00)
[2020-03-30 05:02] LABS: CALCIUM, SERUM 8.2 mg/dL (8.5-10.1); CREATININE 2.7 mg/dL (0.6-1.3)
[2020-03-30 07:05] LABS: BASOPHILS # (AUTO) 0.1 /CMM (0.0-0.2); BASOPHILS % (AUTO) 0.9 % (0.0-2.0); EOSINOPHILS % (AUTO) 6.7 % (0.0-6.0); HEMATOCRIT 25 % (39-51); HEMOGLOBIN 7.9 g/dL (13.5-17.5); LYMPHOCYTES # (AUTO) 0.4 /CMM (0.8-4.8); LYMPHOCYTES % (AUTO) 3.9 % (20.0-44.0); MEAN CORPUSCULAR HGB CONC 32 g/dl (31.0-36.0); MEAN CORPUSCULAR VOLUME 95 fL (80-96); MONOCYTES # (AUTO) 0.5 /CMM (0.1-1.30); MONOCYTES % (AUTO) 4.2 % (2.0-12.0); NEUTROPHILS # (AUTO) 9.3 /CMM (1.8-8.9); NEUTROPHILS % (AUTO) 84.3 % (43.0-81.0); PLATELET COUNT (AUTO) 125 /CMM (150-450); RED BLOOD CELL COUNT(AUTO) 2.61 MIL/uL (4.5-6.0)
[2020-03-30] MEDS: BLOOD SUGAR DIAGNOSTIC 1 EACH STRIP VI SCH ×4 (07:30→21:33)
--- NOTE | 2020-03-30 07:45 | NUR ---
RN NOTES PT ON BED SEDATED STILL ON ETT/VENT SETTING ORDERED CURRENT FIO2 IS 50% @ SPO2 96% TELE MONITOR READS SINUS RHYTHM 80'S STILL ON DIPRIVAN @ 50MCG/KG/MIN AND LEVOPHED 32MG @ 0.5MCG/KG/MIN STILL ON OGT PLACEMENT CHECKED AND VERIFIED, WITH ONGOING GLUCERNA @ 50ML/HR DROPLET ISOLATION MAINTAINED FOR COVID 19 ALL NEEDS ATTENDED NO SIGNIFICANT CHANGES ON CONDITION NOTED SAFETY MEASURE MAINTAINED BED ON LOWEST POSITION AND LOCKED SIDE RAILS UP WILL ENDORSED TO AM SHIFT NURSE
--- NOTE | 2020-03-30 08:00 | NUR ---
RN OPENING NOTE: RECEIVED PATIENT IN BED THIS MORNING. PATIENT IS INTUBATED AND CURRENTLY SEDATED, TOLERATING VENT SETTINGS WELL. SR IN THE 70S NOTED ON THE BEDSIDE MONITOR. NO SIGNS OF ACUTE DISTRESS AT THIS TIME. OGT RUNNING GLUCERNA 1.2 @ 50CC/HR WITH 100CC RESIDUAL. HADDAD DRAINING URINE. WOUND CARE PER ORDERS. KADE PICC LINE, C/D/I, FLUSHING WELL, NO SIGNS OF COMPLICATIONS NOTED. SAFETY MEASURES IMPLEMENTED, BED IN LOWEST POSITION, LOCKED, SIDE RAILS UP, CALL LIGHT WITHIN REACH. WILL CONTINUE TO MONITOR PATIENT FOR CHANGES.
--- NOTE | 2020-03-30 08:00 | NUR ---
INITIATED CVP MONITORING PER DR LANTIGUA
[2020-03-30] MEDS: AMIODARONE HCL 200 MG TABLET PO SCH ×2 (08:13→20:26)
[2020-03-30] MEDS: PANTOPRAZOLE 40 MG VIAL IV SCH ×2 (08:13→20:25)
[2020-03-30] MEDS: CLOPIDOGREL BISULFATE 75 MG TABLET PO SCH (08:13)
[2020-03-30] MEDS: ASPIRIN 81 MG TAB.CHEW PO SCH (08:13)
[2020-03-30] MEDS: TAMSULOSIN 0.4 MG CAP.SR.24H PO SCH (08:13)
[2020-03-30] MEDS: MEROPENEM 1 G in IV NS 0.9% 100 ML IV SCH ×2 (08:14→20:25)
[2020-03-30] MEDS: CLOTRIMAZOLE 1% 15 GM TUBE TP SCH ×2 (08:15→18:13)
[2020-03-30] MEDS: Z GUARD REMEDY 2 OZ OINT TP SCH (08:16)
[2020-03-30] MEDS: INSULIN REGULAR, HUMAN 100 UNIT/ML 3 ML VIAL SQ PRN ×2 (08:56→11:43)
[2020-03-30] MEDS: METOLAZONE 2.5 MG TABLET PO SCH (11:21)
[2020-03-30] MEDS: MICAFUNGIN SODIUM 100 MG in IV NS 0.9% 100 ML IV SCH (15:43)
--- NOTE | 2020-03-30 17:03 | NUR ---
AWAITING JUANI FROM PHARMACY
[2020-03-30] MEDS: BUMETANIDE INJ 0.25 MG/ML VIAL IV SCH (17:16)
--- NOTE | 2020-03-30 19:29 | NUR ---
RN OPENING NOTES RECEIVED PT INTUBATED IN BED SEDATED. IN SEMI VILLANUEVA'S POSITION. TOELRATING VENT SETTINGS WELL. VITAL SIGNS WNL. SR ON THE BEDSIDE MONITOR. NO INDICATIONS OF PAIN OR DISCOMFORT. ORAL CARE DONE. OGT PATENT AND IN PLACE VERIFIED BY AUSCULTATION AND ASPIRATION OF GASTRIC CONTENTS. MINIMAL GASTRIC RESIDUAL NOTED. OGT FLUSHED. WITH TUBE FEEDING RUNNING AT 50ML/HOUR. HADDAD CATHETER IN PLACE DRIANING URINE. CVP MONITORING IN PLACE WITH READING OF 3. KADE PICC LINE INTACT. WITH DIPROVAN RUNNING AT 50 AND LEVO RUNNING AT 0.5. PT REPOSITIONED. CONTACT AND DROPLET PRECUATIONS IN PLACE. SAFETY MEASURES IN PLACE, WILL MONITOR.
[2020-03-30] MEDS: SENNOSIDES 8.6 MG TABLET PO SCH (21:32)
[2020-03-30] MEDS: *INSULIN REGULAR(HUMULIN R)HUM 100 UNIT/ML VIAL SQ PRN (21:34)
[2020-03-30] MEDS: INSULIN GLARGINE, 100 UNIT/ML CARTRIDGE SQ SCH (21:35)
[2020-03-31] VITALS (92 sets, daily range): BP systolic 85–116; BP diastolic 52–68
--- NOTE | 2020-03-31 | NUR ---
RN NOTE BED BATH AND AM CARE COMPLETED. PT TOLERATED WELL. VITAL SIGNS STABLE. OGT PATENCY AND PLACEMENT VERIFIED VIA AUSCULTATION AND ASPIRATION OF GASTRIC CONTENTS. TUBE FEEDING RESUMED AT 50ML/HOUR. WILL CONTINUE TO MONITOR.
[2020-03-31] MEDS: PROPOFOL 100 ML IV PRN ×5 (03:20→18:49)
[2020-03-31] MEDS: NOREPINEPHRINE 32 MG in IV NS 0.9% 218 ML IV PRN ×2 (03:49→15:26)
--- NOTE | 2020-03-31 03:59 | NUR ---
RN NOTE RT SALOMÓN AT BEDSIDE AND LOWERED FIO2 TO 40%. WILL MONITOR PATIENT.
[2020-03-31 04:21] LABS: BASOPHILS # (AUTO) 0.1 /CMM (0.0-0.2); BASOPHILS % (AUTO) 0.8 % (0.0-2.0); HEMATOCRIT 27 % (39-51); HEMOGLOBIN 8.5 g/dL (13.5-17.5); LYMPHOCYTES # (AUTO) 1.1 /CMM (0.8-4.8); LYMPHOCYTES % (AUTO) 6.9 % (20.0-44.0); MEAN CORPUSCULAR HGB CONC 32 g/dl (31.0-36.0); MEAN CORPUSCULAR VOLUME 96 fL (80-96); MONOCYTES # (AUTO) 0.8 /CMM (0.1-1.30); MONOCYTES % (AUTO) 4.8 % (2.0-12.0); NEUTROPHILS # (AUTO) 12.7 /CMM (1.8-8.9); NEUTROPHILS % (AUTO) 80.5 % (43.0-81.0); PLATELET COUNT (AUTO) 153 /CMM (150-450); RED BLOOD CELL COUNT(AUTO) 2.79 MIL/uL (4.5-6.0); WHITE BLOOD COUNT (AUTO) 15.8 K/uL (4.3-11.0)
[2020-03-31 04:40] LABS: BILIRUBIN,TOTAL 0.5 mg/dL (0.2-1.0); CALCIUM, SERUM 8.5 mg/dL (8.5-10.1); CREATININE 2.8 mg/dL (0.6-1.3); MAGNESIUM 2.7 mg/dL (1.8-2.4); PHOSPHORUS 5.8 mg/dL (2.5-4.9); POTASSIUM 3.6 mmol/L (3.5-5.1); TOTAL PROTEIN, SERUM 5.9 g/dL (6.4-8.2)
--- NOTE | 2020-03-31 06:31 | NUR ---
RN NOTE NO ACUTE CHANGES OBSERVED OVERNIGHT. PT INTUBATED IN BED SEDATED IN SEMI VILLANUEVA'S POSITION. TOLERATING VENT SETTINGS WELL. RESPIRATIONS EVEN AND UNLABORED. VITAL SIGNS STABLE. SR ON THE BEDSIDE MONITOR. NO SIGNS OR SYMPTOMS OF PAIN OR DISCOMFORT. ORAL CARE AND SUCTIONING DONE. OGT PATENT AND IN PLACE VERIFIED BY AUSCULTATION AND ASPIRATION OF GASTRIC CONTENTS. 40ML OF GASTRIC RESIDUAL NOTED. OGT FLUSHED. WITH TUBE FEEDING RUNNING AT 50ML/HOUR ORDERED. HADDAD CATHETER IN PLACE DRAINING CLEAR YELLOW URINE. CVP MONITORING IN PLACE WITH READING OF 5. KADE PICC LINE INTACT. WITH DIPROVAN RUNNING AT 50 AND LEVO RUNNING AT 0.5 FOR BP SUPPORT. ALL DUE MEDICATIONS ADMINISTERED. ALL NEEDS MET AND ATTENDED TO. SAFETY MEASURES IN PLACE, BED IN LOWEST POSITION, WILL ENDORSE TO MORNING RN FOR CONTINUATION OF CARE.
--- NOTE | 2020-03-31 07:05 | NUR ---
RN NOTES RECEIVED PT ON BED , INTUBATED AND SEDATED. ON DIPRIVAN 50MCG/KG/MIN AT THIS TIME, IN SEMI VILLANUEVA'S POSITION. TOLERATING VENT SETTINGS WELL. VITAL SIGNS WNL. SR ON THE BEDSIDE MONITOR. OGT PATENT AND IN PLACE VERIFIED BY AUSCULTATION AND ASPIRATION OF GASTRIC CONTENTS. MINIMAL GASTRIC RESIDUAL NOTED. OGT FLUSHED. WITH TUBE FEEDING RUNNING AT 50ML/HOUR. HADDAD CATHETER IN PLACE DRAINING TO GRAVITY, R UPPER ARM PICC LINE SITE CLEAN, DRY AND INTACT, LEVO RUNNING AT 0.5 MCG/KG/MIN FOR BP SUPPORT, CONTACT AND DROPLET PRECAUTIONS IN PLACE. SR UP X3, CALL LIGHT WITHIN EASY REACH, BED LOCKED AND IN LOWEST POSITION, WILL CONTINUE TO MONITOR .
[2020-03-31] MEDS ORDERED: FUROSEMIDE 40 MG/4 ML VIAL IV ONE (08:00)
[2020-03-31] MEDS: MEROPENEM 1 G in IV NS 0.9% 100 ML IV SCH ×2 (08:33→20:14)
[2020-03-31] MEDS: INSULIN REGULAR, HUMAN 100 UNIT/ML 3 ML VIAL SQ PRN ×2 (08:36→12:01)
[2020-03-31] MEDS: ASPIRIN 81 MG TAB.CHEW PO SCH (08:37)
[2020-03-31] MEDS: PANTOPRAZOLE 40 MG VIAL IV SCH ×2 (08:37→20:14)
[2020-03-31] MEDS: BUMETANIDE INJ 0.25 MG/ML VIAL IV SCH ×2 (08:37→16:50)
[2020-03-31] MEDS: METOLAZONE 2.5 MG TABLET PO SCH (08:37)
[2020-03-31] MEDS: CLOPIDOGREL BISULFATE 75 MG TABLET PO SCH (08:37)
[2020-03-31] MEDS: AMIODARONE HCL 200 MG TABLET PO SCH ×2 (08:38→20:18)
[2020-03-31] MEDS: TAMSULOSIN 0.4 MG CAP.SR.24H PO SCH (08:38)
[2020-03-31] MEDS: BLOOD SUGAR DIAGNOSTIC 1 EACH STRIP VI SCH ×4 (08:38→21:07)
[2020-03-31] MEDS: HEPARIN SODIUM, PORCINE 5000 UNITS/1 ML VIAL SQ SCH ×2 (08:39→21:43)
[2020-03-31] MEDS: CLOTRIMAZOLE 1% 15 GM TUBE TP SCH ×2 (08:40→16:51)
[2020-03-31] MEDS: Z GUARD REMEDY 2 OZ OINT TP SCH (08:41)
[2020-03-31 09:55] LABS: ABG BASE EXCESS 12.5 mmol/L; ABG OXYGEN SATURATION 94.7 % (92.0-98.5); ABG PCO2 70.3 mmHg (35.0-45.0); ABG PO2 85.9 mmHg (75.0-100.0); AaDO2 118.5 mmHg; COHb 1.2 % (0.5-1.5); MetHb 0.8 % (0.0-1.5); O2Hb 92.8 % (94.0-97.0); SITE, ABG Right Brachial; VENT MODE, BG AC 16 500 +5 40%
--- NOTE | 2020-03-31 11:00 | NUR ---
RN NOTES PT'S SON REQUESTING TO TALK TO Tricia WILLETT. MD AYOUB.
[2020-03-31] MEDS: GLUCERNA 1.2 1,000 ML BOTTLE NG PRN (11:43)
--- NOTE | 2020-03-31 14:00 | NUR ---
RN NOTES VSS STABLE ,ET TUBE SUCTIONING DONE, CONTINUE TO MONITOR .
[2020-03-31] MEDS: MICAFUNGIN SODIUM 100 MG in IV NS 0.9% 100 ML IV SCH (15:30)
--- NOTE | 2020-03-31 18:11 | NUR ---
RN NOTES PT REMAINS INTUBATED AND SEDATED ON DIPRIVAN AT 45MCG/KG/MIN AND LEVOPHED AT .6 MCH/KG/MIN FOR BP SUPPORT, NO RESPIRATORY DISTRESS NOTED VSS STABLE, TOLERATING TF WELL, AT 50 CC/HR , SR UP x3, CALL LIGHT WITHIN EASY REACH, BED LOCKED AND IN LOWEST POSITION, WILL ENDORSE TO IT APPLICATIONS ANALYST NURSE FOR CONTINUITY OF CARE.
--- NOTE | 2020-03-31 19:30 | NUR ---
RN OPENING NOTE RECEIVED PT IN BED, SEDATED, NO S/SX OF ACUTE DISTRESS AT THIS TIME. PATIENT'S BREATHING IS EVEN AND UNLABORED. PATIENT ON ET TUBE .11/23 CONNECTED TO MECHANICAL VENTILATOR WITH SETTINGS PRESCRIBED, TOLERATING WELL, SATURATING AT 99%. NOTED KADE 3L PICC LINE, PATENT AND FLUSHING WELL, WITH NS REGULATED AT TKO AND CVP MONITORING IN PLACE WITH READING OF 5, DIPRIVAN CURRENTLY AT 45 MCG/KG/MIN, AND LEVOPHED AT 0.6 MCG/KG/MIN ,NO S/S OF INFECTION NOTED. NOTED OGT INTACT, MINIMAL RESIDUAL NOTED, PLACEMENT CHECKED, BACKFLOW OF GASTRIC CONTENTS NOTED ON ASPIRATION, GURLING SOUND NOTED ON AUSCULTATION, TUBE FEEDING OF GLUCERNA 1.2 REGULATED AT 50 ML/HR. HADDAD CATH CONNECTED TO URINE BAG IN PLACE, DRAINING TO A CLEAR YELLOWISH URINE. SAFETY MEASURES IMPLEMENTED PER PROTOCOL. PATIENT BED ALARM IS ON. HEAD OF BED ELEVATED. BED IS LOCKED, IN LOWEST POSITION AND SIDE RAILS UP. CALL LIGHT WITHIN REACH OF THE PATIENT. WILL CONTINUE TO MONITOR AND REASSESS FOR ANY CHANGES.
[2020-03-31] MEDS: SENNOSIDES 8.6 MG TABLET PO SCH (21:02)
[2020-03-31] MEDS: *INSULIN REGULAR(HUMULIN R)HUM 100 UNIT/ML VIAL SQ PRN (21:44)
[2020-03-31] MEDS: INSULIN GLARGINE, 100 UNIT/ML CARTRIDGE SQ SCH (21:46)
[2020-04-01] VITALS (95 sets, daily range): BP systolic 50–134; BP diastolic 31–82
[2020-04-01] MEDS: PROPOFOL 100 ML IV PRN ×4 (00:39→18:52)
--- NOTE | 2020-04-01 02:37 | NUR ---
RT NOTE Pt rec'd orally intubated via ETT sz #7.5 secured @ 25cm at the lipline. Pt on [facility] vent on AC mode settings as charted. Pt shows no signs of resp distress or sob. Pt sx'd for thick mod amount of pale yellow secretions. Alarms are set and audible. Vent plugged into red outlet. ambu bag bedside. Will continue to monitor closely. Addendum: 04/01/20 at 0239 by WANDER SUAZO RT Amended: Links added.
[2020-04-01] MEDS: NOREPINEPHRINE 32 MG in IV NS 0.9% 218 ML IV PRN ×2 (05:01→13:42)
[2020-04-01 05:19] LABS: CALCIUM, SERUM 8.5 mg/dL (8.5-10.1); CREATININE 3.2 mg/dL (0.6-1.3); POTASSIUM 3.9 mmol/L (3.5-5.1)
[2020-04-01 05:20] LABS: BASOPHILS # (AUTO) 0.2 /CMM (0.0-0.2); BASOPHILS % (AUTO) 1.3 % (0.0-2.0); EOSINOPHILS % (AUTO) 7.7 % (0.0-6.0); HEMATOCRIT 24 % (39-51); HEMOGLOBIN 7.6 g/dL (13.5-17.5); LYMPHOCYTES # (AUTO) 1.4 /CMM (0.8-4.8); LYMPHOCYTES % (AUTO) 8.6 % (20.0-44.0); MEAN CORPUSCULAR HGB CONC 32 g/dl (31.0-36.0); MEAN CORPUSCULAR VOLUME 97 fL (80-96); MONOCYTES # (AUTO) 0.7 /CMM (0.1-1.30); MONOCYTES % (AUTO) 4.6 % (2.0-12.0); NEUTROPHILS # (AUTO) 12.6 /CMM (1.8-8.9); NEUTROPHILS % (AUTO) 77.8 % (43.0-81.0); PLATELET COUNT (AUTO) 145 /CMM (150-450); RED BLOOD CELL COUNT(AUTO) 2.47 MIL/uL (4.5-6.0); WHITE BLOOD COUNT (AUTO) 16.1 K/uL (4.3-11.0)
--- NOTE | 2020-04-01 07:00 | NUR ---
RN CLOSING NOTE PATIENT REMAINS IN ROOM, SEDATED. NO SIGNS OF RESPIRATORY DISTRESS. DIPRIVAN REGULATED AT 45 MCG/KG/MIN, LEVOPHED AT 1 MCG/KG/MIN, AND NS AT TKO VIA KADE PICC LINE. GTUBE STILL IN PLACE, PLACEMENT CHECKED, TUBE FEEDING OF GLUCERNA RUNNING AT 50 ML/HR, TOLERATING WELL, ASPIRATION PRECAUTIONS MAINTAINED. SAFETY MEASURES IMPLEMENTED, BED IN LOWEST POSITION, LOCKED, SIDE RAILS UP, CALL LIGHT WITHIN REACH. ALL NEEDS AND ORDERS ADDRESSED DURING THE SHIFT. ALL DUE MEDS GIVEN ORDERED & SCHEDULED. .PATIENT KEPT CLEAN AND COMFORTABLE WITHIN THE SHIFT. ENDORSED TO AMANDA HIGUERA FOR CONTINUATION OF CARE.
--- NOTE | 2020-04-01 07:05 | NUR ---
RN NOTES RECEIVED PT ON BED , INTUBATED AND SEDATED. ON DIPRIVAN 45 MCG/KG/MIN AT THIS TIME, IN SEMI VILLANUEVA'S POSITION. TOLERATING VENT SETTINGS WELL. VITAL SIGNS WNL. SR ON THE BEDSIDE MONITOR. OGT PATENT AND IN PLACE VERIFIED BY AUSCULTATION AND ASPIRATION OF GASTRIC CONTENTS. MINIMAL GASTRIC RESIDUAL NOTED. OGT FLUSHED. WITH TUBE FEEDING RUNNING AT 50ML/HOUR. HADDAD CATHETER IN PLACE DRAINING TO GRAVITY, R UPPER ARM PICC LINE SITE CLEAN, DRY AND INTACT, LEVO RUNNING AT 1 MCG/KG/MIN FOR BP SUPPORT, CONTACT AND DROPLET PRECAUTIONS IN PLACE. SR UP X3, CALL LIGHT WITHIN EASY REACH, BED LOCKED AND IN LOWEST POSITION, WILL CONTINUE TO MONITOR .
[2020-04-01] MEDS: BLOOD SUGAR DIAGNOSTIC 1 EACH STRIP VI SCH ×4 (07:09→22:02)
[2020-04-01] MEDS: INSULIN REGULAR, HUMAN 100 UNIT/ML 3 ML VIAL SQ PRN ×3 (07:10→17:53)
[2020-04-01] MEDS: MEROPENEM 1 G in IV NS 0.9% 100 ML IV SCH (08:11)
[2020-04-01] MEDS: ASPIRIN 81 MG TAB.CHEW PO SCH (08:16)
[2020-04-01] MEDS: PANTOPRAZOLE 40 MG VIAL IV SCH ×2 (08:16→21:19)
[2020-04-01] MEDS: AMIODARONE HCL 200 MG TABLET PO SCH ×2 (08:16→21:20)
[2020-04-01] MEDS: CLOPIDOGREL BISULFATE 75 MG TABLET PO SCH (08:16)
[2020-04-01] MEDS: TAMSULOSIN 0.4 MG CAP.SR.24H PO SCH (08:16)
[2020-04-01] MEDS: CLOTRIMAZOLE 1% 15 GM TUBE TP SCH ×2 (08:17→16:15)
[2020-04-01] MEDS: Z GUARD REMEDY 2 OZ OINT TP SCH (08:17)
[2020-04-01] MEDS: HEPARIN SODIUM, PORCINE 5000 UNITS/1 ML VIAL SQ SCH ×2 (09:24→21:21)
[2020-04-01] MEDS: GLUCERNA 1.2 1,000 ML BOTTLE NG PRN (10:09)
[2020-04-01 11:27] LABS: APPEARANCE,URINE CLEAR (CLEAR); BILIRUBIN,URINE NEGATIVE (NEGATIVE); BLOOD, URINE MODERATE Ery/uL (NEGATIVE); COLOR,URINE YELLOW (YELLOW); KETONES,URINE NEGATIVE (NEGATIVE); LEUKOCYTE ESTERASE ,URINE NEGATIVE (NEGATIVE); NITRITE, URINE NEGATIVE (NEGATIVE); PROTEIN,URINE TRACE mg/dl (NEGATIVE); UGLUCOSE NEGATIVE (NEGATIVE); UROBILINOGEN,URINE 0.2 EU/dL (0.2)
--- NOTE | 2020-04-01 12:00 | NUR ---
RN NOTES FACE TIME DONE WITH PT AND HIS SON , PER FAMILY REQUEST .
[2020-04-01 12:51] LABS: BACTERIA,URINE Few /HPF (None Seen); SQUAMOUS EPITHELIAL CELL,UR Few /HPF (None Seen); WBC,URINE 0-1 /HPF (0-3)
--- NOTE | 2020-04-01 13:00 | NUR ---
RN NOTES ET TUBE SUCTIONING DONE, VSS STABLE, CONTINUE TO MONITOR .
--- NOTE | 2020-04-01 14:00 | NUR ---
RN NOTES NO TF RESIDUAL NOTED, VSS STABLE , CONTINUE TO MONITOR .
[2020-04-01] MEDS: BUMETANIDE INJ 0.25 MG/ML VIAL IV SCH (16:14)
--- NOTE | 2020-04-01 18:00 | NUR ---
RN NOTES PT REMAINS INTUBATED AND SEDATED , ON DIPRIVAN AT 25 MCG/KG/MIN , LEVO AT .3 MCG/KG/MIN RUNNING FOR BP SUPPORT, TOLERATING VENT SETTING , FIO2 AT 40% WELL, O2 SAT WNL, R UPPER ARM PICC LINE SITE CLEAN, DRY INTACT, NO SIGNIFICANT CHANGES NOTED ON THIS SHIFT ,SR UP X3, CALL LIGHT WITHIN EASY REACH, BED LOCKED AND IN LOWEST POSITION, WILL ENDORSE TO MACHINE SPRING FORMER NURSE FOR CONTINUITY OF CARE .
--- NOTE | 2020-04-01 19:10 | NUR ---
LINE LEADER OPENING NOTES: Rec'd pt in bed, intubated 7.5/27cm at the lip. On mechanical ventilation tolerating settings well. No SOB or respiratory distress noted. Breathing even and unlabored. SR on tele monitor. OGT patent and placement verified by auscultation and aspiration of gastric contents. Minimal residuals noted. Glucerna running at 50ml/hr. Tolerating feeding well. KADE PICC line patent and flushed. Dressing c/d/i. Levo infusing at 0.3mcg/kg/min. Will titrate per protocol. Diprivan infusing at 25mcg/kg/min. CVP monitoring in place. Manzo catheter in place, patent and draining urine via gravity. Safety measures in place. Will continue to monitor.
--- NOTE | 2020-04-01 19:36 | NUR ---
RN NOTE: Pt noted to be desating w/ SpO2 93-85%. Suctioned pt and changed pulse ox, O2 still low. RT paged. RT increased FiO2 to 60%. Will continue to monitor.
--- NOTE | 2020-04-01 20:45 | NUR ---
RECEIVED PT INTUBATED 7.5 ETT SECURED AT 25CM LIP LINE. PT TOLERATING VENT SETTINGS. SX'D SML AMT OF THICK NGUYEN SECRETIONS. VENT ALARMS SET AND AUDIBLE. AMBU BAG AT BEDSIDE. VENT PLUGGED INTO RED OUTLET. WILL CONTINUE TO MONITOR. Addendum: 04/01/20 at 204 by JOSE ARMANDO WEBBER RT Amended: Links added.
[2020-04-01] MEDS: SENNOSIDES 8.6 MG TABLET PO SCH (21:19)
[2020-04-01] MEDS: INSULIN GLARGINE, 100 UNIT/ML CARTRIDGE SQ SCH (21:59)
[2020-04-01] MEDS: *INSULIN REGULAR(HUMULIN R)HUM 100 UNIT/ML VIAL SQ PRN (22:01)
--- NOTE | 2020-04-01 23:41 | NUR ---
RN NOTE: RT decreased FiO2 to 50%. O2 sat WNL. Will continue to monitor.
[2020-04-02] VITALS (93 sets, daily range): BP systolic 68–119; BP diastolic 43–72
[2020-04-02] MEDS: GLUCERNA 1.2 1,000 ML BOTTLE NG PRN ×2 (03:05→20:22)
[2020-04-02] MEDS: PROPOFOL 100 ML IV PRN ×3 (03:21→17:26)
--- NOTE | 2020-04-02 03:51 | NUR ---
RN NOTE: RT titrated FiO2 down to 40%. O2 sat WNL. Will continue to monitor.
[2020-04-02 05:22] LABS: BASOPHILS # (AUTO) 0.1 /CMM (0.0-0.2); EOSINOPHILS % (AUTO) 8.3 % (0.0-6.0); HEMATOCRIT 24 % (39-51); HEMOGLOBIN 7.8 g/dL (13.5-17.5); LYMPHOCYTES # (AUTO) 1.2 /CMM (0.8-4.8); LYMPHOCYTES % (AUTO) 9.7 % (20.0-44.0); MEAN CORPUSCULAR HGB CONC 32 g/dl (31.0-36.0); MEAN CORPUSCULAR VOLUME 96 fL (80-96); MONOCYTES # (AUTO) 0.7 /CMM (0.1-1.30); MONOCYTES % (AUTO) 5.3 % (2.0-12.0); NEUTROPHILS # (AUTO) 9.5 /CMM (1.8-8.9); NEUTROPHILS % (AUTO) 75.7 % (43.0-81.0); PLATELET COUNT (AUTO) 120 /CMM (150-450); RED BLOOD CELL COUNT(AUTO) 2.53 MIL/uL (4.5-6.0); WHITE BLOOD COUNT (AUTO) 12.5 K/uL (4.3-11.0)
[2020-04-02 05:24] LABS: CALCIUM, SERUM 8.2 mg/dL (8.5-10.1); CREATININE 3.5 mg/dL (0.6-1.3); POTASSIUM 3.8 mmol/L (3.5-5.1)
--- NOTE | 2020-04-02 06:59 | NUR ---
DIRECTOR OF PSYCHOLOGY CLOSING NOTES: Pt remains stable throughout shift. Remains intubated on mechanical ventilation tolerating settings well. No SOB or resp distress noted. Breathing even and unlabored. SR on tele monitor. OGT patent and flushed, w/ Glucerna running at 50ml/hr. KADE PICC line w/ Diprivan infusing at 25mcg/kg/min and Levo infusing at 0.2mcg/kg/min. Manzo in place patent and draining urine via gravity. Kept clean/dry. All meds given as ordered. Safety measures in place. Will endorse to oncoming nurse for KELSI.
--- NOTE | 2020-04-02 07:00 | NUR ---
RN NOTES RECEIVED PT ON BED , INTUBATED AND SEDATED. ON DIPRIVAN 25 MCG/KG/MIN AT THIS TIME, IN SEMI VILLANUEVA'S POSITION. TOLERATING VENT SETTINGS WELL. VITAL SIGNS WNL. SR ON THE BEDSIDE MONITOR. OGT PATENT AND IN PLACE VERIFIED BY AUSCULTATION AND ASPIRATION OF GASTRIC CONTENTS. MINIMAL GASTRIC RESIDUAL NOTED. OGT FLUSHED. WITH TUBE FEEDING RUNNING AT 50ML/HOUR. HADDAD CATHETER IN PLACE DRAINING TO GRAVITY, R UPPER ARM PICC LINE SITE CLEAN, DRY AND INTACT, LEVO RUNNING AT .2 MCG/KG/MIN FOR BP SUPPORT, CONTACT AND DROPLET PRECAUTIONS IN PLACE. SR UP X3, CALL LIGHT WITHIN EASY REACH, BED LOCKED AND IN LOWEST POSITION, WILL CONTINUE TO MONITOR .
[2020-04-02] MEDS: AMIODARONE HCL 200 MG TABLET PO SCH ×2 (08:11→21:21)
[2020-04-02] MEDS: CLOPIDOGREL BISULFATE 75 MG TABLET PO SCH (08:11)
[2020-04-02] MEDS: PANTOPRAZOLE 40 MG VIAL IV SCH ×2 (08:11→21:20)
[2020-04-02] MEDS: BUMETANIDE INJ 0.25 MG/ML VIAL IV SCH ×2 (08:11→16:19)
[2020-04-02] MEDS: ASPIRIN 81 MG TAB.CHEW PO SCH (08:11)
[2020-04-02] MEDS: TAMSULOSIN 0.4 MG CAP.SR.24H PO SCH (08:11)
[2020-04-02] MEDS: CLOTRIMAZOLE 1% 15 GM TUBE TP SCH ×2 (08:12→16:19)
[2020-04-02] MEDS: Z GUARD REMEDY 2 OZ OINT TP SCH (08:12)
[2020-04-02] MEDS: INSULIN REGULAR, HUMAN 100 UNIT/ML 3 ML VIAL SQ PRN ×2 (08:14→17:14)
[2020-04-02] MEDS: BLOOD SUGAR DIAGNOSTIC 1 EACH STRIP VI SCH ×4 (08:14→21:50)
[2020-04-02] MEDS: NOREPINEPHRINE 32 MG in IV NS 0.9% 218 ML IV PRN ×2 (09:12→21:58)
[2020-04-02] MEDS: HEPARIN SODIUM, PORCINE 5000 UNITS/1 ML VIAL SQ SCH ×2 (09:21→21:22)
[2020-04-02 09:24] LABS: ABG BASE EXCESS 8.4 mmol/L; ABG OXYGEN SATURATION 86.8 % (92.0-98.5); ABG PCO2 56.1 mmHg (35.0-45.0); ABG PH 7.403 (7.350-7.450); ABG PO2 55.4 mmHg (75.0-100.0); AaDO2 165.3 mmHg; COHb 1.8 % (0.5-1.5); MetHb 0.3 % (0.0-1.5); SITE, ABG Left Radial; VENT MODE, BG AC 18 500 40% +5
[2020-04-02] MEDS ORDERED: FUROSEMIDE 40 MG/4 ML VIAL IV ONE (09:30)
--- NOTE | 2020-04-02 12:00 | NUR ---
RN NOTES ET TUBE SUCTIONING DONE, VSS STABLE, CONTINUE TO MONITOR .
--- NOTE | 2020-04-02 15:00 | NUR ---
RN NOTES ET TUBE SUCTIONING AND MOUTH CARE DONE, BP STABLE, CONTINUE TO MONITOR .
--- NOTE | 2020-04-02 18:20 | NUR ---
RN NOTES PT REMAINS INTUBATED AND SEDATED , ON DIPRIVAN AT 25 MCG/KG/MIN , LEVO AT .3 MCG/KG/MIN RUNNING FOR BP SUPPORT. TOLERATING VENT SETTING , FIO2 AT 45% AT THIS TIME O2 SAT WNL, R UPPER ARM PICC LINE SITE CLEAN, DRY INTACT, NO SIGNIFICANT CHANGES NOTED ON THIS SHIFT ,SR UP X3, CALL LIGHT WITHIN EASY REACH, BED LOCKED AND IN LOWEST POSITION, WILL ENDORSE TO RESEARCH PHYSICIST NURSE FOR CONTINUITY OF CARE .
--- NOTE | 2020-04-02 19:20 | NUR ---
VAC PRESS OPERATOR NOTE RECEIVED PATIENT IN BED RESTING WITH HOB ELEVATED. PATIENT IS 64 Y/O MALE WITH DX OF RESPIRATORY FAILURE PNEUMONIA. FULL CODE. ON ISOLATION FOR COVID POSITIVE AND ESBL IN URINE. PATIENT IS VENT DEPENDANT. BREATHING IS EVEN AND UNLABORED, O2 SAT IS 96%. FIO2 IS 45%, PEEP OF 5. IV SITE ON KADE PICC LINE IS CLEAN, DRY, AND PATENT. PROPOFOL IS RUNNING AT 25 MCG/KG/MIN. PATIENT IS SEDATED. PATIENT IS ON LEVOPHED DRIP, 32 MG RUNNING AT 0.3 MCG/KG/MIN. VITALS ARE WNL AT THIS TIME. PATIENT IS ON HADDAD CATHETER, URINE IS CLEAR AND YELLOW IN COLOR. ON GT FEEDING GLUCERNA RUNNING AT 50 ML/HR, WITH 60 ML RESIDUAL NOTED. INTERMITTENT CD PUMPS APPLIED ON BILATERAL LOWER LEGS. PATIENT IS IN NO APPARENT DISTRESS NOTED AT THIS TIME. BED IS LOWERED AND LOCKED FOR SAFETY. WILL CONTINUE TO MONITOR.
[2020-04-02] MEDS: SENNOSIDES 8.6 MG TABLET PO SCH (21:20)
[2020-04-02] MEDS: *INSULIN REGULAR(HUMULIN R)HUM 100 UNIT/ML VIAL SQ PRN ×2 (21:52→22:28)
[2020-04-02] MEDS ORDERED: INSULIN GLARGINE, 100 UNIT/ML CARTRIDGE SQ SCH (22:00)
[2020-04-03] VITALS (89 sets, daily range): BP systolic 48–118; BP diastolic 32–89
--- NOTE | 2020-04-03 01:25 | NUR ---
INTAKE COORDINATOR NOTE PATIENT TOLERATED BED BATH WELL AT THIS TIME. NOTED X1 BM. WOUND CARE RENDERED. CONTINUE TO MONITOR.
--- NOTE | 2020-04-03 01:30 | NUR ---
LINE DIRECTOR NOTE WOUND PICTURE TAKEN AND PLACED IN PATIENT'S CHART.
[2020-04-03] MEDS: PROPOFOL 100 ML IV PRN ×5 (03:14→23:14)
[2020-04-03 05:08] LABS: BASOPHILS # (AUTO) 0.1 /CMM (0.0-0.2); BASOPHILS % (AUTO) 1.4 % (0.0-2.0); EOSINOPHILS % (AUTO) 6.2 % (0.0-6.0); HEMATOCRIT 24 % (39-51); HEMOGLOBIN 7.8 g/dL (13.5-17.5); LYMPHOCYTES # (AUTO) 0.9 /CMM (0.8-4.8); LYMPHOCYTES % (AUTO) 9.6 % (20.0-44.0); MEAN CORPUSCULAR HGB CONC 33 g/dl (31.0-36.0); MEAN CORPUSCULAR VOLUME 98 fL (80-96); MONOCYTES # (AUTO) 0.7 /CMM (0.1-1.30); MONOCYTES % (AUTO) 7.1 % (2.0-12.0); NEUTROPHILS # (AUTO) 7.1 /CMM (1.8-8.9); NEUTROPHILS % (AUTO) 75.7 % (43.0-81.0); PLATELET COUNT (AUTO) 112 /CMM (150-450); RED BLOOD CELL COUNT(AUTO) 2.43 MIL/uL (4.5-6.0); WHITE BLOOD COUNT (AUTO) 9.4 K/uL (4.3-11.0)
[2020-04-03 05:22] LABS: CALCIUM, SERUM 8.1 mg/dL (8.5-10.1); CREATININE 3.8 mg/dL (0.6-1.3); POTASSIUM 3.6 mmol/L (3.5-5.1)
--- NOTE | 2020-04-03 06:58 | NUR ---
PUBLIC RELATIONS DIRECTOR NOTE PATIENT REMAINED STABLE THROUGHOUT THE NIGHT. NO SIGNIFICANT CHANGES NOTED. DUE MEDS GIVEN ORDERED AND TOLERATED WELL. PATIENT KEPT ON LEVOPHED 0.3 MCG/KG/MIN. SBP KEPT GREATER THAN 90. KEPT ON PROPOFOL AT 25 MCG/KG/MIN, RESPONSIVE TO LIGHT PAIN. PATIENT KEPT CLEAN, DRY, AND COMFORTABLE. WOUND CARE. REPOSITIONED Q2H. WILL ENDORSE TO AM SHIFT RN FOR CONTINUATION OF CARE.
[2020-04-03] MEDS: NOREPINEPHRINE 32 MG in IV NS 0.9% 218 ML IV PRN ×2 (07:40→20:59)
--- NOTE | 2020-04-03 07:45 | NUR ---
RN OPENING NOTES: RECEIVED PT, intubated AT 7.5/27cm AT THE LIP. ON MECHANICAL VENTILATION TOLERATED WELL. NO SOB OR RESPIRATORY DISTRESS NOTED.SR ON THE TELE MONITOR . OGT PATENT PLACEMENT,AND PLACEMENT IS VERIFIED BY AUSCULTATION AND ASPIRATION OF GASTRIC CONTENT. Minimal residuals NOTED GLUCERNA RUNNING AT 50 ML/HR .TOLERATING FEEDING WELL. KADE PICC LINE IS PATENT, FLUSHED AND INTACT NO S/S OF INFILTRATION OR INFECTION.DRESSING IS C/D/I.LEVO IS INFUSING AT 0.3 MCG/KG/MIN.DIPRIVAN INFUSING AT 25 MCG/KG/MIN . CVP MONITORING AND IN PLACE . HADDAD CATH PATIENT AND DRAINING URINE VIA GRAVITY. SAFETY MEASUREMENTS ARE PLACED BY HOSPITAL POLICY. CALL LIGHT WITHIN THE REACH. BED IS IN THE LOWEST POSITION SIDE RAILS X2. WILL CONTINUE TO MONITOR.
[2020-04-03] MEDS: BLOOD SUGAR DIAGNOSTIC 1 EACH STRIP VI SCH ×4 (08:05→22:52)
[2020-04-03] MEDS: CLOTRIMAZOLE 1% 15 GM TUBE TP SCH ×2 (08:07→17:28)
[2020-04-03] MEDS: Z GUARD REMEDY 2 OZ OINT TP SCH (08:08)
[2020-04-03] MEDS: TAMSULOSIN 0.4 MG CAP.SR.24H PO SCH (08:16)
[2020-04-03] MEDS: PANTOPRAZOLE 40 MG VIAL IV SCH ×2 (08:16→21:12)
[2020-04-03] MEDS: BUMETANIDE INJ 0.25 MG/ML VIAL IV SCH (08:17)
[2020-04-03] MEDS: ASPIRIN 81 MG TAB.CHEW PO SCH (08:17)
[2020-04-03] MEDS: CLOPIDOGREL BISULFATE 75 MG TABLET PO SCH (08:17)
[2020-04-03] MEDS: AMIODARONE HCL 200 MG TABLET PO SCH ×2 (08:18→21:08)
[2020-04-03] MEDS: INSULIN REGULAR, HUMAN 100 UNIT/ML 3 ML VIAL SQ PRN ×3 (08:19→22:55)
[2020-04-03] MEDS: HEPARIN SODIUM, PORCINE 5000 UNITS/1 ML VIAL SQ SCH ×2 (08:46→21:06)
--- NOTE | 2020-04-03 09:00 | NUR ---
RN NOTES PER DR JOSHI ORDER GOING TO DO SEDATION VACATION.
--- NOTE | 2020-04-03 10:00 | NUR ---
RN NOTE PT HAS RESPIRATORY EFFORT. PER DR JOSHI INCREASE PROPOFOL TO 50 MCG/KG/MIN
--- NOTE | 2020-04-03 17:22 | NUR ---
AIRSET MOLDER NOTES RECEIVED REPORT FROM ERYN FOR KELSI.
[2020-04-03] MEDS: GLUCERNA 1.2 1,000 ML BOTTLE NG PRN (18:21)
--- NOTE | 2020-04-03 18:57 | NUR ---
RN NOTES ALL NEEDS MET. PATIENT KEPT CLEAN. PM CARE DONE EARLIER. ONGOING LEVOPHED AT 0.5 MCG, PROPOFOL AT [address] NO OTHER SIGNIFICANT CHANGE SINCE REPORT. WILL ENDORSE TO NEXT SHIFT.
--- NOTE | 2020-04-03 19:40 | NUR ---
RN NOTES RECEIVED PT SEDATED WTIH DIPRIVAN, ORALLY INTUBATED WITH ETT 7.5 AND 27 CM AT LIP WITH VENT SETTING AC 16 TV 500 FIO2 45% PEEP 5 SR ON TELE MONITOR. NO ACUTE RESPIRATORY DISTRESS. OGTF TOLERATED WELL WITH HOB ELEVATED. NO RESIDUAL. IV SITE ON KADE PICC LINE INTACT AND PATENT RUNNING WITH DIPRIVAN AND LEVOPHES TITRATED ORDERED. ON CVP MONITOR LEVELD AND ZEROED. TURN AND REPOSITION , OFFLOADED EXTT WITH PILLOWS. KEPT PT CLEAN AND DRY. WILL CONTINUE TO MONITOR.
--- NOTE | 2020-04-03 20:13 | NUR ---
Spoke with son Sukhjinder [phone], states he is a transport truck driver and will be available to talk with a physician only at 5am or after 4:30pm to discuss plan of care. Family would like to talk to MD regarding options and prognosis so family can make their decision with regards to patient care directives. Family also want patient if stable be discharge closer to [facility]. Addendum: 04/03/20 at 2014 by RAMONITA LOPEZ RN Amended: Links added.
[2020-04-03] MEDS: SENNOSIDES 8.6 MG TABLET PO SCH (21:07)
[2020-04-03] MEDS: INSULIN GLARGINE, 100 UNIT/ML CARTRIDGE SQ SCH (22:54)
[2020-04-04] VITALS (92 sets, daily range): BP systolic 65–121; BP diastolic 48–73
[2020-04-04 04:56] LABS: BASOPHILS # (AUTO) 0.1 /CMM (0.0-0.2); HEMATOCRIT 25 % (39-51); LYMPHOCYTES % (AUTO) 11.2 % (20.0-44.0); MEAN CORPUSCULAR HGB CONC 33 g/dl (31.0-36.0); MEAN CORPUSCULAR VOLUME 97 fL (80-96); MONOCYTES # (AUTO) 0.6 /CMM (0.1-1.30); MONOCYTES % (AUTO) 6.2 % (2.0-12.0); NEUTROPHILS # (AUTO) 6.7 /CMM (1.8-8.9); NEUTROPHILS % (AUTO) 73.6 % (43.0-81.0); PLATELET COUNT (AUTO) 119 /CMM (150-450); RED BLOOD CELL COUNT(AUTO) 2.54 MIL/uL (4.5-6.0); WHITE BLOOD COUNT (AUTO) 9.1 K/uL (4.3-11.0)
[2020-04-04 05:16] LABS: BILIRUBIN,TOTAL 0.4 mg/dL (0.2-1.0); CALCIUM, SERUM 8.1 mg/dL (8.5-10.1); CREATININE 3.7 mg/dL (0.6-1.3); MAGNESIUM 3.6 mg/dL (1.8-2.4); POTASSIUM 3.6 mmol/L (3.5-5.1); TOTAL PROTEIN, SERUM 6.3 g/dL (6.4-8.2)
[2020-04-04] MEDS: PROPOFOL 100 ML IV PRN ×4 (05:23→18:09)
[2020-04-04] MEDS: IV NS 0.9% 250 ML IV PRN (05:27)
[2020-04-04 05:37] LABS: PHOSPHORUS 8.5 mg/dL (2.5-4.9)
--- NOTE | 2020-04-04 06:00 | NUR ---
RN NOTES PATIENT REMAINED INTUBATED ON THE SAME SETTING FIO2 45% NO SIGNIFICANT CHANGES THROUGHOUT THE SHIFT. AFEBRILE. VS CLOSELY MONITOR ON LEVOPHED TITRATED ORDERED. WELL DIPRIVAN. IV SITE INTACT AND PATENT CVP KEPT IN PLACED LEVELED AND ZEROED. INCONTINENT CARE RENDERED. F/C DRAINED VIA GRAVITY. TURNED AND REPOSITIONED Q2H AND PRN. KEPT PT CLEAN AND DRY. WILL ENDORSED CONTINUITY OF CARE TO AM NURSE.
--- NOTE | 2020-04-04 07:00 | NUR ---
RN NOTES: RECEIVED PT ON BED, INTUBATED AND SEDATED , AT 7.5/27cm AT THE LIP. ON MECHANICAL VENTILATION TOLERATED WELL. NO SOB OR RESPIRATORY DISTRESS NOTED.SR ON THE TELE, HR IN 70'S MONITOR . OGT PATENT PLACEMENT,AND PLACEMENT IS VERIFIED BY AUSCULTATION AND ASPIRATION OF GASTRIC CONTENT. NO RESIDUAL NOTED, GLUCERNA RUNNING AT 50 ML/HR .TOLERATING FEEDING WELL. R UA PICC LINE SITE CLEAN, DRY AND INTACT, NO S/S OF INFILTRATION OR INFECTION.DRESSING IS C/D/I.LEVO IS INFUSING AT 0.4MCG/KG/MIN.DIPRIVAN INFUSING AT 45 MCG/KG/MIN . CVP MONITORING AND IN PLACE . HADDAD CATH PATIENT AND DRAINING URINE VIA GRAVITY. SR UP x3, CALL LIGHT WITHIN THE REACH. BED LOCKED AND IN LOWEST POSITION , WILL CONTINUE TO MONITOR.
[2020-04-04] MEDS: BLOOD SUGAR DIAGNOSTIC 1 EACH STRIP VI SCH ×4 (07:44→22:17)
--- NOTE | 2020-04-04 07:55 | NUR ---
RT PATIENT REC'D ORALLY INTUBATED ON [facility] VENT WITH ORDERED SETTINGS. ALARMS CHECKED + AUDIBLE. TRUMANU BAG AT HOB. Addendum: 04/04/20 at 0846 by ZAKIA BRITO RT Amended: Links added.
--- NOTE | 2020-04-04 08:00 | NUR ---
RN NOTES NO SEDATION VACATION PER DR JOSHI TODAY .CONTINUE TO MONITOR.
[2020-04-04] MEDS: TAMSULOSIN 0.4 MG CAP.SR.24H PO SCH (08:14)
[2020-04-04] MEDS: PANTOPRAZOLE 40 MG VIAL IV SCH ×2 (08:14→21:36)
[2020-04-04] MEDS: ASPIRIN 81 MG TAB.CHEW PO SCH (08:14)
[2020-04-04] MEDS: AMIODARONE HCL 200 MG TABLET PO SCH (08:14)
[2020-04-04] MEDS: CLOPIDOGREL BISULFATE 75 MG TABLET PO SCH (08:14)
[2020-04-04] MEDS: CLOTRIMAZOLE 1% 15 GM TUBE TP SCH ×2 (08:16→17:06)
[2020-04-04] MEDS: Z GUARD REMEDY 2 OZ OINT TP SCH (08:16)
[2020-04-04] MEDS: HEPARIN SODIUM, PORCINE 5000 UNITS/1 ML VIAL SQ SCH (09:00)
[2020-04-04] MEDS: NOREPINEPHRINE 32 MG in IV NS 0.9% 218 ML IV PRN ×2 (09:20→17:58)
--- NOTE | 2020-04-04 10:00 | NUR ---
RN NOTES DR TAMIE VILLANUEVAFED REGARDING PLT =[id number] , HEPARIN D/FELICITY PER MD ORDER .
[2020-04-04] MEDS: INSULIN REGULAR, HUMAN 100 UNIT/ML 3 ML VIAL SQ PRN ×3 (12:18→22:16)
[2020-04-04] MEDS ORDERED: NEPRO 1,000 ML BOTTLE GT PRN (13:00)
--- NOTE | 2020-04-04 18:00 | NUR ---
RN NOTES CALL RECEIVED FROM PT SON AND HE STATED THAT HE WILL COME TO VISIT HIS FATHER IN AM AND THEN HE CAN BE EXTUBATED .
--- NOTE | 2020-04-04 18:24 | NUR ---
RN NOTES PATIENT REMAINED INTUBATED AND SEDATED, ON DIPRIVAN AT 45MCG/KG/MIN AND LEVO AT .4 MCG/KG/MIN FOR BP SUPPORT, NO SIGNIFICANT CHANGES NOTED ON THIS SHIFT, SR UP x3, CALL LIGHT WITHIN EASY REACH ,BED LOCKED AND IN LOWEST POSITION, WILL ENDORSE TO MISSION COORDINATOR NURSE FOR CONTINUITY OF CARE
--- NOTE | 2020-04-04 20:00 | NUR ---
RN NOTES RECEIVED PT SEDATED WTIH DIPRIVAN, ORALLY INTUBATED WITH ETT 7.5 AND 27 CM AT LIP WITH VENT SETTING AC 16 TV 500 FIO2 45% PEEP 5 SR ON TELE MONITOR. NO ACUTE RESPIRATORY DISTRESS. OGTF NEPHRO @ 35 ML/HR TOLERATED WELL WITH HOB ELEVATED, PATENCY CHECKED NO RESIDUAL NOTED. KADE PICC LINE INTACT AND PATENT WITH CVP LEVELED AND CALIBRATED, FLUSHED AND ZEROED WITH GOOD WAVEFORM RUNNING WITH DIPRIVAN @ 45 MCG/KG/MIN AND LEVOPHED @ 0.4 MCG/KG/MIN TITRATED ORDERED. ON CVP 2 LEVELED AND ZEROED. WITH GOOD WAVEFORM. TURN AND REPOSITION , OFFLOADED EXTT WITH PILLOWS. HADDAD CATH OFF FROM BED DRAINED VIA GRAVITY. KEPT PT CLEAN AND DRY. WILL CONTINUE TO MONITOR.
--- NOTE | 2020-04-04 20:24 | NUR ---
received a call from son Sukhjinder [phone], states that he had a discussion with and plan is for terminal extubation tomorrow at 8am. Patient son and patient's will be here early tomorrow to be at patient bedside. competitive intelligence manager is available for any dc needs and family support. Addendum: 04/04/20 at 2024 by RAMONITA LOPEZ RN Amended: Links added.
[2020-04-04] MEDS: SENNOSIDES 8.6 MG TABLET PO SCH (21:36)
[2020-04-04] MEDS: INSULIN GLARGINE, 100 UNIT/ML CARTRIDGE SQ SCH (22:15)
[2020-04-05] VITALS (51 sets, daily range): BP systolic 72–115; BP diastolic 42–72
[2020-04-05] MEDS: PROPOFOL 100 ML IV PRN ×2 (00:10→05:13)
[2020-04-05] MEDS: IV NS 0.9% 250 ML IV PRN (04:09)
[2020-04-05] MEDS ORDERED: IV NS 0.9% 500 ML BAG IV PRN (04:30)
[2020-04-05 04:42] LABS: BASOPHILS # (AUTO) 0.1 /CMM (0.0-0.2); BASOPHILS % (AUTO) 1.3 % (0.0-2.0); EOSINOPHILS % (AUTO) 10.7 % (0.0-6.0); HEMATOCRIT 24 % (39-51); HEMOGLOBIN 7.8 g/dL (13.5-17.5); LYMPHOCYTES # (AUTO) 0.8 /CMM (0.8-4.8); LYMPHOCYTES % (AUTO) 9.7 % (20.0-44.0); MEAN CORPUSCULAR HGB CONC 33 g/dl (31.0-36.0); MEAN CORPUSCULAR VOLUME 99 fL (80-96); MONOCYTES # (AUTO) 0.7 /CMM (0.1-1.30); MONOCYTES % (AUTO) 9.2 % (2.0-12.0); NEUTROPHILS # (AUTO) 5.6 /CMM (1.8-8.9); NEUTROPHILS % (AUTO) 69.1 % (43.0-81.0); PLATELET COUNT (AUTO) 123 /CMM (150-450); RED BLOOD CELL COUNT(AUTO) 2.43 MIL/uL (4.5-6.0); WHITE BLOOD COUNT (AUTO) 8.1 K/uL (4.3-11.0)
[2020-04-05 05:06] LABS: CALCIUM, SERUM 8.2 mg/dL (8.5-10.1); CREATININE 3.3 mg/dL (0.6-1.3); POTASSIUM 3.5 mmol/L (3.5-5.1)
[2020-04-05] MEDS: NOREPINEPHRINE 32 MG in IV NS 0.9% 218 ML IV PRN (06:34)
--- NOTE | 2020-04-05 07:00 | NUR ---
RN NOTES NO SIGNIFICANT CHANGES NOTED REMAINED WITH ETT AND SAME VENT SETTING TOLERATED WELL. NO ACUTE RESPIRATORY DISTRESS. CONTINUE WITH DIPRIVAN, LEVOPHED TITRATED PROTOCOL AND CVP KEPT IN PLACED LEVELED AND CALIBRATED. WITH GOOD WAVEFORM. OGTF TOLERATED WELL KEPT HOB ELEVATED. KEPT PT CLEAN AND DRY TURNED AND REPOSITIONED Q2H AND PRN. ENDORSED CONTINUITY OF CARE TO AM NURSE.
--- NOTE | 2020-04-05 07:33 | NUR ---
per report/notes family visiting prior to terminal extubation. await MD orders and family
[2020-04-05] MEDS ORDERED: DC PROPOFOL WHEN EXTUBATED XX PRN (08:00)
--- NOTE | 2020-04-05 08:31 | NUR ---
RT RECEIVED PT ORALLY INTUBATED ETT 7.0 MARKED @ 27 CM LIP LINE WITH NOTED SETTINGS. DAYCARE ASSISTANT DONE AND TUBE IS SECURE W/ ANCHOR FAST. VENT ALARMS CHECKED AND AUDIBLE. VENT PLUGGED IN RED OUTLET. CRISTIAN B/S, SX W/ MOD THK NGUYEN SECRETIONS. AMBU BAG NOTED HOB. NO SOB OR RESP DISTRESS NOTED AT THIS TIME, WILL CONTINUE TO MONITOR T/O SHIFT.
[2020-04-05] MEDS ORDERED: AMIODARONE HCL 200 MG TABLET PO SCH (09:00)
--- NOTE | 2020-04-05 09:45 | NUR ---
family members feliciano dillon + x2 members arrived and said their good byes from outside patient's room. patient's belongings given to family Addendum: 04/05/20 at 1001 by INNA LAM RN (phone, battery recharger, case, glasses)
[2020-04-05] MEDS ORDERED: MORPHINE SULFATE PF DRIP 250 MG in IV D5W 240 ML IV PRN (10:00)
--- NOTE | 2020-04-05 10:03 | NUR ---
noted MD misc orders & carried out. DC all other meds
--- NOTE | 2020-04-05 12:22 | NUR ---
RT PER MD ORDER; TERMINALLY EXTUBATE PT. RN AND TRUSS PULLER HELPER AWARE.
--- NOTE | 2020-04-05 12:30 | NUR ---
patient terminally extubated
--- NOTE | 2020-04-05 12:31 | NUR ---
PATIENT ASYSTOLE ON THE MONITOR. NO PALPABLE PULSES. NO SPONTANEOUS BREATHING. NO BP. PUPILS FIXED AND DILATED. ON COMFORT MEASURES ONLY. PRONOUNCED.
--- NOTE | 2020-04-05 12:40 | NUR ---
primary provider, admitting, nursing sup, son notified of @1232 and one legacy notified (Spoke to Dolores - [phone]). belongings with son
== END 2020-04-05 16:56 | disposition expired | DRG 870 ==
LOC: ER 17:48 → ICU 20:18
PROVIDERS: ADMIT Internal Medicine; ATTEND Internal Medicine
PROC: 5A09457 Assistance with Respiratory Ventilation, 24-96 Consecutive Hours, Continuous Positive Airway Pressure (ICD-10-PCS; principal; 2020-03-13)
PROC: 30233L1 Transfusion of Nonautologous Fresh Plasma into Peripheral Vein, Percutaneous Approach (ICD-10-PCS; 2020-03-14)
PROC: 5A1955Z Respiratory Ventilation, Greater than 96 Consecutive Hours (ICD-10-PCS; 2020-03-16)
PROC: 0BH17EZ Insertion of Endotracheal Airway into Trachea, Via Natural or Artificial Opening (ICD-10-PCS; 2020-03-16)
PROC: 05HY33Z Insertion of Infusion Device into Upper Vein, Percutaneous Approach (ICD-10-PCS; 2020-03-20)
PROC: 5A1955Z Respiratory Ventilation, Greater than 96 Consecutive Hours (ICD-10-PCS; 2020-03-27)
PROC: 0BH17EZ Insertion of Endotracheal Airway into Trachea, Via Natural or Artificial Opening (ICD-10-PCS; 2020-03-27)
PROC: 02HV33Z Insertion of Infusion Device into Superior Vena Cava, Percutaneous Approach (ICD-10-PCS; 2020-04-01)
PROC: B548ZZA Ultrasonography of Superior Vena Cava, Guidance (ICD-10-PCS; 2020-04-01)
DX: A41.89 Other specified sepsis (principal); U07.1 COVID-19; J12.89 Other viral pneumonia; J96.21 Acute and chronic respiratory failure with hypoxia; I50.43 Acute on chronic combined systolic (congestive) and diastolic (congestive) heart failure; N17.0 Acute kidney failure with tubular necrosis; J15.9 Unspecified bacterial pneumonia; G92 Toxic encephalopathy; R65.21 Severe sepsis with septic shock; T83.511A Infection and inflammatory reaction due to indwelling urethral catheter, initial encounter; I13.0 Hypertensive heart and chronic kidney disease with heart failure and stage 1 through stage 4 chronic kidney disease, or unspecified chronic kidney disease; N17.9 Acute kidney failure, unspecified; N39.0 Urinary tract infection, site not specified; E87.4 Mixed disorder of acid-base balance; K92.2 Gastrointestinal hemorrhage, unspecified; E87.0 Hyperosmolality and hypernatremia; Z51.5 Encounter for palliative care; N18.9 Chronic kidney disease, unspecified; E78.5 Hyperlipidemia, unspecified; I48.91 Unspecified atrial fibrillation; E11.22 Type 2 diabetes mellitus with diabetic chronic kidney disease; I25.10 Atherosclerotic heart disease of native coronary artery without angina pectoris; Z95.5 Presence of coronary angioplasty implant and graft; Z79.899 Other long term (current) drug therapy; Z87.440 Personal history of urinary (tract) infections; Z86.19 Personal history of other infectious and parasitic diseases; Z79.02 Long term (current) use of antithrombotics/antiplatelets; Z79.82 Long term (current) use of aspirin; T50.2X5A Adverse effect of carbonic-anhydrase inhibitors, benzothiadiazides and other diuretics, initial encounter; Y92.129 Unspecified place in nursing home as the place of occurrence of the external cause; K21.9 Gastro-esophageal reflux disease without esophagitis; Z88.0 Allergy status to penicillin; N40.0 Benign prostatic hyperplasia without lower urinary tract symptoms; R62.7 Adult failure to thrive; E87.5 Hyperkalemia; D63.8 Anemia in other chronic diseases classified elsewhere; N13.9 Obstructive and reflux uropathy, unspecified; E83.41 Hypermagnesemia; D69.6 Thrombocytopenia, unspecified; M89.9 Disorder of bone, unspecified; E83.9 Disorder of mineral metabolism, unspecified; R57.1 Hypovolemic shock; B96.1 Klebsiella pneumoniae [K. pneumoniae] as the cause of diseases classified elsewhere; Y84.6 Urinary catheterization as the cause of abnormal reaction of the patient, or of later complication, without mention of misadventure at the time of the procedure; Y92.89 Other specified places as the place of occurrence of the external cause
CPT/HCPCS: 31720; 36410; 36415; 36569; 36600; 71045-TC; 80048-TC; 80053-TC; 81000-TC; 82272-TC; 82533; 82550-TC; 82728-TC; 82803-TC; 82947-TC; 82962-TC; 83540-TC; 83605-TC; 83615-TC; 83735-TC; 83880; 84100-TC; 84132-TC; 84155; 84165; 84439-TC; 84443-TC; 84478-TC; 84484-TC; 85025-TC; 85378-TC; 85730-TC; 86140-TC; 86480; 86850-TC; 87040-TC; 87070-TC; 87081-TC; 87086-TC; 87186-TC; 87899; 93308-TC; 94002-TC; 94003-TC; 94640-TC; 94760-TC; 94762-TC; 94799-TC; A4216; A4217; A6253; C1751; C9113; G0378; J0282; J0330; J0690; J0692; J1100; J1644; J1650; J1720; J1815; J1940; J1956; J2020; J2185; J2248; J2274; J2916; J3262; J3370; J3490; J7030; J7040; J7050; J7060; J7070; P9017-BL; P9047; U0003-CS